=== PATIENT | male | born 1990 | race Caucasian/White ===

== ENCOUNTER 2016-08-10 12:20 | Emergency (ER) | payer SELFPAY ==
[2016-08-10] MEDS ORDERED: IBUPROFEN 800 MG TABLET PO ONE (13:01)
--- NOTE | 2016-08-10 13:02 | ER Document Report ---
ED Medical Screen (RME) - General Chief Complaint: Sore Throat Stated Complaint: SORE THROAT Time seen by provider: 12:57 Mode of Arrival: Ambulatory Information source: Patient TRAVEL OUTSIDE OF THE [place] IN LAST 30 DAYS: No - HPI Patient complains to provider of: PRODUCTIVE COUGH, SORE THROAT, EARS HURT Onset: Other - ONE MONTH Onset/Duration: Worse Quality of pain: Achy Severity: Moderate Pain Level: 3 Associated Symptoms: Cough (productive), Earache, Hurts to breath, Sore throat. denies: Fever Exacerbated by: Coughing Relieved by: Denies Similar symptoms previously: No Recently seen / treated by doctor: No - Related Data Smoking: Cigarettes Frequency of alcohol use: None Drug Abuse: None Allergies/Adverse Reactions: cefaclor [From Ceclor] Adverse Reaction (Verified 08/10/16 12:36) Urticaria Past Medical History - Social History Frequency of alcohol use: None Drug Abuse: None Physical Exam - Vital signs Vitals: Temp Pulse Resp BP Pulse Ox 98.5 F 66 16 112/58 L 100 08/10/16 12:31 08/10/16 12:31 08/10/16 12:31 08/10/16 12:31 08/10/16 12:31 Course - Vital Signs Vital signs: Temp Pulse Resp BP Pulse Ox 98.5 F 66 16 112/58 L 100 08/10/16 12:31 08/10/16 12:31 08/10/16 12:31 08/10/16 12:31 08/10/16 12:31
--- NOTE | 2016-08-10 14:16 | ER Document Report ---
ED General - General Chief Complaint: Sore Throat Stated Complaint: SORE THROAT Mode of Arrival: Ambulatory Notes: Patient is complaining of a sore throat, head and chest congestion, and headache for the past month. He thought it might be allergies and has been taking [id number] allergy medicine, with no relief. He says the sore throat has worsened over the last 3 or 4 days. His cough is productive of yellow clear phlegm, but no blood. Has had some diarrhea occasionally, but no vomiting. Has not had any fever. 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 He is on gabapentin, meloxicam, Nucynta, and Toradol for his chronic back pain. Allergic to Ceclor, but no other medicines. TRAVEL OUTSIDE OF THE [place] IN LAST 30 DAYS: No - Related Data Allergies/Adverse Reactions: cefaclor [From Ceclor] Adverse Reaction (Verified 08/10/16 12:36) Urticaria Past Medical History - General Information source: Patient - Social History Smoking Status: Unknown if Ever Smoked Cigarette use (# per day): No Frequency of alcohol use: None Drug Abuse: None Family History: Reviewed & Not Pertinent Patient has suicidal ideation: No Patient has homicidal ideation: No Review of Systems - Review of Systems Notes: REVIEW OF SYSTEMS: CONSTITUTIONAL : Denies fever. EENT: See history of present illness. Denies eye, ear, nose or other symptoms. CARDIOVASCULAR: Denies chest pain. RESPIRATORY: See history of present illness. No shortness of breath. GASTROINTESTINAL: Denies abdominal pain or nausea, vomiting, but some occasional diarrhea. GENITOURINARY: Denies difficulty or painful urinating, urinary frequency, blood in urine. MUSCULOSKELETAL: See history of present illness. Denies neck pain. Denies joint pain or swelling. SKIN: Denies rash or skin lesions. NEUROLOGICAL: Denies LOC or altered mental status. Denies sensory loss or motor deficits. ALL OTHER SYSTEMS REVIEWED AND NEGATIVE. Physical Exam - Vital signs Vitals: Temp Pulse Resp BP Pulse Ox 98.5 F 66 16 112/58 L 100 08/10/16 12:31 08/10/16 12:31 08/10/16 12:31 08/10/16 12:31 08/10/16 12:31 Interpretation: Normal - Notes Notes: PHYSICAL EXAMINATION: GENERAL: Well-appearing, in no acute distress. Afebrile. Voice sounds normal. HEAD: Atraumatic, normocephalic. ENT: oropharynx is quite crimson red bilaterally, right slightly more so than the left. However, there are no exudates and only slight soft-tissue swelling. No apparent abscess visualized. No involvement of the airway. Voice sounds normal.. Moist mucous membranes. NECK: Normal range of motion, supple. LUNGS: Breath sounds clear and equal bilaterally. HEART: Regular rate and rhythm without murmurs. No tachycardia. ABDOMEN: Soft, nontender. No guarding or rebound. BACK: No tenderness throughout entire back. EXTREMITIES: Normal range of motion without pain. NEUROLOGICAL: Normal speech, normal gait. Normal sensory, motor, and reflex exams. Awake, alert, and oriented x3. Cranial nerves normal. SKIN: Warm, dry, no rashes. Course - Re-evaluation Re-evalutation: 08/10/16 14:28 Chest x-ray is normal. - Vital Signs Vital signs: Temp Pulse Resp BP Pulse Ox 98.5 F 66 16 112/58 L 100 08/10/16 12:31 08/10/16 12:31 08/10/16 12:31 08/10/16 12:31 08/10/16 12:31 - Diagnostic Test Radiology results interpreted by me: 08/10/16 14:16 Chest x-ray is normal. Discharge - Discharge Clinical Impression: Sore throat Pharyngitis Qualifiers: Pharyngitis/tonsillitis etiology: unspecified etiology Qualified Code(s): J02.9 - Acute pharyngitis, unspecified Condition: Stable Disposition: HOME, SELF-CARE Additional Instructions: SORE THROAT: Sore throats may be caused by viruses, bacteria, or fungi. Most are due to a virus, and must get better on their own. Bacterial sore throats, particularly those due to "strep," need treatment with antibiotics. If an antibiotic is prescribed, be sure to take the medication for a full 10 days. Failure to take the antibiotic can result in complications such as rheumatic fever. Sometimes, an injection of antibiotics is given instead of pills or liquid. This single "shot" is equal in effectiveness to the oral medication. To relieve symptoms, take acetaminophen for pain. Sip clear liquids frequently, or eat popsicles or ice chips. Anesthetic sprays or lozenges may help. Make sure the air in the room is not too dry. Avoid using decongestants or antihistamines. Call the doctor if there is no improvement in two days, or if you have difficulty breathing, increasing throat pain, high fever, rash, or frequent vomiting. Possible STREP THROAT: Your sore throat is may be due to the streptococcus germ (strep throat). Strep throat usually makes you feel quite ill with fever and aches, headache, swollen sore throat, and tender bumps under the angles of the jaw. Strep throat requires antibiotic treatment. Although the sore throat may go away by itself, complications such as rheumatic fever, kidney disease, or throat abscess can occur. We usually prescribe antibiotics by mouth. Be sure to take the medicine until it's gone. If you stop early, the strep may come back. If you are vomiting, are severely ill, or can't remember to take pills, we can give you an antibiotic shot. Take acetaminophen or ibuprofen for pain and fever. Sip frequent clear liquids, or use popsicles or ice chips. Anesthetic sprays or lozenges may help. Make sure the air in the room is not too dry. Avoid using decongestants or antihistamines. Call the doctor if there is no improvement in three days, or if you have difficulty breathing, increasing throat pain, high fever, rash, or frequent vomiting. PENICILLIN V K: You have been given a prescription for Penicillin VK. Your physician has determined that this is the best antibiotic for your condition. Pen VK can be taken with meals, however more of the antibiotic gets into the bloodstream if it's taken on an empty stomach. Penicillin usually has no side effects. However, allergy to penicillins is common. If you have had an allergic reaction to any drug of the penicillin family, you should never take any other penicillin. Notify your doctor at once if you develop hives, itching, swelling, faintness, or shortness of breath. FOLLOW-UP CARE: If you have been referred to a physician for follow-up care, call the physician s office for an appointment as you were instructed or within the next two days. If you experience worsening or a significant change in your symptoms, notify the physician immediately or return to the Emergency Department at any time for re-evaluation. Prescriptions: Penicillin V Potassium [Penicillin Vk 500 mg Tablet] 500 mg PO QID #30 tablet Forms: Return to Work
[2016-08-10 14:33] VITALS: BP 103/55
== END 2016-08-10 14:33 | disposition home or self-care (01) ==
LOC: ER 12:20
DX: R09.89 Other specified symptoms and signs involving the circulatory and respiratory systems (principal); J02.9 Acute pharyngitis, unspecified; R51 Headache
CPT/HCPCS: 71020; 99283

== ENCOUNTER 2017-01-24 00:13 | Emergency (ER) | payer SELFPAY ==
[2017-01-24] MEDS ORDERED: AMOXICILLIN TR/POT CLAVULANATE 500-125 MG TAB PO ONE (03:24)
[2017-01-24] MEDS ORDERED: AMOXICILLIN TRIHYDRATE 500 MG CAPSULE PO ONE (03:24)
--- NOTE | 2017-01-24 03:26 | ER Document Report ---
ED Animal Bite - General Chief Complaint: Dog Bite Stated Complaint: DOG BITE Time Seen by Provider: 01/24/17 02:58 Notes: Patient is a 26-year-old male comes emergency department for chief complaint of dog bite to the right hand. Bites mainly over the right index finger. Patient states that the dog was stuck in a great, he approached the dog and freed its high in the leg from the great, the dog turned and bit him while he was doing this. He states the dog ran off afterwards. Gamez mix. Patient states he is already vaccinated for rabies and he also is up-to-date on his tetanus. Event happened this morning, he came in tonight because of the swelling and pain to his hand. Past medical history of chronic lower back pain, on gabapentin, tramadol, meloxicam. TRAVEL OUTSIDE OF THE [place] IN LAST 30 DAYS: No - Related Data Allergies/Adverse [facility]: [facility] Adverse Reaction (Verified 01/24/17 03:10) Urticaria Past Medical History - General Information source: Patient - Social History Smoking Status: Never Smoker Cigarette use (# per day): No Chew tobacco use (# tins/day): No Frequency of alcohol use: None Drug Abuse: None Lives with: Family Family History: Reviewed & Not Pertinent Renal/ Medical History: Denies: Hx Peritoneal Dialysis Musculoskeltal Medical History: Reports Hx Arthritis, Reports Hx Musculoskeletal Trauma Surgical Hx: Negative - Immunizations Immunizations up to date: Yes Hx Diphtheria, Pertussis, Tetanus Vaccination: Yes - unknown Review of Systems - Review of Systems Constitutional: No symptoms reported EENT: No symptoms reported Cardiovascular: No symptoms reported Respiratory: No symptoms reported Gastrointestinal: No symptoms reported Genitourinary: No symptoms reported Male Genitourinary: No symptoms reported Musculoskeletal: See HPI Skin: See HPI Hematologic/Lymphatic: No symptoms reported Neurological/Psychological: No symptoms reported Physical Exam - Vital signs Vitals: Temp Pulse Resp BP Pulse Ox 98.3 F 70 18 112/66 99 01/24/17 00:27 01/24/17 00:27 01/24/17 00:27 01/24/17 00:27 01/24/17 00:27 Interpretation: Normal - General General appearance: Appears well, Alert In distress: None - HEENT Head: Normocephalic, Atraumatic Eyes: Normal Conjunctiva: Normal Extraocular movements intact: Yes Eyelashes: Normal Pupils: PERRL Nasal: Normal Mouth/Lips: Normal Mucous membranes: Normal Pharynx: Normal Neck: Normal - Respiratory Respiratory status: No respiratory distress Chest status: Nontender Breath sounds: Normal Chest palpation: Normal - Cardiovascular Rhythm: Regular. No: Tachycardia Heart sounds: Normal auscultation, S1 appreciated, S2 appreciated Murmur: No - Abdominal Inspection: Normal Distension: No distension Bowel sounds: Normal Tenderness: Nontender Organomegaly: No organomegaly - Back Back: Normal, Nontender - Extremities General upper extremity: Other - Right hand with what appears to be small punctures over the lateral aspect of the right index finger with some soft tissue swelling of the finger, patient can still perform range of motion with flexion and extension although this appears to be painful. No erythema, no induration or fluctuance, normal capillary refill and sensation, there are already small scabs over the punctures, area has already been cleaned. Normal hand exam otherwise. Normal wrist, arm exam otherwise. General lower extremity: Normal inspection, Nontender, Normal ROM, Normal strength - Neurological Neuro grossly intact: Yes Cognition: Normal Orientation: AAOx4 Jame Coma Scale Eye Opening: Spontaneous Jame Coma Scale Verbal: Oriented [place] Coma Scale Motor: Obeys Commands Jame Coma Scale Total: 15 Speech: Normal Motor strength normal: LUE, RUE, LLE, RLE Sensory: Normal - Psychological Associated symptoms: Normal affect, Normal mood - Skin Skin Temperature: Warm Skin Moisture: Dry Skin Color: Normal Course - Re-evaluation Re-evalutation: Patient already initially cleaned the wound, patient is up-to-date on tetanus and rabies vaccines, patient placed on Augmentin, x-ray with no fracture, patient does have some soft tissue swelling, I discussed care of the wound, follow-up, strict return precautions, patient states understanding and agreement. - Vital Signs Vital signs: Temp Pulse Resp BP Pulse Ox 98.3 F 54 L 18 104/68 100 01/24/17 05:24 01/24/17 04:17 01/24/17 05:24 01/24/17 05:24 01/24/17 05:24 - Diagnostic Test Radiology reviewed: Image reviewed, Reports reviewed Discharge - Discharge Clinical Impression: Dog bite Qualifiers: Encounter type: initial encounter Qualified Code(s): W54.0XXA - Bitten by dog, initial encounter Finger injury Qualifiers: Encounter type: initial encounter Laterality: right Qualified Code(s): S69.91XA - Unspecified injury of right wrist, hand and finger(s), initial encounter Condition: Stable Disposition: HOME, SELF-CARE Additional Instructions: No fracture or foreign body is seen on x-ray. Take the Augmentin antibiotic as directed, take probiotic to avoid diarrhea Apply ice to the finger/hand (3-4 times a day for the first day), you can serena tape this for comfort, clean with soap and water. Follow-up with primary care. Return immediately for any signs of infection including increased swelling, redness, abnormal heat, fever, or any other concerning symptoms. Prescriptions: Amox Tr/Potassium Clavulanate [Augmentin 875-125 Tablet] 1 tab PO BID 7 Days
--- NOTE | 2017-01-24 04:48 | RADIOLOGY REPORT (SQ) ---
EXAM DESCRIPTION: HAND RIGHT 3 VIEWS COMPLETED DATE/TIME: 01/24/2017 4:16 am REASON FOR STUDY: dog bite, swelling COMPARISON: None. EXAM PARAMETERS: NUMBER OF VIEWS: Three views. TECHNIQUE: AP, lateral and oblique radiographic images acquired of the right hand. LIMITATIONS: None. FINDINGS: MINERALIZATION: Normal. BONES: No acute fracture or dislocation. No worrisome bone lesions. JOINTS: No effusions. SOFT TISSUES: No soft tissue swelling. No radiopaque foreign body. Known dog bite soft tissue injur y of the right 2nd finger. OTHER: No other significant finding. IMPRESSION: No significant bone or joint defect. Known soft tissue injury. TECHNICAL DOCUMENTATION: JOB ID: [id number] [employer]- All Rights Reserved
[2017-01-24] MEDS ORDERED: HYDROCODONE/ACETAMINOPHEN 5-325 MG 6 TAB/DSPK PO PRN (04:55)
[2017-01-24 05:25] VITALS: BP 104/68
== END 2017-01-24 05:25 | disposition home or self-care (01) ==
LOC: ER 00:13
DX: S61.451A Open bite of right hand, initial encounter (principal); M79.89 Other specified soft tissue disorders; M79.641 Pain in right hand; W54.0XXA Bitten by dog, initial encounter
CPT/HCPCS: 99283

== ENCOUNTER 2017-01-25 02:21 | Inpatient (IN) | payer SELFPAY ==
[2017-01-25] MEDS ORDERED: MORPHINE SULFATE 10 MG/ML INJ IV ONE (03:51)
[2017-01-25] MEDS ORDERED: AMPICILLIN SOD/SULBACTAM 3 GM VIAL IV ONE (03:51)
[2017-01-25] MEDS ORDERED: VANCOMYCIN HCL INJ 1000 MG VIAL IV ONE (03:51)
--- NOTE | 2017-01-25 04:05 | ER Document Report ---
HPI - HPI Patient complains to provider of: dog bite Onset: Other - 2 days ago Onset/Duration: Worse Quality of pain: Sharp Pain Level: 4 Context: Patient states he was bit by dog 2 days ago. Patient states that he was here yesterday for evaluation after dog bite. Patient was placed on Augmentin and has had 2 doses of this medication. Patient's tetanus immunization as well as rabies immunizations are currently up-to-date. Patient denies any fever. Patient complains of increased hand pain, redness and swelling. Patient states that he squeezed on his right second finger and noticed pus draining from his finger. Associated Symptoms: Other - right hand pain, swelling and redness. denies: Fever Exacerbated by: Movement Relieved by: Denies Similar symptoms previously: No Recently seen / treated by doctor: Yes - ROS ROS below otherwise negative: Yes Systems Reviewed and Negative: Yes All other systems reviewed and negative - CONSTITUTIONAL Constitutional: DENIES: Fever, Chills - NEURO Neurology: DENIES: Weakness - MUSCULOSKELETAL Musculoskeletal: REPORTS: Extremity pain, Swelling - DERM Skin Color: Erythema Skin Problems: Puncture Wound Past Medical History - General Information source: Patient - Social History Smoking Status: Never Smoker Frequency of alcohol use: None Drug Abuse: None Lives with: Family Family History: Reviewed & Not Pertinent Renal/ Medical History: Denies: Hx Peritoneal Dialysis Musculoskeltal Medical History: Reports Hx Arthritis, Reports Hx Musculoskeletal Trauma, Reports Other - low back pain Past Surgical History: Reports: Other - plastic facial - Immunizations Immunizations up to date: Yes Hx Diphtheria, Pertussis, Tetanus Vaccination: Yes - unknown Vertical Provider Document - CONSTITUTIONAL Agree With Documented VS: Yes Exam Limitations: No Limitations General Appearance: WD/WN, No Apparent Distress - INFECTION CONTROL TRAVEL OUTSIDE OF THE [place] IN LAST 30 DAYS: No - HEENT HEENT: Atraumatic, Normocephalic - NECK Neck: Normal Inspection - RESPIRATORY Respiratory: Breath Sounds Normal, No Respiratory Distress O2 Sat by Pulse Oximetry: 96 - CARDIOVASCULAR Cardiovascular: Regular Rate, Regular Rhythm Pulses: Normal: Radial - MUSCULOSKELETAL/EXTREMETIES Musculoskeletal/Extremeties: Tender - Right hand and second finger tenderness with swelling. Patient with marked erythema surrounding the proximal phalanx of right second finger extending to the palmar surface of right hand. Patient with 4 puncture wounds to the palmar surface of right second finger and one puncture wound to dorsal aspect of right second finger. Patient with an additional puncture wound to hyporthenar eminence. With tenderness with palpation along the flexor tendon of right second finger. With increased tenderness with passive extension of right second finger - NEURO Level of Consciousness: Awake, Alert, Appropriate Motor/Sensory: No Motor Deficit - DERM Integumentary: Warm, Dry. negative: Abscess Notes: erythema involving right second finger and palmar surface of right hand Course - Re-evaluation Re-evalutation: 01/25/17 04:[address] Kapadia, Dr. Kapadia the bedside for examination, recommends IV vancomycin and Unasyn and consultation with hand specialist for likely admission. - Vital Signs Vital signs: Temp Pulse Resp BP Pulse Ox 98.7 F 80 20 127/82 H 96 01/25/17 02:25 01/25/17 02:25 01/25/17 02:25 01/25/17 02:25 01/25/17 02:25 - Laboratory Result Diagrams: 01/25/17 04:00 01/25/17 04:00 - Consults No standard instances Time consulted: 04:07 Reason for consultation: 01/25/17 04:[address] milton regarding patient presentation and exam findings, agrees with plan for admission, recommends having patient on IV Unasyn, keeping patient n.p.o. and he will see patient in the morning Consulted provider: will see as inpatient Discharge - Discharge Clinical Impression: Dog bite Qualifiers: Encounter type: initial encounter Qualified Code(s): W54.0XXA - Bitten by dog, initial encounter Finger injury Qualifiers: Encounter type: initial encounter Laterality: right Qualified Code(s): S69.91XA - Unspecified injury of right wrist, hand and finger(s), initial encounter Cellulitis Qualifiers: Site of cellulitis: extremity Site of cellulitis of extremity: upper extremity Laterality: right Qualified Code(s): L03.113 - Cellulitis of right upper limb Condition: Stable Disposition: ADMITTED INPATIENT Admitting Provider: dr milton Unit Admitted: Medical Floor
[2017-01-25 04:16] LABS: ABSOLUTE EOSINOPHILS # (AUTO) 0.1 10^3/uL (0.0-0.6); ABSOLUTE LYMPHOCYTES (AUTO) 1.6 10^3/uL (0.5-4.7); ABSOLUTE MONOCYTES (AUTO) 0.8 10^3/uL (0.1-1.4); ABSOLUTE NEUT (AUTO) 7.7 10^3/uL (1.7-8.2); BASOPHILS % (AUTO) 0.4 % (0-2); EOSINOPHILS % (AUTO) 0.9 % (0-6); HEMOGLOBIN 15.1 g/dL (13.5-17.0); HGB HCT DIFFERENCE 1.3; LYMPHOCYTES % (AUTO) 15.4 % (13-45); MEAN CORPUSCULAR HEMOGLOBIN 29.9 pg (27.0-33.4); MEAN CORPUSCULAR HGB CONC 34.4 g/dL (32.0-36.0); MEAN CORPUSCULAR VOLUME 87 fl (80-97); MONOCYTES % (AUTO) 7.7 % (3-13); RED BLOOD COUNT 5.06 10^6/uL (4.35-5.55); RED CELL DISTRIBUTION WIDTH 12.9 % (11.5-14.0); SEGMENTED NEUTROPHILS % (AUTO) 75.6 % (42-78); WHITE BLOOD COUNT 10.2 10^3/uL (4.0-10.5)
[2017-01-25 04:36] LABS: ANION GAP 13 (5-19); BLOOD UREA NITROGEN 15 mg/dL (7-20); CALCIUM 9.5 mg/dL (8.4-10.2); CARBON DIOXIDE 24 mmol/L (22-30); CHLORIDE 104 mmol/L (98-107); CREATININE RESULT 1.13 mg/dL (0.52-1.25); GLUCOSE 91 mg/dL (75-110); POTASSIUM 3.7 mmol/L (3.6-5.0); SODIUM 140.7 mmol/L (137-145)
[2017-01-25] MEDS ORDERED: NORMAL SALINE 1000 ML 1,000 ML IV PRN (04:45)
[2017-01-25] MEDS ORDERED: RINGERS SOLUTION,LACTATED 1,000 ML IV PRN (08:12)
[2017-01-25] MEDS ORDERED: GLUCAGON,HUMAN RECOMB 1 MG INJ SUBCUT PRN (08:12)
[2017-01-25] MEDS ORDERED: DEXTROSE 50%-WATER 25 GM/50 ML DISP.SYRIN IV PRN ×2 (08:12)
[2017-01-25] MEDS ORDERED: DEXTROSE 40% GEL 15 GM TUBE PO PRN ×2 (08:12)
[2017-01-25] MEDS ORDERED: LIDOCAINE 2% INJ-PF (20 MG/ML) 10 ML AMPUL ONE (10:11)
[2017-01-25] MEDS ORDERED: GLYCOPYRROLATE INJ 0.4 MG/2 ML VIAL ONE (10:11)
[2017-01-25] MEDS ORDERED: AMPICILLIN SOD/SULBACTAM 3 GM VIAL IV SCH (10:20)
[2017-01-25] MEDS: MORPHINE SULFATE 10 MG/ML INJ IV PRN ×2 (10:59→22:46)
[2017-01-25] MEDS: AMPICILLIN SODIUM/SULBACTAM NA 1.5 GM in NORMAL SALINE 50 ML IV SCH ×2 (11:53→18:01)
[2017-01-25] MEDS ORDERED: AMPICILLIN SOD/SULBACTAM 1.5 GM VIAL IV SCH (12:00)
--- NOTE | 2017-01-25 13:03 | PDOC H&P ---
History of Present Illness Admission Date/PCP: 01/25/17 08:12 Patient complains of: Right hand pain History of Present Illness: ADIS BAI is a 26 year old male who sustained a dog bite on 01/23/17 of a unknown dog when he was attempting to help the dog that was stuck . The dog subsequently bit him in the right hand. He was seen at the emergency room we restarted on Augmentin. After approximately 24 hours of work he noticed increasing redness swelling and pain in his hand and difficulty grasping objects. He also complains of numbness and tingling in his index finger since the date of injury. Denies fever chills or sweats. Pain 01/15. Past Medical History Musculoskeltal Medical History: Reports: Arthritis, Other - low back pain Past Surgical History Past Surgical History: Reports: Other - plastic facial Social History Lives with: Family Smoking Status: Never Smoker - Advance Directive Resuscitation Status: Full Code Family History Family History: Reviewed & Not Pertinent Parental Family History Reviewed: No Children Family History Reviewed: No Sibling(s) Family History Reviewed.: No Medication/Allergy Home Medications: Amitriptyline HCl [Elavil 10 Mg Tablet] 10 mg PO QHS 01/25/17 Gabapentin 600 mg PO TIDP PRN 01/25/17 Meloxicam [Mobic] 15 mg PO DAILY 01/25/17 Tramadol HCl 50 mg PO BIDP PRN 01/25/17 Allergies/Adverse Reactions: cefaclor [From [facility]] Adverse Reaction (Verified 01/24/17 03:10) Urticaria Review of Systems All systems: as per PMH Constitutional: ABSENT: chills, fever(s), headache(s), weight gain, weight loss Eyes: ABSENT: visual disturbances Ears: ABSENT: hearing changes Cardiovascular: ABSENT: chest pain, dyspnea on exertion, edema, orthropnea, palpitations Respiratory: ABSENT: cough, hemoptysis Gastrointestinal: ABSENT: abdominal pain, constipation, diarrhea, hematemesis, hematochezia, nausea, vomiting Genitourinary: ABSENT: dysuria, hematuria Musculoskeletal: PRESENT: as per HPI Integumentary: PRESENT: wounds. ABSENT: rash Neurological: ABSENT: abnormal gait, abnormal speech, confusion, dizziness, focal weakness, syncope Psychiatric: ABSENT: anxiety, depression, homidical ideation, suicidal ideation Endocrine: ABSENT: cold intolerance, heat intolerance, menstrual abnormalities, polydipsia, polyuria Hematologic/Lymphatic: ABSENT: easy bleeding, easy bruising, lymphadenopathy Physical Exam Vital Signs: Temp Pulse Resp BP Pulse Ox 98.0 F 79 12 99/58 L 99 01/25/17 11:13 01/25/17 11:13 01/25/17 11:13 01/25/17 11:13 01/25/17 11:13 General appearance: PRESENT: no acute distress, well-developed, well-nourished Head exam: PRESENT: atraumatic, normocephalic Eye exam: PRESENT: conjunctiva pink, EOMI, PERRLA. ABSENT: scleral icterus Ear exam: PRESENT: normal external ear exam Mouth exam: PRESENT: moist, tongue midline Neck exam: PRESENT: full ROM. ABSENT: carotid bruit, JVD, lymphadenopathy, thyromegaly Cardiovascular exam: PRESENT: RRR. ABSENT: diastolic murmur, rubs, systolic murmur Pulses: PRESENT: normal dorsalis pedis pul, +2 pedal pulses bilateral Vascular exam: PRESENT: normal capillary refill GI/Abdominal exam: PRESENT: normal bowel sounds, soft. ABSENT: distended, guarding, mass, organolmegaly, rebound, tenderness Rectal exam: PRESENT: deferred Musculoskeletal exam: PRESENT: other - Right hand: Notable erythema throughout the palm of the hand beginning at the PIP joint of the index finger palmarly extending along the second webspace to just proximal to the level of the A1 marilee exiting along the thumb-index webspace. Tenderness to palpation on the flexor sheath. Pain with extension. Notable swelling. Patient lacks 2 point discrimination along the radial digital nerve distribution of the index finger. 2 point discrimination 5 mm ulnar digital nerve. The less than 2 seconds. Patient is intact IP/MP joint flexion but limited secondary to pain. No tracking erythema proximal to the wrist crease. Neurological exam: PRESENT: alert, awake, oriented to person, oriented to place , oriented to time, oriented to situation, CN II-XII grossly intact. ABSENT: motor sensory deficit Psychiatric exam: PRESENT: appropriate affect, normal mood. ABSENT: homicidal ideation, suicidal ideation Skin exam: PRESENT: dry, intact, warm. ABSENT: cyanosis, rash Assessment & Plan - Diagnosis (1) Flexor tenosynovitis of finger Is this a current diagnosis for this admission?: YesPlan: Examination patient has findings of early flexor tenosynovitis secondary to dog bite wound. Patient states she is up-to-date on his tetanus as well as rabies. I given a flexor Fern synovitis I have recommended operative intervention which includes irrigation and debridement of the index finger. Patient understands risks and benefits of the surgical procedure including neurovascular wrist, postoperative pain, recurrent infection requiring repeat surgical intervention, postoperative stiffness and contracture and any unforeseen complication. Patient has verbalized understanding and consented for the above procedure. In the time being he will be started on Unasyn for Pasteurella coverage.
[2017-01-25] MEDS ORDERED: BUPIVACAINE HCL 0.5 % INJ/PF 30 ML SDV ONE (18:08)
[2017-01-25] MEDS ORDERED: LIDOCAINE 1% INJ-PF (10 MG/ML) 30 ML SDV ONE (18:09)
[2017-01-25] MEDS ORDERED: BACITRACIN INJ 50,000 UNIT VIAL ONE (18:09)
[2017-01-25] MEDS ORDERED: PROPOFOL INJ 200 MG/20 ML VIAL IV ONE (18:11)
[2017-01-25] MEDS ORDERED: ACETAMINOPHEN 100 ML IV ONE (18:11)
[2017-01-25] MEDS ORDERED: MIDAZOLAM 2 MG/2 ML INJ ONE ×2 (18:11)
[2017-01-25] MEDS ORDERED: FENTANYL CITRATE INJ/PF 100 MCG/2 ML AMPUL ONE (18:11)
[2017-01-25] MEDS ORDERED: DEXMEDETOMIDINE INJ 80 MCG/20 ML VIAL IV ONE (18:12)
[2017-01-25] MEDS ORDERED: OXYCODONE-ACETAMINOPHEN 5-325 MG TABLET PO PRN ×2 (18:46)
[2017-01-25] MEDS ORDERED: ONDANSETRON HCL INJ/PF 4 MG/2 ML SDV IV PRN ×2 (18:46→23:24)
[2017-01-25] MEDS ORDERED: PROMETHAZINE HCL INJ 25 MG/1 ML VIAL IV PRN ×2 (18:46)
[2017-01-25] MEDS ORDERED: DIPHENHYDRAMINE HCL 50 MG/ML VIAL IV PRN (18:46)
[2017-01-25] MEDS ORDERED: FENTANYL CITRATE INJ/PF 100 MCG/2 ML AMPUL IV PRN ×3 (18:46)
[2017-01-25] MEDS ORDERED: MORPHINE SULFATE 10 MG/ML INJ IV PRN (18:46)
[2017-01-25] MEDS ORDERED: MEPERIDINE HCL/PF INJ 25 MG/1 ML DISP.SYRIN IV PRN (18:46)
--- NOTE | 2017-01-25 19:07 | Operative Report ---
Operative Report PREOPERATIVE DIAGNOSIS: Flexor Tenosynovitis Right Index Finger S/P Dog Bite POSTOPERATIVE DIAGNOSIS: Same OPERATION: Irrigation and Debridement Flexor Sheath Right Index Finger SURGEON: OSBALDO HARRINGTON ANESTHESIA: GA TISSUE REMOVED OR ALTERED: Aerobic/Anaerobic Culture COMPLICATIONS: None ESTIMATED BLOOD LOSS: Minimal PROCEDURE: Indication for above procedure: 26-year-old male who sustained a dog bite injury to his right hand. He was seen at the emergency room approximately 48 hours ago and he was started on Augmentin. According to the patient over the past 24 hours he had increasing pain swelling and redness. He was then admitted to the orthopedic service. On examination patient had findings suggesting flexor tenosynovitis thus I recommended operative intervention. Risks and benefits were explained to the patient understanding consented for the procedure. Procedure In Detail: Patient was seen and evaluated in the preoperative holding area. The right upper extremity was initialized and marked. Patient received 2g of Ancef IV for bacterial prophylaxis. Patient was taken back to the operative room where transferred to the operative table and placed under general anesthesia. Once they were adequately anesthetized a nonsterile tourniquet was placed on the upper extremity. A surgical team debriefing was performed ensuring all instrumentation was available, the surgical procedure was discussed with possible concerns reviewed. Digital block was performed utilizing 10 cc of 0.5 % Marcaine without epinephrine. The upper extremity was prepped with Betadine and draped in a sterile fashion. A timeout was done identifying correct patient, procedure and extremity everyone in attendance agree with this and verbalized no concerns. The extremity was elevated the tourniquet was inflated to 250 mmHg. A Jessica's shaped skin incision was made centered over the MCP joint at the location of the patient's puncture wound. Culture swabs were obtained from the site of injury. Radial and ulnar neurovascular bundle was identified and retracted, the A1 marilee was then released in its entirety. There was evidence of cloudy appearing tissue from the flexor sheath. A second incision was made distally at the level of the DIP joint. Blunt dissection was performed. A pediatric feeding tube was then placed from proximal to distal copious amounts of irrigation were placed into the wound site and through the pediatric feeding tube. Pediatric feeding tube was left in place for drainage purposes and the skin incisions closed loosely with interrupted 4-0 nylon suture. Wound was dressed with Xeroform 4 x 4's and a loosely applied Coban. Postoperative plan: Patient continue IV antibiotics until clinical improvement is noted. Anticipate discharge possible . He will be continued on Unasyn with cultures to find alternative microbe.
[2017-01-25] MEDS: OXYCODONE-ACETAMINOPHEN 5-325 MG TABLET PO PRN (21:37)
[2017-01-25] MEDS: CIPROFLOXACIN 400 MG/D5W RTU 200 ML IV SCH (21:37)
[2017-01-25] MEDS: AMPICILLIN SODIUM/SULBACTAM NA 3 GM in NORMAL SALINE 100 ML IV SCH (23:17)
[2017-01-26] MEDS ORDERED: AMPICILLIN SOD/SULBACTAM 3 GM VIAL IV SCH
[2017-01-26] MEDS: OXYCODONE-ACETAMINOPHEN 5-325 MG TABLET PO PRN ×2 (02:15→19:45)
[2017-01-26] MEDS: MORPHINE SULFATE 10 MG/ML INJ IV PRN ×5 (02:15→21:57)
[2017-01-26] MEDS: AMPICILLIN SODIUM/SULBACTAM NA 3 GM in NORMAL SALINE 100 ML IV SCH ×4 (05:22→23:40)
[2017-01-26 07:10] LABS: ABSOLUTE BASOPHILS # (AUTO) 0.1 10^3/uL (0.0-0.2); ABSOLUTE EOSINOPHILS # (AUTO) 0.2 10^3/uL (0.0-0.6); ABSOLUTE LYMPHOCYTES (AUTO) 2.1 10^3/uL (0.5-4.7); ABSOLUTE MONOCYTES (AUTO) 0.9 10^3/uL (0.1-1.4); ABSOLUTE NEUT (AUTO) 8.6 10^3/uL (1.7-8.2); BASOPHILS % (AUTO) 0.7 % (0-2); EOSINOPHILS % (AUTO) 1.5 % (0-6); HEMATOCRIT 44.9 % (37.9-51.0); HEMOGLOBIN 14.9 g/dL (13.5-17.0); HGB HCT DIFFERENCE -0.2; LYMPHOCYTES % (AUTO) 17.9 % (13-45); MEAN CORPUSCULAR HEMOGLOBIN 29.2 pg (27.0-33.4); MEAN CORPUSCULAR HGB CONC 33.2 g/dL (32.0-36.0); MEAN CORPUSCULAR VOLUME 88 fl (80-97); MONOCYTES % (AUTO) 7.8 % (3-13); RED BLOOD COUNT 5.11 10^6/uL (4.35-5.55); RED CELL DISTRIBUTION WIDTH 13.1 % (11.5-14.0); SEGMENTED NEUTROPHILS % (AUTO) 72.1 % (42-78); WHITE BLOOD COUNT 11.9 10^3/uL (4.0-10.5)
[2017-01-26] MEDS: CIPROFLOXACIN 400 MG/D5W RTU 200 ML IV SCH ×2 (09:37→21:56)
[2017-01-26] MEDS ORDERED: LORAZEPAM INJ 2 MG/1 ML VIAL IV PRN (12:06)
[2017-01-26] MEDS ORDERED: PROMETHAZINE HCL 25 MG TABLET PO PRN (12:07)
--- NOTE | 2017-01-26 16:52 | PDOC PROGRESS REPORT ---
Subjective Progress Note for:: 01/26/17 Subjective:: 26-year-old gentleman finally having his nausea under control with the p.o. Phenergan. No fevers or acute issues overnight. Physical Exam Vital Signs: Temp Pulse Resp BP Pulse Ox 36.7 C 54 L 18 103/68 97 01/26/17 08:51 01/26/17 08:51 01/26/17 08:51 01/26/17 08:51 01/26/17 08:51 Intake & Output 01/25/17 01/26/17 01/27/17 06:59 06:59 06:59 Intake Total 4619 Output Total 1000 Balance 3619 Weight 60 kg Back of Hands Image: 1 - Dressing showing some bloody drainage but the most part is dry. Brisk capillary refill palpation of the distal tips of the index and middle finger. Sensation grossly intact to light touch. Results Laboratory Results: 01/26/17 06:39 01/26/17 06:39 WBC 11.9 H RBC 5.11 Hgb 14.9 Hct 44.9 MCV 88 MCH 29.2 MCHC 33.2 RDW 13.1 Plt Count 177 Seg Neutrophils % 72.1 Lymphocytes % 17.9 Monocytes % 7.8 Eosinophils % 1.5 Basophils % 0.7 Absolute Neutrophils 8.6 H Absolute Lymphocytes 2.1 Absolute Monocytes 0.9 Absolute Eosinophils 0.2 Absolute Basophils 0.1 Assessment & Plan - Diagnosis (1) Flexor tenosynovitis of finger Is this a current diagnosis for this admission?: Yes - Plan Summary Plan Summary: 26-year-old gentleman postop day 1 from I&D of flexor tenosynovitis. Patient pain is adequately controlled. Nausea is also better controlled today. Monitor cultures. Dressing change per the Dr. Elizabeth will happen tomorrow.
[2017-01-27] MEDS: OXYCODONE-ACETAMINOPHEN 5-325 MG TABLET PO PRN ×4 (02:15→23:23)
[2017-01-27 05:18] LABS: ABSOLUTE EOSINOPHILS # (AUTO) 0.2 10^3/uL (0.0-0.6); ABSOLUTE MONOCYTES (AUTO) 0.7 10^3/uL (0.1-1.4); ABSOLUTE NEUT (AUTO) 5.7 10^3/uL (1.7-8.2); BASOPHILS % (AUTO) 0.5 % (0-2); EOSINOPHILS % (AUTO) 2.2 % (0-6); HEMATOCRIT 43.6 % (37.9-51.0); HEMOGLOBIN 14.7 g/dL (13.5-17.0); HGB HCT DIFFERENCE 0.5; LYMPHOCYTES % (AUTO) 23.4 % (13-45); MEAN CORPUSCULAR HGB CONC 33.7 g/dL (32.0-36.0); MEAN CORPUSCULAR VOLUME 89 fl (80-97); MONOCYTES % (AUTO) 8.2 % (3-13); RED BLOOD COUNT 4.89 10^6/uL (4.35-5.55); RED CELL DISTRIBUTION WIDTH 12.9 % (11.5-14.0); SEGMENTED NEUTROPHILS % (AUTO) 65.7 % (42-78); WHITE BLOOD COUNT 8.7 10^3/uL (4.0-10.5)
[2017-01-27] MEDS: AMPICILLIN SODIUM/SULBACTAM NA 3 GM in NORMAL SALINE 100 ML IV SCH ×4 (05:30→23:23)
[2017-01-27] MEDS: CIPROFLOXACIN 400 MG/D5W RTU 200 ML IV SCH (13:10)
[2017-01-27] MEDS: MORPHINE SULFATE 10 MG/ML INJ IV PRN (13:44)
[2017-01-27] MEDS ORDERED: CIPROFLOXACIN HCL 500 MG TABLET PO SCH (22:00)
[2017-01-28 04:51] LABS: ABSOLUTE EOSINOPHILS # (AUTO) 0.2 10^3/uL (0.0-0.6); ABSOLUTE LYMPHOCYTES (AUTO) 2.2 10^3/uL (0.5-4.7); ABSOLUTE MONOCYTES (AUTO) 0.6 10^3/uL (0.1-1.4); ABSOLUTE NEUT (AUTO) 5.1 10^3/uL (1.7-8.2); BASOPHILS % (AUTO) 0.4 % (0-2); EOSINOPHILS % (AUTO) 2.4 % (0-6); HEMATOCRIT 45.4 % (37.9-51.0); HEMOGLOBIN 15.3 g/dL (13.5-17.0); HGB HCT DIFFERENCE 0.5; LYMPHOCYTES % (AUTO) 27.4 % (13-45); MEAN CORPUSCULAR HEMOGLOBIN 29.6 pg (27.0-33.4); MEAN CORPUSCULAR HGB CONC 33.8 g/dL (32.0-36.0); MEAN CORPUSCULAR VOLUME 88 fl (80-97); MONOCYTES % (AUTO) 7.8 % (3-13); RED BLOOD COUNT 5.19 10^6/uL (4.35-5.55); RED CELL DISTRIBUTION WIDTH 12.9 % (11.5-14.0); WHITE BLOOD COUNT 8.2 10^3/uL (4.0-10.5)
[2017-01-28] MEDS: AMPICILLIN SODIUM/SULBACTAM NA 3 GM in NORMAL SALINE 100 ML IV SCH (05:07)
[2017-01-28] MEDS: OXYCODONE-ACETAMINOPHEN 5-325 MG TABLET PO PRN (06:22)
[2017-01-28 08:25] VITALS: BP 114/70
--- NOTE | 2017-01-28 12:37 | PDOC DISCHARGE SUMMARY ---
General - Admit/Disc Date/PCP Admission Date/Primary Care Provider: 01/25/17 08:12 Discharge Date: 01/28/17 - Discharge Diagnosis (1) Flexor tenosynovitis of finger Is this a current diagnosis for this admission?: Yes - Additional Information Resuscitation Status: Full Code Discharge Diet: As Tolerated Discharge Activity: No Lifting Over 10 Pounds, No Lifting/Push/Pulling Home Medications: Amitriptyline HCl [Elavil 10 mg Tablet] 10 mg PO QHS 01/25/17 Amox Tr/Potassium Clavulanate [Augmentin 875-125 mg Tablet] 1 tab PO BID #20 tablet 01/25/17 Gabapentin 600 mg PO TIDP PRN 01/25/17 Meloxicam [Mobic] 15 mg PO DAILY 01/25/17 Oxycodone HCl/Acetaminophen [Percocet 5-325 mg Tablet] 1 - 2 tab PO ASDIR PRN # 25 tablet 01/25/17 Tramadol HCl 50 mg PO BIDP PRN 01/25/17 History of Present Illness History of Present Illness: ADIS BAI is a 26 year old male who sustained a dog bite on 01/23/17 of a unknown dog when he was attempting to help the dog that was stuck . The dog subsequently bit him in the right hand. He was seen at the emergency room we restarted on Augmentin. After approximately 24 hours of work he noticed increasing redness swelling and pain in his hand and difficulty grasping objects. He also complains of numbness and tingling in his index finger since the date of injury. Denies fever chills or sweats. Pain 6/10. Hospital Course Hospital Course: Patient was admitted to the orthopedic service and started on Unasyn prophylactically for possible Pasteurella species status post dog bite. He failed to see significant improvement after IV antibiotics and thus the decision was made to proceed with irrigation and debridement of his right index finger flexor tenosynovitis on 01/25/17. Tolerated procedure well. He was continued on IV Unasyn cultures then demonstrated methicillin sensitive staph aureus which was being adequately covered with current antibiotic regimen. On he continued to have some discomfort and swelling but noted his pain improved. At that point we decided patient was stable for discharge. Physical Exam Vital Signs: Temp Pulse Resp BP Pulse Ox 98.0 F 65 12 114/70 100 01/28/17 07:56 01/28/17 07:56 01/28/17 07:56 01/28/17 07:56 01/28/17 07:56 Intake & Output 01/27/17 01/28/17 01/29/17 06:59 06:59 06:59 Intake Total 53477 6009 Balance 19347 6009 Weight 60.1 kg 60.4 kg General appearance: PRESENT: no acute distress, well-developed, well-nourished Head exam: PRESENT: atraumatic, normocephalic Eye exam: PRESENT: conjunctiva pink, EOMI, PERRLA. ABSENT: scleral icterus Ear exam: PRESENT: normal external ear exam Mouth exam: PRESENT: moist, tongue midline Neck exam: PRESENT: full ROM. ABSENT: carotid bruit, JVD, lymphadenopathy, thyromegaly Cardiovascular exam: PRESENT: RRR. ABSENT: diastolic murmur, rubs, systolic murmur Pulses: PRESENT: normal dorsalis pedis pul, +2 pedal pulses bilateral Vascular exam: PRESENT: normal capillary refill GI/Abdominal exam: PRESENT: normal bowel sounds, soft. ABSENT: distended, guarding, mass, organolmegaly, rebound, tenderness Rectal exam: PRESENT: deferred Musculoskeletal exam: PRESENT: other - Right index finger: Mild erythema at the incision site. No tracking erythema. Tenderness at the incision site no tenderness on the flexor sheath. No active drainage. Refill less than 2 seconds. Intact sensation to light touch but paresthesias along the radial digital nerve distribution. Intact DIP/PIP joint flexion. No tenderness along the palm. Neurological exam: PRESENT: alert, awake, oriented to person, oriented to place , oriented to time, oriented to situation, CN II-XII grossly intact. ABSENT: motor sensory deficit Psychiatric exam: PRESENT: appropriate affect, normal mood. ABSENT: homicidal ideation, suicidal ideation Skin exam: PRESENT: dry, intact, warm. ABSENT: cyanosis, rash Results Laboratory Results: 01/28/17 04:13 01/28/17 04:13 WBC 8.2 RBC 5.19 Hgb 15.3 Hct 45.4 MCV 88 MCH 29.6 MCHC 33.8 RDW 12.9 Plt Count 176 Seg Neutrophils % 62.0 Lymphocytes % 27.4 Monocytes % 7.8 Eosinophils % 2.4 Basophils % 0.4 Absolute Neutrophils 5.1 Absolute Lymphocytes 2.2 Absolute Monocytes 0.6 Absolute Eosinophils 0.2 Absolute Basophils 0.0 01/25/17 18:40 Finger - Right Index Finger Gram Stain - Final Plan Discharge Plan: Patient has progressed probably after I&D of flexor tenosynovitis of his right index finger. He is currently being treated adequately with the IV Unasyn and we will transition him to Augmentin patient does have a cefaclor allergy but he states he tolerated the Augmentin previously. He will be given twice daily Hibiclens soaks and I have encouraged aggressive range of motion attempting to make a full composite fist. He will follow-up with me in 7 days for wound check and possible suture removal. If patient has any increasing redness, pain , swelling, temperature greater than 101.5 he will contact our office or present to the emergency room. On 01/28/17 patient orthopedically and medically stable for discharge to home.
== END 2017-01-28 09:43 | disposition home or self-care (01) | DRG 513 ==
LOC: ER 02:21 → UNDOADMIN 04:34 → EH 04:34 → 5 07:36 → EH 08:12
PROVIDERS: ADMIT Orthopaedic Surgery; ATTEND Orthopaedic Surgery
PROC: 0LN70ZZ Release Right Hand Tendon, Open Approach (ICD-10-PCS; 2017-01-25)
PROC: 0L9700Z Drainage of Right Hand Tendon with Drainage Device, Open Approach (ICD-10-PCS; principal; 2017-01-25 18:30)
DX: M65.141 Other infective (teno)synovitis, right hand (principal); L03.113 Cellulitis of right upper limb; S69.91XA Unspecified injury of right wrist, hand and finger(s), initial encounter; W54.0XXA Bitten by dog, initial encounter; B95.61 Methicillin susceptible Staphylococcus aureus infection as the cause of diseases classified elsewhere; M19.90 Unspecified osteoarthritis, unspecified site; Z79.899 Other long term (current) drug therapy; Z88.1 Allergy status to other antibiotic agents
CPT/HCPCS: 1810; 36415; 80048; 85025; 87040; 87070; 87075; 87077; 87186; 87205; 96374; 99284; J0131; J0295; J0744; J2060; J2250; J2270; J2405; J2704; J3010; J3370; J3490

== ENCOUNTER 2017-05-19 01:23 | Emergency (ER) | payer SELFPAY ==
[2017-05-19] MEDS ORDERED: OXYCODONE-ACETAMINOPHEN 5-325 MG TABLET PO ONE (02:08)
[2017-05-19] MEDS ORDERED: ONDANSETRON 4 MG TAB.RAPDIS PO ONE (02:08)
--- NOTE | 2017-05-19 02:09 | ER Document Report ---
ED Neck/Back Problem - General Chief Complaint: Back Pain Stated Complaint: BACK PAIN Time Seen by Provider: 05/19/17 02:01 Mode of Arrival: Ambulatory Information source: Patient Notes: Patient is a 26-year-old male with a history of back pain, multiple back procedures who got injections into his right sacroiliac joint today by his orthopedic doctor and is presenting to the ER today complaining of pain around the site of injection. Patient has had these injections before, states that he thinks it was steroid injections, but has never had this reaction. Patient states that he is having sharp pain radiating down his right leg. He denies any numbness or tingling, loss of bladder or bowel function. He states he has a history of multiple herniated disks. TRAVEL OUTSIDE OF THE [place] IN LAST 30 DAYS: No - Related Data Allergies/Adverse Reactions: cefaclor [From [employer]] Adverse Reaction (Verified 01/24/17 03:10) Urticaria Home Medications: Current Home Medications Ibuprofen [Motrin 800 mg Tablet] 800 mg PO Q8H PRN 05/19/17 [History] Lidocaine [Lidoderm 5% (700 mg) Transdermal Patch] 1 patch TP DAILY 05/19/17 [ History] Past Medical History - General Information source: Patient - Social History Smoking Status: Never Smoker Chew tobacco use (# tins/day): No Frequency of alcohol use: None Drug Abuse: None Family History: Reviewed & Not Pertinent Patient has suicidal ideation: No Patient has homicidal ideation: No Renal/ Medical History: Denies: Hx Peritoneal Dialysis Musculoskeltal Medical History: Reports Hx Arthritis, Reports Hx Musculoskeletal Trauma Psychiatric Medical History: Reports: Hx Depression Past Surgical History: Reports: Other - plastic facial - Immunizations Immunizations up to date: Yes Hx Diphtheria, Pertussis, Tetanus Vaccination: Yes - unknown Review of Systems - Review of Systems Constitutional: No symptoms reported EENT: No symptoms reported Cardiovascular: No symptoms reported Respiratory: No symptoms reported Gastrointestinal: No symptoms reported Genitourinary: No symptoms reported Male Genitourinary: No symptoms reported Musculoskeletal: See HPI Skin: No symptoms reported Hematologic/Lymphatic: No symptoms reported Neurological/Psychological: No symptoms reported Physical Exam - Vital signs Vitals: Temp Pulse Resp BP Pulse Ox 99.4 F 101 H 24 H 126/82 H 98 05/19/17 01:29 05/19/17 01:29 05/19/17 01:29 05/19/17 01:29 05/19/17 01:29 - Notes Notes: PHYSICAL EXAMINATION: GENERAL: Uncomfortable appearing, lying flat on stomach in bed, in no acute distress. HEAD: Atraumatic, normocephalic. EYES: Pupils equal round and reactive to light, extraocular movements intact, sclera anicteric, conjunctiva are normal. NECK: Normal range of motion, supple without lymphadenopathy LUNGS: CTAB and equal. No wheezes rales or rhonchi. HEART: Regular rate and rhythm without murmursnd BACK: Right SI joint tenderness, injection site noted with slight ecchymosis surrounding, thoracic, lumbar vertebral tenderness, normal ROM GI/: no CVA tenderness EXTREMITIES: Normal range of motion, no pitting edema. No cyanosis. NEUROLOGICAL: Cranial nerves grossly intact. Normal sensory/motor exams. PSYCH: Normal mood, normal affect. SKIN: Warm, Dry, normal turgor, see back above Course - Re-evaluation Re-evalutation: 05/19/17 03:51 X-ray of the lumbar spine and sacroiliac joints negative for any acute pathology today. Patient needs to follow-up with his orthopedic doctor. He does feel better after some pain medication given here in the emergency department. Has better range of motion. - Vital Signs Vital signs: Temp Pulse Resp BP Pulse Ox 97.8 F 63 24 H 111/56 L 95 05/19/17 03:35 05/19/17 03:35 05/19/17 01:29 05/19/17 03:35 05/19/17 03:35 Discharge - Discharge Clinical Impression: Back pain Qualifiers: Back pain location: low back pain Chronicity: acute Back pain laterality: right Sciatica presence: with sciatica Sciatica laterality: sciatica of right side Qualified Code(s): M54.41 - Lumbago with sciatica, right side Condition: Stable Disposition: HOME, SELF-CARE Additional Instructions: Return immediately for any new or worsening symptoms. Follow up with primary care provider, call tomorrow to make followup appointment. Prescriptions: Cyclobenzaprine HCl [Flexeril 10 mg Tablet] 10 mg PO TIDP PRN #15 tab PRN Reason: Hydrocodone/Acetaminophen [[place] 5-325 mg Tablet] 1 tab PO Q4 PRN #15 tablet PRN Reason: Forms: Return to Work
--- NOTE | 2017-05-19 03:01 | RADIOLOGY REPORT (SQ) ---
EXAM DESCRIPTION: L SPINE WHOLE COMPLETED DATE/TIME: 05/19/2017 2:41 am REASON FOR STUDY: low back pain,sacral pain COMPARISON: CT, 02/21/2016. NUMBER OF VIEWS: Five views including obliques. TECHNIQUE: AP, lateral, oblique, and sacral radiographic images acquired of the lumbar spine. LIMITATIONS: None. FINDINGS: MINERALIZATION: Normal. SEGMENTATION: Normal. No transitional anatomy. ALIGNMENT: 0.3 cm L5 degenerative retrolisthesis, stable. Prominent notochordal remnant of the anter ior T12 inferior endplate. VERTEBRAE: Mild chronic developmental T12 anterior vertebral height loss, stable. DISCS: Preserved height. No significant osteophytes or end plate irregularity. POSTERIOR ELEMENTS: Pedicles and facets are intact. No pars defect or posterior arch defects. HARDWARE: None in the spine. PARASPINAL SOFT TISSUES: Normal. PELVIS: Intact as visualized. No fractures or worrisome bone lesions. SI joints intact. OTHER: None. IMPRESSION: No acute findings. TECHNICAL DOCUMENTATION: JOB ID: [id number] [employer]- All Rights Reserved
--- NOTE | 2017-05-19 03:02 | RADIOLOGY REPORT (SQ) ---
EXAM DESCRIPTION: SACRUM AND COCCYX COMPLETED DATE/TIME: 05/19/2017 2:41 am REASON FOR STUDY: low back pain,sacral pain COMPARISON: None. NUMBER OF VIEWS: Two views. TECHNIQUE: AP and lateral views of the sacrum and coccyx. LIMITATIONS: None. FINDINGS: MINERALIZATION: Normal. BONES: No acute fracture or dislocation. No worrisome bone lesions. SOFT TISSUES: No soft tissue swelling. No foreign body. OTHER: No other significant finding. IMPRESSION: NEGATIVE STUDY OF THE SACRUM AND COCCYX. TECHNICAL DOCUMENTATION: JOB ID: [id number] [employer]- All Rights Reserved
[2017-05-19 03:38] VITALS: BP 111/56
== END 2017-05-19 03:39 | disposition home or self-care (01) ==
LOC: ER 01:23
DX: G89.29 Other chronic pain (principal); M54.41 Lumbago with sciatica, right side; Z98.890 Other specified postprocedural states
CPT/HCPCS: 99283; 72220; 72110; S0119

== ENCOUNTER 2017-09-12 19:13 | Emergency (ER) | payer SELFPAY ==
[2017-09-12] MEDS ORDERED: HYDROCODONE/ACETAMINOPHEN 5-325 MG TABLET PO ONE (21:20)
[2017-09-12] MEDS ORDERED: ONDANSETRON 4 MG TAB.RAPDIS PO ONE ×2 (21:23→21:37)
--- NOTE | 2017-09-12 21:39 | ER Document Report ---
ED Fall - General Chief Complaint: Fall Stated Complaint: FALL,BACK/LEG PAIN Time Seen by Provider: 09/12/17 20:58 Mode of Arrival: Ambulatory Information source: Patient Notes: Patient is a 26-year-old male who presents to the ER today for right shoulder pain, right elbow pain, right hip pain after carrying 60 pounds of tile and falling through the floor. Patient did hit his head, denies loss of consciousness but admits to some light sensitivity, dizziness and nausea since the accident. TRAVEL OUTSIDE OF THE [place] IN LAST 30 DAYS: No - Related data Allergies/Adverse Reactions: cefaclor [From [facility]] Adverse Reaction (Verified 01/24/17 03:10) Urticaria Past Medical History - General Information source: Patient - Social History Smoking Status: Unknown if Ever Smoked Family History: Reviewed & Not Pertinent Patient has suicidal ideation: No Patient has homicidal ideation: No Renal/ Medical History: Denies: Hx Peritoneal Dialysis Musculoskeltal Medical History: Reports Hx Arthritis, Reports Hx Musculoskeletal Trauma Psychiatric Medical History: Reports: Hx Depression Past Surgical History: Reports: Other - plastic facial - Immunizations Immunizations up to date: Yes Hx Diphtheria, Pertussis, Tetanus Vaccination: Yes - unknown Review of Systems - Review of Systems Constitutional: No symptoms reported EENT: No symptoms reported Cardiovascular: No symptoms reported Respiratory: No symptoms reported Gastrointestinal: No symptoms reported Genitourinary: No symptoms reported Male Genitourinary: No symptoms reported Musculoskeletal: See HPI Skin: No symptoms reported Hematologic/Lymphatic: No symptoms reported Neurological/Psychological: No symptoms reported Physical Exam - Vital signs Vitals: Temp Pulse Resp BP Pulse Ox 99.3 F 77 20 114/80 100 09/12/17 19:43 09/12/17 19:43 09/12/17 19:43 09/12/17 19:43 09/12/17 19:43 - Notes Notes: PHYSICAL EXAMINATION: GENERAL: Uncomfortable appearing, but in no acute distress. HEAD: Atraumatic, normocephalic. EYES: Pupils equal round and reactive to light, extraocular movements intact, sclera anicteric, conjunctiva are normal. ENT: ear canals without erythema or foreign body, TMs pearly garcia with good bony landmarks, nares patent, oropharynx clear without exudates. Moist mucous membranes. NECK: Normal range of motion, supple without lymphadenopathy LUNGS: CTAB and equal. No wheezes rales or rhonchi. HEART: Regular rate and rhythm without murmurs ABDOMEN: Soft, no tenderness. No guarding, no rebound BACK: no vertebral tenderness, normal ROM GI/: no CVA tenderness EXTREMITIES: Normal range of motion, no pitting edema. No cyanosis. NEUROLOGICAL: Cranial nerves grossly intact. Normal sensory/motor exams. Good and equal strength bilaterally, Kernig and Brudzinski's signs negative, Romberg' s test normal, normal heel to cortes testing PSYCH: Normal mood, normal affect. SKIN: Warm, Dry, normal turgor, no rashes or lesions noted Course - Vital Signs Vital signs: Temp Pulse Resp BP Pulse Ox 99.3 F 77 20 114/80 100 09/12/17 19:43 09/12/17 19:43 09/12/17 19:43 09/12/17 19:43 09/12/17 19:43 Discharge - Discharge Clinical Impression: Hip pain, right Shoulder pain Qualifiers: Chronicity: acute Laterality: right Qualified Code(s): M25.511 - Pain in right shoulder Fall Qualifiers: Encounter type: initial encounter Qualified Code(s): W19.XXXA - Unspecified fall, initial encounter Head injury Qualifiers: Encounter type: initial encounter Qualified Code(s): S09.90XA - Unspecified injury of head, initial encounter Condition: Stable Disposition: HOME, SELF-CARE Additional Instructions: Return immediately for any new or worsening symptoms. Follow up with primary care provider, call tomorrow to make followup appointment. Prescriptions: Cyclobenzaprine HCl [Flexeril 10 mg Tablet] 10 mg PO TID PRN #15 tablet PRN Reason: Forms: Return to Work
--- NOTE | 2017-09-12 22:35 | RADIOLOGY REPORT (SQ) ---
EXAM DESCRIPTION: CT HEAD WITHOUT COMPLETED DATE/TIME: 09/12/2017 10:20 pm REASON FOR STUDY: head injury COMPARISON: None. TECHNIQUE: Axial images acquired through the brain without intravenous contrast. Images reviewed wi th bone, brain and subdural windows. Images stored on PACS. All CT scanners at this facility use dose modulation, iterative reconstruction, and/or weight based d osing when appropriate to reduce radiation dose to as low as reasonably achievable (ALARA). [facility]: Dose Right [facility]: CareDose [facility]: Dose Right [facility]: Teradose 4D [facility]: Lifestreams RADIATION DOSE: CT Rad equipment meets quality standard of care and radiation dose reduction techniq ues were employed. CTDIvol: 64.6 mGy. DLP: 1034 mGy-cm. mGy. LIMITATIONS: None. FINDINGS: VENTRICLES: Normal size and contour. CEREBRUM: No masses. No hemorrhage. No midline shift. No evidence for acute infarction. Normal gra y/white matter differentiation. No areas of low density in the white matter. CEREBELLUM: No masses. No hemorrhage. No alteration of density. No evidence for acute infarction. EXTRAAXIAL SPACES: No fluid collections. No masses. ORBITS AND GLOBE: No intra- or extraconal masses. Normal contour of globe without masses. CALVARIUM: No fracture. PARANASAL SINUSES: No fluid or mucosal thickening. SOFT TISSUES: No mass or hematoma. OTHER: No other significant finding. IMPRESSION: No acute intracranial findings. EVIDENCE OF ACUTE STROKE: NO. COMMENT: Quality ID # [id number]: Final reports with documentation of one or more dose reduction techniques (e.g., Automated exposure control, adjustment of the mA and/or kV according to patient size, use of iterative reconstruction technique) TECHNICAL DOCUMENTATION: JOB ID: [id number] [place]-72 2010 [employer]- All Rights Reserved
--- NOTE | 2017-09-12 22:37 | RADIOLOGY REPORT (SQ) ---
EXAM DESCRIPTION: L SPINE 2 VIEWS COMPLETED DATE/TIME: 09/12/2017 10:24 pm REASON FOR STUDY: fell through floor COMPARISON: 05/19/2017 NUMBER OF VIEWS: Two views. TECHNIQUE: AP and lateral radiographic images acquired of the lumbar spine. LIMITATIONS: None. FINDINGS: MINERALIZATION: Normal. SEGMENTATION: Normal. No transitional anatomy. ALIGNMENT: Normal. VERTEBRAE: Maintained height. No fracture or worrisome bone lesion. DISCS: Preserved height. No significant osteophytes or end plate irregularity. POSTERIOR ELEMENTS: Pedicles and facets are intact. No pars defect or posterior arch defects. HARDWARE: None in the spine. PARASPINAL SOFT TISSUES: Normal. PELVIS: Intact as visualized. No fractures or worrisome bone lesions. SI joints intact. OTHER: No other significant finding. IMPRESSION: No acute findings. TECHNICAL DOCUMENTATION: JOB ID: [id number] [place]-72 2010 [employer]- All Rights Reserved
--- NOTE | 2017-09-12 22:39 | RADIOLOGY REPORT (SQ) ---
EXAM DESCRIPTION: SHOULDER RIGHT 2 OR MORE VIEWS COMPLETED DATE/TIME: 09/12/2017 10:24 pm REASON FOR STUDY: fell through floor COMPARISON: None. NUMBER OF VIEWS: Three views. TECHNIQUE: Internal rotation, external rotation, and Y view images acquired of the right shoulder. LIMITATIONS: None. FINDINGS: MINERALIZATION: Normal. BONES: No acute fracture or dislocation. No worrisome bone lesions. JOINTS: No dislocation. VISUALIZED LUNGS AND RIBS: No pneumothorax. No rib fracture. SOFT TISSUES: No radiopaque foreign body. OTHER: No other significant finding. IMPRESSION: NO RADIOGRAPHIC EVIDENCE OF ACUTE INJURY. TECHNICAL DOCUMENTATION: JOB ID: [id number] [place]-72 2010 [employer]- All Rights Reserved
--- NOTE | 2017-09-12 22:41 | RADIOLOGY REPORT (SQ) ---
EXAM DESCRIPTION: HIP RIGHT AP/LATERAL COMPLETED DATE/TIME: 09/12/2017 10:24 pm REASON FOR STUDY: fell through floor COMPARISON: None. NUMBER OF VIEWS: Two views. TECHNIQUE: AP pelvis and additional frog-leg view of the right hip. LIMITATIONS: None. FINDINGS: MINERALIZATION: Normal. RIGHT HIP: No fracture or dislocation. No worrisome bone lesions. LEFT HIP: No fracture or dislocation. No worrisome bone lesions. PUBIS AND ISCHIUM: No fracture. PELVIS: No fracture. SACRUM: No fracture or dislocation. No worrisome bone lesions. LOWER LUMBAR SPINE: No fracture or dislocation. No worrisome bone lesions. No significant disc disea se. SOFT TISSUES: No findings. OTHER: No other significant finding. IMPRESSION: NO RADIOGRAPHIC EVIDENCE OF ACUTE INJURY. TECHNICAL DOCUMENTATION: JOB ID: [id number] [place]-72 2010 [employer]- All Rights Reserved
[2017-09-12] MEDS ORDERED: HYDROCODONE/ACETAMINOPHEN 5-325 MG (6 TAB/ER DISP) PO PRN (23:06)
[2017-09-12 23:42] VITALS: BP 113/68
== END 2017-09-12 23:42 | disposition home or self-care (01) ==
LOC: ER 19:13
DX: S09.90XA Unspecified injury of head, initial encounter (principal); M25.511 Pain in right shoulder; M25.521 Pain in right elbow; M25.551 Pain in right hip; W18.30XA Fall on same level, unspecified, initial encounter
CPT/HCPCS: 99284; 73502; 72100; 73030; 70450; S0119

== ENCOUNTER 2017-10-23 01:34 | Emergency (ER) | payer SELFPAY ==
[2017-10-23] MEDS ORDERED: LIDOCAINE 5% (700 MG) TRANSDERMAL ADH..PATCH TP ONE (04:16)
[2017-10-23] MEDS ORDERED: DIPHENHYDRAMINE HCL 50 MG/ML VIAL IV ONE (04:16)
[2017-10-23] MEDS ORDERED: NORMAL SALINE 1000 ML 1,000 ML IV ONE (04:16)
[2017-10-23] MEDS ORDERED: PROCHLORPERAZINE EDISYLATE INJ 10 MG/2 ML VIAL IV ONE (04:16)
[2017-10-23] MEDS ORDERED: KETOROLAC TROMETHAMINE INJ/PF 30 MG/1 ML SDV IV ONE (04:16)
--- NOTE | 2017-10-23 04:25 | ER Document Report ---
ED Headache - General Chief Complaint: Headache Stated Complaint: HEADACHE Time Seen by Provider: 10/23/17 03:45 Mode of Arrival: Ambulatory Information source: Patient Notes: Patient presents complaining of a flareup of his chronic neck pain. Patient states that he had a refrigerator fall on him 2 years ago and since then he will have flareups of neck pain sometimes several times each week. Patient denies any new neck injury. Patient reports pain is in location where he has had chronic neck pain in the past. Patient states that around 6 PM tonight he started to develop headache pain. Patient states pain started gradually and then worsened. Patient denies any nausea or vomiting. Patient does complain of occasional dizziness. Patient denies any IV drug use or chronic illness. TRAVEL OUTSIDE OF THE [place] IN LAST 30 DAYS: No - HPI Patient complains to provider of: Headache Onset: This evening Onset was: Gradual Timing: Still present Quality of pain: Achy, Pressure Pain Level: 4 Context: denies: Head injury Associated symptoms: Chills, Dizzy, Neck pain. 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 denies: Chest pain Gastrointestinal: No symptoms reported. denies: Nausea, Vomiting Genitourinary: No symptoms reported Male Genitourinary: No symptoms reported Musculoskeletal: Neck pain. denies: Back pain Skin: No symptoms reported. denies: Rash Hematologic/Lymphatic: No symptoms reported Neurological/Psychological: Headaches Physical Exam - Vital signs Vitals: Resp BP Pulse Ox 14 109/75 97 10/23/17 04:31 10/23/17 04:31 10/23/17 04:31 - General General appearance: Appears well, Alert In distress: None - HEENT Head: Normocephalic, Atraumatic Eyes: Normal Conjunctiva: Normal Extraocular movements intact: Yes Eyelashes: Normal Pupils: PERRL Ears: Normal External canal: Normal Nasal: Normal Mouth/Lips: Normal Mucous membranes: Normal Pharynx: Normal. No: Erythema, Tonsillar hypertrophy Neck: Supple. No: Brudzinski, Lymphadenopathy, Meningismus Notes: Patient with posterior cervical paraspinal tenderness, no midline tenderness, step-off or deformity - Respiratory Respiratory status: No respiratory distress Chest status: Nontender Breath sounds: Normal. No: Rales, Rhonchi, Stridor, Wheezing Chest palpation: Normal - Cardiovascular Rhythm: Regular Heart sounds: S1 appreciated, S2 appreciated Murmur: No - Back Back: Normal, Nontender. No: CVA tenderness, Vertebra tenderness - Extremities General upper extremity: Normal inspection, Normal strength General lower extremity: Normal inspection, Normal strength - Neurological Neuro grossly intact: Yes Cognition: Normal Jame Coma Scale Eye Opening: Spontaneous Jame Coma Scale Verbal: Oriented Jame Coma Scale Motor: Obeys Commands [place] Coma Scale Total: 15 - Psychological Associated symptoms: Normal affect, Normal mood - Skin Skin Temperature: Warm Skin Moisture: Dry Skin Color: Normal Course - Re-evaluation Re-evalutation: 10/23/17 05:24 Patient sleeping, arouses easily to voice. Patient reports headache pain as well as neck pain is resolved at this time. 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 The patient is neurologically intact. Given the extremely low risk of these diagnoses further testing and evaluation for these possibilities does not appear to be indicated at this time. The patient has been instructed to return if the symptoms worsen or change in any way. - Vital Signs Vital signs: Temp Pulse Resp BP Pulse Ox 98.7 F 16 109/73 97 10/23/17 06:10 10/23/17 06:01 10/23/17 06:01 10/23/17 06:01 - Diagnostic Test Radiology reviewed: Reports reviewed - Viewed CT scan report of head from 2017 Discharge - Discharge Clinical Impression: Chronic neck pain Headache Qualifiers: Headache type: unspecified Headache chronicity pattern: unspecified pattern Intractability: not intractable Qualified Code(s): R51 - Headache Condition: Stable Disposition: HOME, SELF-CARE Instructions: Intravenous Compazine for Headaches ([facility]), Use of Diphenhydramine , Headache ([facility]), Toradol Injection ([facility]) Additional Instructions: Return immediately for any new or worsening symptoms Followup with your primary care provider, call tomorrow to make a followup appointment Prescriptions: Cyclobenzaprine HCl [Flexeril 10 Mg Tablet] 10 mg PO TID #15 tablet Naproxen [Naprosyn 250 Nmg Tablet] 1 tab PO BID #14 tablet Forms: Smoking Cessation Education, Return to Work Referrals: [facility] [Provider Group] - Follow up as needed [facility] [Provider Group] - Follow up as needed
[2017-10-23 06:23] VITALS: BP 109/73
== END 2017-10-23 06:15 | disposition home or self-care (01) ==
LOC: ER 01:34
DX: G89.29 Other chronic pain (principal); M54.2 Cervicalgia; R51 Headache; R42 Dizziness and giddiness; R68.83 Chills (without fever); F17.200 Nicotine dependence, unspecified, uncomplicated
CPT/HCPCS: 99284; 96361; 96374; 96375; J1200; J1885; J0780; J7030

== ENCOUNTER 2017-12-23 14:18 | Emergency (ER) | payer SELFPAY ==
--- NOTE | 2017-12-23 16:08 | ER Document Report ---
ED General - General Chief Complaint: Hip Pain Stated Complaint: RIGHT HIP PAIN, LOW BACK PAIN Time Seen by Provider: 12/23/17 15:44 Mode of Arrival: Ambulatory Information source: Patient TRAVEL OUTSIDE OF THE [place] IN LAST 30 DAYS: No - HPI Notes: Patient is a 27-year-old white male presents to the emergency department with report of right posterior hip pain and lower back pain that the patient states that he has had since a previous injury with a fall several years ago. The patient has had a previous MRI approximately 2 years ago which did show significant disc deterioration and problems and he was at one point recommended for surgery and a fusion and a spinal cord stimulator for pain and other interventions but later was told that he may not need any interventions. The patient does not have the MRI with him which was done at an outpatient MRI Center. Patient reports pain is been pretty consistent for several years, and he had negative plain film x-rays of the lumbar spine and right hip and pelvis done 3 months ago. The patient reports continuous discomfort. He denies any incontinence he reports no abdominal pain or dysuria. He states the pain leads to discomfort which makes his leg go out from underneath him at times. 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 - Related Data Allergies/Adverse Reactions: cefaclor [From [facility]] Adverse Reaction (Verified 12/23/17 14:21) Urticaria Past Medical History - General Information source: Patient - Social History Smoking Status: Current Every Day Smoker Frequency of alcohol use: None Drug Abuse: None Lives with: Friend Family History: Reviewed & Not Pertinent Renal/ Medical History: Denies: Hx Peritoneal Dialysis Musculoskeltal Medical History: Reports Hx Arthritis, Reports Hx Musculoskeletal Trauma Psychiatric Medical History: Reports: Hx Depression Past Surgical History: Reports: Other - plastic facial - Immunizations Immunizations up to date: Yes Hx Diphtheria, Pertussis, Tetanus Vaccination: Yes - unknown Review of Systems - Review of Systems Notes: REVIEW OF SYSTEMS: CONSTITUTIONAL : Denies fever, chills, or sweats. Denies recent illness. EENT: Denies eye, ear, throat, or mouth pain or symptoms. Denies nasal or sinus congestion or discharge. Denies throat, tongue, or mouth swelling or difficulty swallowing. CARDIOVASCULAR: Denies chest pain. Denies palpitations or racing or irregular heart beat. Denies ankle edema. RESPIRATORY: Denies cough, cold, or chest congestion. Denies shortness of breath, difficulty breathing, or wheezing. GASTROINTESTINAL: Denies abdominal pain or distention. Denies nausea, vomiting , or diarrhea. Denies blood in vomitus, stools, or per rectum. Denies black, tarry stools. Denies constipation. GENITOURINARY: Denies difficulty urinating, painful urination, burning, frequency, blood in urine, or discharge. MUSCULOSKELETAL: Denies neck pain or stiffness. SKIN: Denies rash, lesions or sores. HEMATOLOGIC : Denies easy bruising or bleeding. LYMPHATIC: Denies swollen, enlarged glands. NEUROLOGICAL: Denies confusion or altered mental status. Denies passing out or loss of consciousness. Denies dizziness or lightheadedness. Denies headache. Denies =paralysis or loss of use of either side. Denies problems with speech. Denies seizures. Occasional numbness in the right lower extremity which patient has had for several years. PSYCHIATRIC: Denies anxiety or stress. Denies depression, suicidal ideation, or homicidal ideation. ALL OTHER SYSTEMS REVIEWED AND NEGATIVE. Dictation was performed using [employer] voice recognition software Physical Exam - Vital signs Vitals: Temp Pulse Resp BP Pulse Ox 99.0 F 63 16 119/65 96 12/23/17 14:35 12/23/17 14:35 12/23/17 14:35 12/23/17 14:35 12/23/17 14:35 - Notes Notes: PHYSICAL EXAMINATION: GENERAL: Well-appearing, well-nourished and in no acute distress. HEAD: Atraumatic, normocephalic. EYES: Pupils equal round and reactive to light, extraocular movements intact, sclera anicteric, conjunctiva are normal. ENT: Nares patent, oropharynx clear without exudates. Moist mucous membranes. NECK: Normal range of motion, supple without lymphadenopathy LUNGS: Breath sounds clear to auscultation bilaterally and equal. No wheezes rales or rhonchi. HEART: Regular rate and rhythm without murmurs ABDOMEN: Soft, nontender, nondistended abdomen. No guarding, no rebound. No masses appreciated. Musculoskeletal: Pain through the right lower paralumbar region and down the right leg and L4-L5 distribution. No bony deformity or crepitance or erythema noted. NEUROLOGICAL: Cranial nerves grossly intact. Normal speech, normal gait. Normal sensory exam. Patient has mild weakness in toe dorsiflexion and plantarflexion which patient states is chronic. No saddle anesthesia. Mildly antalgic gait. PSYCH: Normal mood, normal affect. SKIN: Warm, Dry, normal turgor, no rashes or lesions noted. Course - Re-evaluation Re-evalutation: 12/23/17 16:12 Patient was advised of the need for follow-up for these chronic complaints. His plain films are negative but he was told he needs his original MRI and may need repeat MRI to better ascertain the course of action. He is requested to follow-up with a local practitioner. Patient was told that his lumbar radiculopathy may be resulting in some neurologic complaints that need to be addressed and he needs to follow-up with local practitioner for a MRI study. 12/23/17 16:20 - Vital Signs Vital signs: Temp Pulse Resp BP Pulse Ox 99.0 F 63 16 119/65 96 12/23/17 14:35 12/23/17 14:35 12/23/17 14:35 12/23/17 14:35 12/23/17 14:35 Discharge - Discharge Clinical Impression: Lumbar radiculopathy Back strain Qualifiers: Encounter type: subsequent encounter Qualified Code(s): S39.012D - Strain of muscle, fascia and tendon of lower back, subsequent encounter Hip pain Qualifiers: Laterality: right Qualified Code(s): M25.551 - Pain in right hip Condition: Stable Disposition: HOME, SELF-CARE Instructions: Radiculopathy ([facility]), Low Back Pain ([facility]), Family Physicians / Practices Additional Instructions: Follow-up with local family practitioner and to bring the MRI results with you to guide their decision making. Limit the amount of time on your feet to no longer than 1 hour at a time as needed due to lumbar radiculopathy and back pain. Prescriptions: Ibuprofen [Motrin 600 mg Tablet] 600 mg PO Q8HP PRN #60 tablet PRN Reason: Cyclobenzaprine HCl [Flexeril 10 mg Tablet] 10 mg PO TIDP PRN #20 tablet PRN Reason: Prednisone [Deltasone 10 mg Tablet] 10 mg PO ASDIR PRN #21 tablet PRN Reason: Forms: Return to Work
[2017-12-23] MEDS ORDERED: IBUPROFEN 800 MG TABLET PO ONE (16:13)
[2017-12-23] MEDS ORDERED: PREDNISONE 20 MG TABLET PO ONE (16:14)
[2017-12-23 16:33] VITALS: BP 106/60
== END 2017-12-23 16:33 | disposition home or self-care (01) ==
LOC: ER 14:18
DX: M54.16 Radiculopathy, lumbar region (principal); M25.551 Pain in right hip; S39.012D Strain of muscle, fascia and tendon of lower back, subsequent encounter; W19.XXXD Unspecified fall, subsequent encounter
CPT/HCPCS: 99283; J7512

== ENCOUNTER 2018-01-19 16:23 | Emergency (ER) | payer OTHER ==
[2018-01-19] MEDS ORDERED: ACETAMINOPHEN 325 MG TABLET PO ONE (16:42)
[2018-01-19] MEDS ORDERED: IBUPROFEN 600 MG TABLET PO ONE (16:42)
--- NOTE | 2018-01-19 16:44 | ER Document Report ---
ED Medical Screen (RME) - General Chief Complaint: Testicular Pain Stated Complaint: TESTICLE PAIN Time Seen by Provider: 01/19/18 16:37 Notes: RAPID MEDICAL EVALUATION DISCLOSURE I have seen this patient as part of a Rapid Medical Evaluation and, if applicable, placed any initially appropriate orders. The patient will be seen and fully evaluated, including a full history and physical exam, by a provider ( in Main ED or Fast Track) when a room becomes available. 27-year-old male here with complaints of right testicular pain and swelling that started approximately 7 hours ago. He was lifting some heavy trash bags and noticed the pain. He has progressively worsened since onset. He is also had some dysuria but no hematuria frequency hesitancy. He did have some abdominal pain earlier but this has resolved. He denies any prior history of torsion or orchitis epididymitis. TRAVEL OUTSIDE OF THE [place] IN LAST 30 DAYS: No - Related Data Allergies/Adverse Reactions: cefaclor [From [facility]] Adverse Reaction (Verified 01/19/18 16:25) Urticaria Past Medical History Renal/ Medical History: Denies: Hx Peritoneal Dialysis Musculoskeltal Medical History: Reports Hx Arthritis, Reports Hx Musculoskeletal Trauma Psychiatric Medical History: Reports: Hx Depression Past Surgical History: Reports: Other - plastic facial - Immunizations Immunizations up to date: Yes Hx Diphtheria, Pertussis, Tetanus Vaccination: Yes - unknown
[2018-01-19 17:11] LABS: ABSOLUTE EOSINOPHILS # (AUTO) 0.1 10^3/uL (0.0-0.6); ABSOLUTE LYMPHOCYTES (AUTO) 2.6 10^3/uL (0.5-4.7); ABSOLUTE MONOCYTES (AUTO) 0.4 10^3/uL (0.1-1.4); ABSOLUTE NEUT (AUTO) 5.7 10^3/uL (1.7-8.2); BASOPHILS % (AUTO) 0.6 % (0-2); EOSINOPHILS % (AUTO) 1.5 % (0-6); HEMATOCRIT 46.4 % (37.9-51.0); HEMOGLOBIN 15.8 g/dL (13.5-17.0); LYMPHOCYTES % (AUTO) 29.6 % (13-45); MEAN CORPUSCULAR HEMOGLOBIN 29.4 pg (27.0-33.4); MEAN CORPUSCULAR HGB CONC 34.1 g/dL (32.0-36.0); MEAN CORPUSCULAR VOLUME 86 fl (80-97); MONOCYTES % (AUTO) 4.8 % (3-13); PLATELET COUNT 172 10^3/uL (150-450); RED BLOOD COUNT 5.38 10^6/uL (4.35-5.55); SEGMENTED NEUTROPHILS % (AUTO) 63.5 % (42-78); TOTAL CELLS COUNTED % (AUTO) 100 %; WHITE BLOOD COUNT 8.9 10^3/uL (4.0-10.5)
--- NOTE | 2018-01-19 17:21 | ER Document Report ---
ED General - General Chief Complaint: Testicular Pain Stated Complaint: TESTICLE PAIN Time Seen by Provider: 01/19/18 16:37 TRAVEL OUTSIDE OF THE [place] IN LAST 30 DAYS: No - HPI Notes: Patient is a 27-year-old male with a significant past medical history aside from chronic back pain who presents to the ED complaining of right testicular pain, intermittent nausea that began today. Patient states that he was lifting up some heavy bags at work when he first started noticing the pain. Patient states that the pain has been constant since then we came for an evaluation. The pain does not radiate. Patient states that he also has some burning with urination, but has not noticed any urethral discharge. He has not noticed any lumps or bumps in his groin. He has not noticed any rash, lesions, or ulcer. Denies any drug allergies. No other concerns or complaints at this time. Denies any headache, fever, URI, sore throat, chest pain, palpitations, syncope , cough, shortness of breath, wheeze, dyspnea, abdominal pain, vomiting/diarrhea , urinary retention, hematuria, loss of control of bowel or bladder, numbness/ tingling, saddle anesthesia, muscle paralysis/weakness, or rash. - Related Data Allergies/Adverse Reactions: cefaclor [From [facility]] Adverse Reaction (Verified 01/19/18 16:25) Urticaria Past Medical History - Social History Smoking Status: Current Every Day Smoker Chew tobacco use (# tins/day): No Drug Abuse: None Family History: Reviewed & Not Pertinent Patient has suicidal ideation: No Patient has homicidal ideation: No Renal/ Medical History: Denies: Hx Peritoneal Dialysis Musculoskeltal Medical History: Reports Hx Arthritis, Reports Hx Musculoskeletal Trauma Psychiatric Medical History: Reports: Hx Depression Past Surgical History: Reports: Other - plastic facial - Immunizations Immunizations up to date: Yes Hx Diphtheria, Pertussis, Tetanus Vaccination: Yes - unknown Review of Systems - Review of Systems -: Yes All other systems reviewed and negative Physical Exam - Notes Notes: PHYSICAL EXAMINATION: GENERAL: Well-appearing, well-nourished and in no acute distress. HEAD: Atraumatic, normocephalic. EYES: Pupils equal round and reactive to light, extraocular movements intact, sclera anicteric, conjunctiva are normal. ENT: Nares patent and without discharge. oropharynx clear without exudates. No tonsilar hypertrophy or erythema. Moist mucous membranes. NECK: Normal range of motion, supple without lymphadenopathy LUNGS: Breath sounds clear to auscultation bilaterally and equal. No wheezes rales or rhonchi. HEART: Regular rate and rhythm without murmurs, rubs, gallops. ABDOMEN: Soft, nontender, nondistended abdomen. No guarding, no rebound. No masses appreciated. Normal bowel sounds present. No CVA tenderness bilaterally. : + circum. No obvious hernia noted or lymphadenopathy. No urethral discharge or penile tenderness. + tenderness to the rt epididymal area, correlates with pain described. No transverse lie. Cremasteric intact b/l. No erythema, swelling, rash, ulceration, or lesions noted. Musculoskeletal: FROM to passive/active. Strength 5+/5. Extremities: No cyanosis, clubbing, or edema b/l. Peripheral pulses 2+. Capillary refill less than 3 seconds. NEUROLOGICAL: Normal speech, normal gait. Normal sensory, motor exams PSYCH: Normal mood, normal affect. SKIN: Warm, Dry, normal turgor, no rashes or lesions noted. Course - Re-evaluation Re-evalutation: 01/19/18 19:21 Patient is an afebrile, well-hydrated, 27-year-old male who presents to the ED with right epididymitis, with reproducible tenderness on exam. Vitals are acceptable. PE is otherwise unremarkable. Patient has no significant tachycardia, tachypnea, or hypoxia. CBC, CMP, urinalysis, scrotal ultrasound were unremarkable for any acute pathology. Patient is nontoxic-appearing. Patient was given Tylenol, Motrin, and Toradol. No other labs or imaging warranted at this time based on H&P. Low suspicion/risk for acute appendicitis , bowel obstruction, acute cholecystitis, perforated diverticulitis, incarcerated hernia, pancreatitis, perforated ulcer, peritonitis, sepsis, testicular torsion, nec fasc, or other systemic emergent condition at this time. Patient is aware that his condition can change from initial presentation and he needs to monitor symptoms closely and seek medical attention if any acute changes. Rx for naproxen. Conservative measures otherwise for symptoms. Recheck with PCM in 2-3 days. Schedule an appointment with urology for further evaluation and management. Return to the ED with any worsening/ concerning symptoms otherwise as reviewed in discharge. Patient is in agreement. Reviewed with Dr. Carlton who recommended the pain management and f/u with Uro. - Laboratory Result Diagrams: 01/19/18 16:51 01/19/18 16:51 Laboratory results interpreted by me: 01/19/18 01/19/18 16:51 17:25 Chloride 108 H Urine Ketones TRACE H Urine Urobilinogen 2.0 H Discharge - Discharge Clinical Impression: Epididymal pain Condition: Stable Disposition: HOME, SELF-CARE Additional Instructions: Rest, Ice/cool compress Tylenol/ibuprofen as needed Moist heat may help F/u with your PCP in 2-3 days for a recheck Call the urologist to schedule an appointment for further evaluation and management Return to the ED with any worsening symptoms and/or development of fever, headache, chest pain, palpitations, syncope, shortness of breath, trouble breathing, abdominal pain, n/v/d, muscle weakness/paralysis, numbness/tingling, swelling, redness, or other worsening symptoms that are concerning to you. Prescriptions: Naproxen 500 mg PO BID PRN #30 tablet PRN Reason: Tramadol HCl 50 mg PO BID PRN #10 tablet PRN Reason: Forms: Smoking Cessation Education, Return to Work Referrals: MAHNAZ ELAINE II, MD [[facility]] - 01/23/18
[2018-01-19 17:37] LABS: ALANINE AMINOTRANSFERASE 41 U/L (21-72); ALBUMIN 4.5 g/dL (3.5-5.0); ALKALINE PHOSPHATASE 56 U/L (38-126); ANION GAP 12 (5-19); ASPARTATE AMINO TRANSFERASE 32 U/L (17-59); BILIRUBIN,DIRECT 0.2 mg/dL (0.0-0.4); BILIRUBIN,TOTAL 0.6 mg/dL (0.2-1.3); BLOOD UREA NITROGEN 11 mg/dL (7-20); CALCIUM 9.7 mg/dL (8.4-10.2); CARBON DIOXIDE 24 mmol/L (22-30); CHLORIDE 108 mmol/L (98-107); GLUCOSE 90 mg/dL (75-110); POTASSIUM 3.9 mmol/L (3.6-5.0); SODIUM 143.7 mmol/L (137-145)
[2018-01-19 17:47] LABS: APPEARANCE,URINE CLEAR; BILIRUBIN,URINE NEGATIVE (NEGATIVE); COLOR,URINE YELLOW; GLUCOSE, URINE NEGATIVE (NEGATIVE); KETONES,URINE TRACE mg/dL (NEGATIVE); LEUKOCYTE ESTERASE,URINE NEGATIVE (NEGATIVE); NITRITE,URINE NEGATIVE (NEGATIVE); PROTEIN,URINE NEGATIVE (NEGATIVE); URINE SPECIFIC GRAVITY 1.024
[2018-01-19] MEDS ORDERED: KETOROLAC TROMETHAMINE INJ/PF 30 MG/1 ML SDV IM ONE (18:44)
--- NOTE | 2018-01-19 19:14 | RADIOLOGY REPORT (SQ) ---
EXAM DESCRIPTION: U/S SCROTUM W/DOPPLER COMPLETED DATE/TIME: 01/19/2018 6:51 pm REASON FOR STUDY: R test pain/swelling; torsion orchitis epididymiti COMPARISON: None. TECHNIQUE: Static and realtime villalpando scale imaging of the scrotum and testes. Selected color Doppler and spectral images recorded to document blood flow. LIMITATIONS: None. FINDINGS: RIGHT: TESTICLE: Normal size. Normal echotexture. Normal blood flow. No mass. EPIDIDYMIS: Normal. HYDROCELE OR VARICOCELE: Small hydrocele and varicocele. HERNIA OR EXTRA-TESTICULAR MASS: No. OTHER: No other significant finding. LEFT: TESTICLE: Normal size. Normal echotexture. Normal blood flow. No mass. EPIDIDYMIS: Normal. HYDROCELE OR VARICOCELE: Small hydrocele and varicocele. HERNIA OR EXTRA-TESTICULAR MASS: No. OTHER: No other significant finding. IMPRESSION: NO EVIDENCE OF TESTICULAR MASS OR TORSION. Small bilateral hydrocele and varicocele. TECHNICAL DOCUMENTATION: JOB ID: [id number]- All Rights Reserved Reading location - IP/workstation name: [email or web address]
== END 2018-01-19 19:43 | disposition home or self-care (01) ==
LOC: ER 16:23
DX: N50.811 Right testicular pain (principal); G89.29 Other chronic pain; M54.9 Dorsalgia, unspecified; R11.0 Nausea; F17.200 Nicotine dependence, unspecified, uncomplicated
CPT/HCPCS: 99284; 96372; 36415; 85025; 80053; 81001; 76870; 93976; J1885

== ENCOUNTER 2018-04-29 12:00 | Emergency (ER) | payer OTHER ==
[2018-04-29 12:16] VITALS: BP 114/66
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
[2018-04-29] MEDS ORDERED: IPRATROPIUM/ALBUTEROL 0.5-2.5 MG/3 ML AMPUL NEB ONE (12:22)
--- NOTE | 2018-04-29 13:24 | RADIOLOGY REPORT (SQ) ---
EXAM DESCRIPTION: CHEST 2 VIEWS COMPLETED DATE/TIME: 04/29/2018 1:15 pm REASON FOR STUDY: cough 3 weeks COMPARISON: 08/10/2016. EXAM PARAMETERS: NUMBER OF VIEWS: two views TECHNIQUE: Digital Frontal and Lateral radiographic views of the chest acquired. RADIATION DOSE: NA LIMITATIONS: none FINDINGS: LUNGS AND PLEURA: No opacities, masses or pneumothorax. No pleural effusion. MEDIASTINUM AND HILAR STRUCTURES: No masses or contour abnormalities. HEART AND VASCULAR STRUCTURES: Heart normal size. No evidence for failure. BONES: No acute findings. HARDWARE: None in the chest. OTHER: No other significant finding. IMPRESSION: NO ACUTE RADIOGRAPHIC FINDING IN THE CHEST. TECHNICAL DOCUMENTATION: JOB ID: [id number] [employer]- All Rights Reserved Reading location - IP/workstation name: [email or web address]
[2018-04-29] MEDS ORDERED: PREDNISONE 20 MG TABLET PO ONE (13:32)
== END 2018-04-29 13:46 | disposition home or self-care (01) ==
LOC: ER 12:00
DX: J45.909 Unspecified asthma, uncomplicated (principal); R05 Cough; B35.8 Other dermatophytoses; F17.200 Nicotine dependence, unspecified, uncomplicated
CPT/HCPCS: 94640; 99283; 71046; J7512; J7620

== ENCOUNTER 2018-05-03 00:05 | Emergency (ER) | payer OTHER ==
[2018-05-03 00:25] VITALS: BP 115/78
[2018-05-03] MEDS ORDERED: FLUCONAZOLE 100 MG TABLET PO ONE (03:31)
--- NOTE | 2018-05-03 03:36 | ER Document Report ---
ED General - General Chief Complaint: Rash Stated Complaint: POSSIBLE RASH Time Seen by Provider: 05/03/18 02:50 TRAVEL OUTSIDE OF THE [place] IN LAST 30 DAYS: No - HPI Patient complains to provider of: Rash to the left thumb Notes: Patient coming into the ER for evaluation of rash to the left thumb first joint of the thumb has a red excoriated area patient states he does have a hard piece of skin fell off just now started bleeding states ongoing for a week was seen diagnosed with fungal infection patient has been putting antifungal cream on the wound however states that leg is getting worse. Patient denies any fever chills nausea vomiting denies any exposure to poison matt other chemicals. Resting comfortably my evaluation. - Related Data Allergies/Adverse Reactions: cefaclor [From Microdermis] Adverse Reaction (Verified 04/29/18 12:04) Urticaria Past Medical History - Social History Smoking Status: Current Every Day Smoker Frequency of alcohol use: Occasional Drug Abuse: None Family History: Reviewed & Not Pertinent Patient has suicidal ideation: No Patient has homicidal ideation: No Pulmonary Medical History: Reports: Hx Asthma Renal/ Medical History: Denies: Hx Peritoneal Dialysis Musculoskeletal Medical History: Reports Hx Arthritis, Reports Hx Musculoskeletal Trauma Psychiatric Medical History: Reports: Hx Depression Past Surgical History: Reports: Other - plastic facial - Immunizations Immunizations up to date: Yes Hx Diphtheria, Pertussis, Tetanus Vaccination: Yes - unknown Review of Systems - Review of Systems Constitutional: No symptoms reported EENT: No symptoms reported Cardiovascular: No symptoms reported Respiratory: No symptoms reported Gastrointestinal: No symptoms reported Genitourinary: No symptoms reported Male Genitourinary: No symptoms reported Musculoskeletal: No symptoms reported Skin: Rash Hematologic/Lymphatic: No symptoms reported Neurological/Psychological: No symptoms reported -: Yes All other systems reviewed and negative Physical Exam - Vital signs Vitals: Temp Pulse Resp BP Pulse Ox 98.6 F 60 18 115/78 97 05/03/18 00:22 05/03/18 00:22 05/03/18 00:05/03/18 00:05/03/18 00:22 - General General appearance: Appears well In distress: None - HEENT Head: Normocephalic, Atraumatic - Respiratory Respiratory status: No respiratory distress - Extremities General upper extremity: Normal inspection General lower extremity: Normal inspection, Normal weight bearing - Neurological Neuro grossly intact: Yes - Psychological Associated symptoms: Normal affect, Normal mood - Skin Skin Color: Other - Red area on the base of the thumb with some desquamation of the skin around approximately the size of a quarter on the dorsal side there is some slight blistering and weeping of the wound. Underneath a Tubbs lamp the edges of the wound fluoresce Course - Re-evaluation Re-evalutation: 05/03/18 05:52 With the edges of the painful resting considering fungal infection patient was encouraged to continue his current therapy. - Vital Signs Vital signs: Temp Pulse Resp BP Pulse Ox 98.6 F 60 18 115/78 97 05/03/18 00:22 05/03/18 00:22 05/03/18 00:22 05/03/18 00:22 05/03/18 00:22 Discharge - Discharge Clinical Impression: tinea left hand Condition: Good Additional Instructions: Examination today underneath the tubbs lamp shows signs consistent with a fungal infection on your thumb. We recommend keeping the wound clean and dry continue to apply antifungal cream 3 times a day. Return to ER symptoms worsen follow-up with your primary care physician. Forms: Return to Work
== END 2018-05-03 03:39 | disposition home or self-care (01) ==
LOC: ER 00:05
DX: B35.9 Dermatophytosis, unspecified (principal); F17.200 Nicotine dependence, unspecified, uncomplicated
CPT/HCPCS: 99282

== ENCOUNTER 2018-06-16 11:27 | Emergency (ER) | payer OTHER ==
[2018-06-16 11:46] VITALS: BP 121/74
--- NOTE | 2018-06-16 11:56 | ER Document Report ---
HPI - HPI Patient complains to provider of: cold symptoms Pain Level: 4 Context: Patient is a 27-year-old male presenting to the emergency department, planning of cough, congestion, intermittent headache for the last 3 days. Patient denies any nausea or vomiting, denies diarrhea. Patient states his is also in the emergency room for same symptoms. Patient is denying fever stating his T-max was 100.0. Past medical history: Herniated lumbar disc, degenerative disc disease Medications: None Allergies: Cefaclor Patient admits to cigarette smoking, denies EtOH use, denies illicit drug use. - CONSTITUTIONAL Constitutional: REPORTS: Fever, Chills - EENT EENT: REPORTS: Sore Throat - RESPIRATORY Respiratory: REPORTS: Coughing Past Medical History - General Information source: Patient - Social History Smoking Status: Current Every Day Smoker Chew tobacco use (# tins/day): No Frequency of alcohol use: None Lives with: Family Family History: Reviewed & Not Pertinent Patient has suicidal ideation: No Patient has homicidal ideation: No Pulmonary Medical History: Reports: Hx Asthma Renal/ Medical History: Denies: Hx Peritoneal Dialysis Musculoskeletal Medical History: Reports Hx Arthritis, Reports Hx Musculoskeletal Trauma Psychiatric Medical History: Reports: Hx Depression Past Surgical History: Reports: Other - plastic facial - Immunizations Immunizations up to date: Yes Hx Diphtheria, Pertussis, Tetanus Vaccination: Yes - unknown Vertical Provider Document - CONSTITUTIONAL Agree With Documented VS: Yes Notes: GENERAL: Alert, interacts well. No acute distress. HEAD: Normocephalic, atraumatic. No frontal or maxillary sinus tenderness EYES: Pupils equal, round, and reactive to light. Extraocular movements intact. ENT: Oral mucosa moist, tongue midline. Nares patent, swollen turbinates bilaterally, TM's intact nonerythematous nonbulging. Pharynx within normal limits, no erythema or exudate noted. NECK: Full range of motion. Supple. Trachea midline. No lymphadenopathy appreciated LUNGS: Clear to auscultation bilaterally, no wheezes, rales, or rhonchi. No respiratory distress. HEART: Regular rate and rhythm. No murmur ABDOMEN: Soft, non-tender. Non-distended. Bowel sounds present in all 4 quadrants. EXTREMITIES: Moves all 4 extremities spontaneously. No edema, normal radial and dorsalis pedis pulses bilaterally. No cyanosis. BACK: no cervical, thoracic, lumbar midline tenderness. No saddle anesthesia, normal distal neurovascular exam. NEUROLOGICAL: Alert and oriented x3. Normal speech. cranial nerves II through XII grossly intact PSYCH: Normal affect, normal mood. SKIN: Warm, dry, normal turgor. No rashes or lesions noted. - INFECTION CONTROL TRAVEL OUTSIDE OF THE [place] IN LAST 30 DAYS: No Course - Re-evaluation Re-evalutation: 06/16/18 11:54 Discussed diagnosis of upper respiratory infection with patient at bedside. Also discussed cessation of smoking. - Vital Signs Vital signs: Temp Pulse Resp BP Pulse Ox 98.5 F 86 16 121/74 96 06/16/18 11:43 06/16/18 11:43 06/16/18 11:43 06/16/18 11:43 06/16/18 11:43 Discharge - Discharge Clinical Impression: Upper respiratory infection Qualifiers: URI type: unspecified viral URI Qualified Code(s): J06.9 - Acute upper respiratory infection, unspecified Condition: Stable Disposition: HOME, SELF-CARE Instructions: Upper Respiratory Illness ([facility]), Viral Syndrome ([facility]) Additional Instructions: You have been seen and treated in the emergency department for an upper respiratory infection. Unfortunately these infections are typically caused by viruses. Viruses do not respond to antibiotics. You should take medications as prescribed, continue taking [id number] Tylenol and Motrin. Please also refrain from cigarette smoking. Please follow-up with your primary care provider in the next 24-48 hours. Please return to the emergency room for any other concerning symptoms. Prescriptions: Benzonatate [Tessalon Perles 100 mg Capsule] 100 mg PO Q8HP PRN #40 capsule PRN Reason: Mometasone Furoate [Nasonex] 1 spray NS Q12 #1 spray.pump Forms: Smoking Cessation Education
== END 2018-06-16 12:06 | disposition home or self-care (01) ==
LOC: ER 11:27
DX: J06.9 Acute upper respiratory infection, unspecified (principal); B97.89 Other viral agents as the cause of diseases classified elsewhere; R05 Cough; R51 Headache; F17.210 Nicotine dependence, cigarettes, uncomplicated; J02.9 Acute pharyngitis, unspecified; J45.909 Unspecified asthma, uncomplicated; Z88.1 Allergy status to other antibiotic agents
CPT/HCPCS: 99283

== ENCOUNTER 2018-09-16 03:47 | Emergency (ER) | payer OTHER ==
[2018-09-16] MEDS ORDERED: DEXAMETHASONE SOD PHOS INJ 10 MG/1 ML VIAL IM ONE (05:30)
[2018-09-16] MEDS ORDERED: HYDROCODONE/ACETAMINOPHEN 5-325 MG (6 TAB/ER DISP) PO PRN (05:31)
--- NOTE | 2018-09-16 05:34 | ER Document Report ---
HPI - HPI Patient complains to provider of: lower back pain Time Seen by Provider: 09/16/18 05:19 Pain Level: 5 Context: Patient is a 27-year-old male that comes emergency department for chief complaint of pain in his lower back. He has a history of back injury at work, has an MRI approximately 2 years ago that showed herniation at L2 through L4, he has intermittent sciatica-like symptoms since that time. 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 He denies numbness, he states he has difficulty walking from the pain but he denies weakness, he denies inability to urinate, he denies fecal incontinence. He denies ever using IV drugs, he denies fever. He denies new injury. - CONSTITUTIONAL Constitutional: DENIES: Fever, Chills - EENT EENT: DENIES: Sore Throat, Ear Pain, Eye problems - NEURO Neurology: DENIES: Headache, Weakness, Vision blurred, Dizzinesss / Vertigo - CARDIOVASCULAR Cardiovascular: DENIES: Chest pain - RESPIRATORY Respiratory: DENIES: Trouble Breathing, Coughing - GASTROINTESTINAL Gastrointestinal: DENIES: Abdominal Pain, Black / Bloody Stools - URINARY Urinary: DENIES: Dysuria, Urgency, Frequency - MUSCULOSKELETAL Musculoskeletal: DENIES: Extremity pain Past Medical History - General Information source: Patient - Social History Smoking Status: Never Smoker Chew tobacco use (# tins/day): No Drug Abuse: None Lives with: Family Family History: Reviewed & Not Pertinent Patient has suicidal ideation: No Patient has homicidal ideation: No Pulmonary Medical History: Reports: Hx Asthma Renal/ Medical History: Denies: Hx Peritoneal Dialysis Musculoskeletal Medical History: Reports Hx Arthritis, Reports Hx Musculoskeletal Trauma Psychiatric Medical History: Reports: Hx Depression Past Surgical History: Reports: Other - plastic facial - Immunizations Immunizations up to date: Yes Hx Diphtheria, Pertussis, Tetanus Vaccination: Yes - unknown Vertical Provider Document - CONSTITUTIONAL General Appearance: WD/WN, Mild Distress - Pain with movement, patient suddenly becomes rigid and appears to have a spasm, Thin - INFECTION CONTROL TRAVEL OUTSIDE OF THE [place] IN LAST 30 DAYS: No - HEENT HEENT: Atraumatic, Normal ENT Exam, Normocephalic - NECK Neck: Normal Inspection - RESPIRATORY Respiratory: Breath Sounds Normal, No Respiratory Distress - CARDIOVASCULAR Cardiovascular: Regular Rate, Regular Rhythm - GI/ABDOMEN Gastrointestinal: Abdomen Soft, Abdomen Non-Tender - BACK Back: negative: Normal Inspection - No midline tenderness noted. There is definite tenderness over the left paralumbar musculature, positive straight leg raise on the left, however range of motion is intact even though he does have some pain with walking on the left leg. Normal distal neurovascular exam. Remaining back exam is unremarkable. No saddle anesthesia. - MUSCULOSKELETAL/EXTREMETIES Musculoskeletal/Extremeties: MAEW, FROM, Non-Tender - NEURO Level of Consciousness: Awake, Alert, Appropriate Motor/Sensory: No Motor Deficit, No Sensory Deficit - DERM Integumentary: Warm, Dry, No Rash Course - Re-evaluation Re-evalutation: Based on his reported history, evaluation, and lack of risk factors or neurological symptoms I do suspect this is a flareup of his chronic back pain. Appears to be sciatica with muscle spasms. Because patient does have obvious discomfort with spasms, he was provided with diazepam so he could take it and sleep. Provided with work-release. Given dose of dexamethasone here. Discussed return precautions in detail. Patient states understanding and agreement with plan. Discharge - Discharge Clinical Impression: Muscle spasm Lower back pain Qualifiers: Chronicity: acute Back pain laterality: left Sciatica presence: with sciatica Sciatica laterality: sciatica of left side Qualified Code(s): M54.42 - Lumbago with sciatica, left side Sciatica Qualifiers: Laterality: left Qualified Code(s): M54.32 - Sciatica, left side Condition: Stable Disposition: HOME, SELF-CARE Additional Instructions: Your evaluation is most consistent with sciatica and paralumbar musculature spasm. Apply heat to the area, take [id number] anti-inflammatory such as naproxen/ibuprofen, do gentle stretches, rest. Take the prescribed medication as muscle relaxer. Follow-up with primary care for additional evaluation and management. Return if you worsen including inability to urinate, inability to control your bowels, numbness, fever, or any other concerning or worsening symptoms. Prescriptions: Diazepam [Valium 5 mg Tablet] 1 - 2 tab PO TID PRN #12 tablet PRN Reason: Forms: Return to Work
[2018-09-16 06:07] VITALS: BP 120/64
== END 2018-09-16 06:02 | disposition home or self-care (01) ==
LOC: ER 03:47
DX: M54.42 Lumbago with sciatica, left side (principal); M62.838 Other muscle spasm
CPT/HCPCS: 99283; 96372; J1100

== ENCOUNTER 2018-10-04 21:37 | Emergency (ER) | payer OTHER ==
[2018-10-04] MEDS ORDERED: ACETAMINOPHEN 325 MG TABLET PO ONE (22:20)
[2018-10-04 23:51] LABS: A TYPE INFLUENZA AG POSITIVE (NEGATIVE); B INFLUENZA AG NEGATIVE (NEGATIVE)
--- NOTE | 2018-10-05 00:13 | ER Document Report ---
ED Flu Like - General Chief Complaint: Flu Symptoms Stated Complaint: FLU LIKE SYMPTOMS Time Seen by Provider: 10/05/18 00:12 Mode of Arrival: Ambulatory Information source: Patient Notes: HISTORY OF PRESENT ILLNESS: Patient is a 27-year-old male with a past medical history of asthma who presents with 2 days of fever and cough. Location: Chest Onset: Gradual Provocation: Coughing Quality: Tightness Radiation: None Severity: Moderate Timing: Constant Known sick contacts: Yes Associated symptoms: Sinus congestion, headache, sore throat, cough Home treatment: None REVIEW OF SYSTEMS: CONSTITUTIONAL : Positive for fever and chills. Denies recent illness. EENT: Denies eye, ear, throat, or mouth pain or symptoms. Denies nasal or sinus congestion. CARDIOVASCULAR: Denies chest pain. RESPIRATORY: Positive for cough and congestion. Denies shortness of breath, difficulty breathing, or wheezing. GASTROINTESTINAL: Denies abdominal pain. Denies nausea, vomiting, or diarrhea. Denies constipation. GENITOURINARY: Denies difficulty urinating, painful urination, burning, frequency, or blood in urine. FEMALE GENITOURINARY: Denies vaginal bleeding, abnormal or irregular periods. MUSCULOSKELETAL: Denies body aches. Denies neck or back pain or joint pain or swelling. SKIN: Denies rash or skin lesions. HEMATOLOGIC : Denies easy bruising or bleeding. LYMPHATIC: Denies swollen, enlarged glands. NEUROLOGICAL: Denies altered mental status or loss of consciousness. Denies headache. Denies weakness or paralysis or loss of use of either side. Denies problems with gait or speech. Denies sensory or motor loss. PSYCHIATRIC: Denies anxiety or stress or depression. All other systems reviewed and negative. PHYSICAL EXAMINATION: GENERAL: Tired-appearing, well-nourished and in no acute distress. HEAD: Atraumatic, normocephalic. No scalp deformity, depression, or crepitance. EYES: Pupils are 3 mm and equal/round/reactive to light, extraocular movements intact, sclera anicteric, conjunctiva are normal. ENT: Nares patent bilaterally, oropharynx clear without exudates or palatal petechia. Moist mucous membranes. No tonsil hypertrophy. NECK: Normal range of motion, supple without lymphadenopathy. LUNGS: Breath sounds present, equal, and clear to auscultation bilaterally. No wheezes, rales, or rhonchi. HEART: Regular rate and rhythm without murmurs, rubs, or gallops. 2+ peripheral pulses. Normal capillary refill. ABDOMEN: Soft, nontender, nondistended. Normoactive bowel sounds. No guarding, no rebound. No masses appreciated. BACK: Normal contour, no midline tenderness. Rectal exam deferred. PELVC: Deferred. EXTREMITIES: Normal range of motion, no pitting or edema. No cyanosis. NEUROLOGICAL: No focal neurological deficits. Moves all extremities spontan eously and on command. PSYCH: Normal mood, normal affect. No suicidal thoughts/ideations. No homocidal thoughts/ideations. No hallucinations. SKIN: Warm, dry, normal turgor, no rashes or lesions noted. ASSESSMENT AND PLAN: This patient is a 27-year-old male who presents with viral syndrome with a positive influenza screen. 1. Will give Decadron and discharged home with return precautions and follow- up. 2. Patient voices agreeing with and understanding the plan. TRAVEL OUTSIDE OF THE [place] IN LAST 30 DAYS: No - Related Data Allergies/Adverse Reactions: cefaclor [From [facility]] Adverse Reaction (Verified 06/16/18 11:36) Urticaria Past Medical History - General Information source: Patient - Social History Smoking Status: Current Every Day Smoker Chew tobacco use (# tins/day): No Frequency of alcohol use: Rare Drug Abuse: None Lives with: Family Family History: Reviewed & Not Pertinent Patient has suicidal ideation: No Patient has homicidal ideation: No - Medical History Medical History: Negative - Past Medical History Cardiac Medical History: Reports: None Pulmonary Medical History: Reports: Hx Asthma EENT Medical History: Reports: None Neurological Medical History: Reports: None Endocrine Medical History: Reports: None Renal/ Medical History: Reports: None. Denies: Hx Peritoneal Dialysis Malignancy Medical History: Reports None GI Medical History: Reports: None Musculoskeletal Medical History: Reports Hx Arthritis, Reports Hx Musculoskeletal Trauma Skin Medical History: Reports None Psychiatric Medical History: Reports: Hx Depression Traumatic Medical History: Reports: None Infectious Medical History: Reports: None Surgical Hx: Negative Past Surgical History: Reports: None, Other - plastic facial - Immunizations Immunizations up to date: Yes Hx Diphtheria, Pertussis, Tetanus Vaccination: Yes - unknown Physical Exam - Vital signs Vitals: Temp Pulse Resp BP Pulse Ox 103.0 F H 105 H 25 H 127/75 H 99 10/04/18 22:16 10/04/18 22:16 10/04/18 22:16 10/04/18 22:16 10/04/18 22:16 Course - Vital Signs Vital signs: Temp Pulse Resp BP Pulse Ox 101.5 F H 87 20 99/52 L 96 10/05/18 02:33 10/05/18 02:33 10/05/18 02:33 10/05/18 02:33 10/05/18 02:33 Discharge - Discharge Clinical Impression: Influenza due to influenza virus, type A, human Condition: Good Disposition: HOME, SELF-CARE Instructions: Influenza ([facility]) [id number] Additional Instructions: You have been evaluated in the Emergency Department for fever and cough that is related to influenza. While here, you were given medications and it is now safe to be discharged home. Please follow-up with your primary physician as instructed in 1 week to be rechecked. Return to the Emergency Department if you experience difficulty breathing, high fevers uncontrolled by medications, chest pain, or any other concerning symptoms. Prescriptions: Codeine Phosphate/Guaifenesin [Cheratussin AC Syrup] 10 ml PO Q6HP PRN #240 liquid PRN Reason: Congestion Oseltamivir Phosphate [Tamiflu 75 mg Capsule] 75 mg PO BID #10 capsule Oseltamivir Phosphate [Tamiflu 75 mg Capsule] 75 mg PO BID #10 capsule Forms: Parent Work Note, Return to Work Print Language: Tajik
[2018-10-05] MEDS ORDERED: DEXAMETHASONE SOD PHOS INJ 10 MG/1 ML VIAL IM ONE (01:03)
[2018-10-05 02:45] VITALS: BP 99/52
== END 2018-10-05 02:48 | disposition home or self-care (01) ==
LOC: ER 21:37
DX: J10.1 Influenza due to other identified influenza virus with other respiratory manifestations (principal); R50.9 Fever, unspecified; R05 Cough; R09.81 Nasal congestion; R51 Headache; J45.909 Unspecified asthma, uncomplicated; F17.200 Nicotine dependence, unspecified, uncomplicated
CPT/HCPCS: 99283; 96372; 87804; J1100

== ENCOUNTER 2018-10-23 01:33 | Emergency (ER) | payer OTHER ==
[2018-10-23] MEDS ORDERED: ONDANSETRON 4 MG TAB.RAPDIS PO ONE (04:11)
[2018-10-23] MEDS ORDERED: NORMAL SALINE 1000 ML 1,000 ML IV ONE ×2 (04:12→08:22)
--- NOTE | 2018-10-23 04:13 | ER Document Report ---
ED Medical Screen (RME) - General Chief Complaint: Nausea/Vomiting/Diarrhea Stated Complaint: VOMITING Time Seen by Provider: 10/23/18 04:11 Notes: 27-year-old male with chief complaint of persistent vomiting and diarrhea today. [place] feverish as well. No particular area of abdominal pain. Reports ingestion of possibly partially cooked chicken and steak a couple days ago. No blood in vomit or stool. No obvious sick contacts, no recent antibiotics. TRAVEL OUTSIDE OF THE [place] IN LAST 30 DAYS: No - Related Data Allergies/Adverse Reactions: cefaclor [From Ceclor] Adverse Reaction (Verified 06/16/18 11:36) Urticaria Past Medical History Pulmonary Medical History: Reports: Hx Asthma Renal/ Medical History: Denies: Hx Peritoneal Dialysis Musculoskeltal Medical History: Reports Hx Arthritis, Reports Hx Musculoskeletal Trauma Psychiatric Medical History: Reports: Hx Depression Past Surgical History: Reports: Other - plastic facial - Immunizations Immunizations up to date: Yes Hx Diphtheria, Pertussis, Tetanus Vaccination: Yes - unknown Physical Exam - General General appearance: Other - Tired and slightly pale - Abdominal Tenderness: Tender - Mild generalized tenderness, nonspecific, no guarding Course - Re-evaluation Re-evalutation: I have greeted and performed a rapid initial assessment of this patient. A comprehensive ED assessment and evaluation of the patient, analysis of test results and completion of the medical decision making process will be conducted by additional ED providers.
[2018-10-23 04:54] LABS: ALANINE AMINOTRANSFERASE 24 U/L (21-72); ALBUMIN 4.4 g/dL (3.5-5.0); ALKALINE PHOSPHATASE 56 U/L (38-126); ANION GAP 11 (5-19); ASPARTATE AMINO TRANSFERASE 21 U/L (17-59); BILIRUBIN,DIRECT 0.2 mg/dL (0.0-0.4); BILIRUBIN,TOTAL 1.2 mg/dL (0.2-1.3); BLOOD UREA NITROGEN 17 mg/dL (7-20); CALCIUM 9.6 mg/dL (8.4-10.2); CARBON DIOXIDE 24 mmol/L (22-30); CHLORIDE 105 mmol/L (98-107); GLUCOSE 98 mg/dL (75-110); SODIUM 139.9 mmol/L (137-145)
[2018-10-23] MEDS ORDERED: KETOROLAC TROMETHAMINE INJ/PF 30 MG/1 ML SDV IV ONE (07:00)
--- NOTE | 2018-10-23 08:08 | ER Document Report ---
ED General - General Chief Complaint: Nausea/Vomiting/Diarrhea Stated Complaint: VOMITING Time Seen by Provider: 10/23/18 04:11 Notes: 27-year-old male with chief complaint of persistent vomiting and diarrhea today. [place] feverish as well. No particular area of abdominal pain. Reports ingestion of possibly partially cooked chicken and steak on Tuesday night. No blood in vomit or stool. Patient has had about 8-10 episodes of diarrhea, last episode at 230 this morning, and 8/10 episodes of vomiting. Patient states he had a T-max of 101 oral prior to coming in. Patient complains of sore throat secondary to vomiting, no shortness of breath or chest pain. Patient has no other complaints. No obvious sick contacts, no recent antibiotics. TRAVEL OUTSIDE OF THE [place] IN LAST 30 DAYS: No - Related Data Allergies/Adverse Reactions: [facility] Adverse Reaction (Verified 10/23/18 08:32) Urticaria Past Medical History - Social History Smoking Status: Current Some Day Smoker Chew tobacco use (# tins/day): No Frequency of alcohol use: Occasional Drug Abuse: None Family History: Reviewed & Not Pertinent Patient has suicidal ideation: No Patient has homicidal ideation: No Pulmonary Medical History: Reports: Hx Asthma Renal/ Medical History: Denies: Hx Peritoneal Dialysis Musculoskeletal Medical History: Reports Hx Arthritis, Reports Hx Musculoskeletal Trauma Psychiatric Medical History: Reports: Hx Depression Past Surgical History: Reports: Other - plastic facial - Immunizations Immunizations up to date: Yes Hx Diphtheria, Pertussis, Tetanus Vaccination: Yes - unknown Review of Systems - Review of Systems Constitutional: See HPI EENT: See HPI Cardiovascular: See HPI Respiratory: See HPI Gastrointestinal: See HPI Genitourinary: No symptoms reported Male Genitourinary: No symptoms reported Musculoskeletal: No symptoms reported Skin: No symptoms reported Hematologic/Lymphatic: No symptoms reported Neurological/Psychological: No symptoms reported Physical Exam - Vital signs Vitals: Temp Pulse BP Pulse Ox 98.6 F 94 101/66 100 10/23/18 01:39 10/23/18 01:39 10/23/18 01:39 10/23/18 01:39 - Notes Notes: PHYSICAL EXAMINATION: Reviewed vital signs and charting by RN GENERAL: Alert, interacts well. No acute distress. HEAD: Normocephalic, atraumatic. EYES: Pupils equal, round, and reactive to light. Extraocular movements intact. ENT: Oral mucosa moist, tongue midline. NECK: Full range of motion. Supple. Trachea midline. LUNGS: Clear to auscultation bilaterally, no wheezes, rales, or rhonchi. No respiratory distress. HEART: Regular rate and rhythm. No murmur ABDOMEN: soft, tender to palpation left lower quadrant. Non-distended. Bowel sounds present in all 4 quadrants. no McBurney's point tenderness, no Villasenor sign. EXTREMITIES: Moves all 4 extremities spontaneously. No edema, No cyanosis. PSYCH: Normal affect, normal mood. SKIN: Warm, dry, normal turgor. No rashes or lesions noted. Course - Re-evaluation Re-evalutation: 10/23/18 08:38 Appears well-hydrated. Received 1 L normal saline in triage. Patient is unable to provide a stool sample. He is agreeable to performing a rectal exam to get a stool sample. I ordered a second liter of fluids. Patient denies nausea currently. 10/23/18 13:04 No WBC seen on stool sample, C. difficile negative. Patient states he is feeling much better after second liter. At this time I did empirically treat patient with azithromycin 1 g p.o. in the event of a bacterial infection. Patient vital signs are within normal limits. Patient is stable for discharge. - Vital Signs Vital signs: Temp Pulse Resp BP Pulse Ox 98.5 F 70 16 97/57 L 99 10/23/18 11:21 10/23/18 11:21 10/23/18 11:21 10/23/18 11:21 10/23/18 11:21 - Laboratory Result Diagrams: 10/23/18 04:27 Discharge - Discharge Clinical Impression: Gastroenteritis Nausea & vomiting Qualifiers: Vomiting type: unspecified Vomiting Intractability: non-intractable Qualified Code(s): R11.2 - Nausea with vomiting, unspecified Condition: Good Disposition: HOME, SELF-CARE Instructions: Antinausea Medication ([facility]), Diarrhea, Nonspecific ([facility]), Gastroenteritis (adult) ([facility]), Intravenous (IV) Fluids ([facility]) Additional Instructions: You are seen in the emergency department this morning for nausea, vomiting. The stool studies were negative for Clostridium difficile and no white blood cells were seen indicating that it is most likely a viral process. Regardless, you were given a azithromycin empirically which could help with your diarrhea. Also, it is okay to start taking Imodium that you can get [id number]. Just follow directions on the box or bottle. You received 2 L of IV fluids to rehydrate you. If you continue to have persistent, intractable nausea or vomiting, you become dizzy or lightheaded and pass out, develop severe abdominal pain, or have any other concerns please merely return to the emergency depar tment. Forms: Return to Work
[2018-10-23] MEDS ORDERED: ONDANSETRON HCL INJ/PF 4 MG/2 ML SDV IV ONE (09:28)
[2018-10-23] MEDS ORDERED: ACETAMINOPHEN 325 MG TABLET PO ONE (09:39)
[2018-10-23] MEDS ORDERED: AZITHROMYCIN 250 MG TABLET PO ONE (09:39)
[2018-10-23] MEDS ORDERED: ONDANSETRON ODT 4 MG TAB (6 TAB/ER DISP) PO PRN (13:07)
[2018-10-23 14:04] VITALS: BP 101/62
== END 2018-10-23 14:05 | disposition home or self-care (01) ==
LOC: ER 01:33
DX: K52.9 Noninfective gastroenteritis and colitis, unspecified (principal); R11.2 Nausea with vomiting, unspecified; J02.9 Acute pharyngitis, unspecified; F17.200 Nicotine dependence, unspecified, uncomplicated; J45.909 Unspecified asthma, uncomplicated
CPT/HCPCS: 99284; 96361; 96374; 96375; 36415; 87045; 89055; 87205; 80053; 87493; S0119; J1885; J2405; J7030

== ENCOUNTER 2019-01-11 00:01 | Emergency (ER) | payer SELFPAY ==
[2019-01-11] MEDS ORDERED: ONDANSETRON HCL INJ/PF 4 MG/2 ML SDV IV ONE (01:09)
[2019-01-11] MEDS ORDERED: NORMAL SALINE 1000 ML 1,000 ML IV ONE (01:09)
[2019-01-11] MEDS ORDERED: HYDROMORPHONE HCL INJ/PF 2 MG/ML AMPULE IV ONE (01:09)
[2019-01-11] MEDS ORDERED: DEXAMETHASONE SOD PHOS INJ 10 MG/1 ML VIAL IV ONE (01:10)
--- NOTE | 2019-01-11 01:14 | ER Document Report ---
ED General - General Chief Complaint: Low Back Pain Stated Complaint: MID TO LOWER BACK PAIN/HIP/GROIN PAIN Time Seen by Provider: 01/11/19 00:53 Mode of Arrival: Ambulatory Information source: Patient Notes: This is a 28-year-old man with a history of a back injury with chronic back issues (status post injections, physical therapy, radiofrequency ablation) who presents to the emergency room with acute low back pain. 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 He states that it felt like his legs were tightening up on him and started having severe pain. Patient states he was lying down when he could feel that it was starting to tighten up on him and then he just started having a lot of pain. TRAVEL OUTSIDE OF THE [place] IN LAST 30 DAYS: No - HPI Onset: Just prior to arrival Onset/Duration: Sudden Quality of pain: Dull Severity: Moderate Pain Level: 4 Associated symptoms: denies: Chest pain, Fever, Shortness of breath Exacerbated by: Movement Relieved by: Remaining still Similar symptoms previously: Yes Recently seen / treated by doctor: Yes - Related Data Allergies/Adverse Reactions: cefaclor [From Ceclor] Adverse Reaction (Verified 01/11/19 00:14) Urticaria Past Medical History - General Information source: Patient - Social History Smoking Status: Current Every Day Smoker Cigarette use (# per day): Yes - Half a pack per day Chew tobacco use (# tins/day): No Frequency of alcohol use: Rare Drug Abuse: None Lives with: Spouse/Significant other Family History: Reviewed & Not Pertinent Patient has suicidal ideation: No Patient has homicidal ideation: No - Past Medical History Cardiac Medical History: Reports: None Pulmonary Medical History: Reports: Hx Asthma Renal/ Medical History: Denies: Hx Peritoneal Dialysis Musculoskeletal Medical History: Reports Hx Arthritis, Reports Hx Musculoskeletal Trauma Psychiatric Medical History: Reports: Hx Depression Past Surgical History: Reports: Other - plastic facial - Immunizations Immunizations up to date: Yes Hx Diphtheria, Pertussis, Tetanus Vaccination: Yes - unknown Review of Systems - Review of Systems Constitutional: denies: Chills, Fever EENT: No symptoms reported Cardiovascular: No symptoms reported Respiratory: No symptoms reported Gastrointestinal: No symptoms reported Genitourinary: No symptoms reported Male Genitourinary: No symptoms reported Musculoskeletal: See HPI Skin: No symptoms reported Hematologic/Lymphatic: No symptoms reported Neurological/Psychological: Other - His main complaints are pain with movement. He is able to move the lower legs. He does have sensation peer. denies: Weakness, Loss of power, Paralysis, Lost consciousness Physical Exam - Vital signs Vitals: Temp Pulse Resp BP Pulse Ox 98.3 F 82 18 118/78 96 01/11/19 00:19 01/11/19 00:19 01/11/19 00:19 01/11/19 00:01/11/19 00:19 Notes: Physical exam: GENERAL: Patient is alert and oriented x3 HEAD: Atraumatic, normocephalic. EYES: Pupils equal round and reactive to light, extraocular movements intact, sclera anicteric, conjunctiva are normal. ENT: TMs normal, nares patent, oropharynx clear without exudates. Moist mucous membranes. NECK: Normal range of motion, supple without obvious mass or JVD. LUNGS: Breath sounds clear to auscultation bilaterally and equal. No wheezes rales or rhonchi. HEART: Regular rate and rhythm without murmurs, rubs or gallops. Back: Cervical and thoracic spine are nontender. Lumbar spine has paraspinal tenderness. There is no bony deformities. There is no bony step-offs. There is no erythema of the skin. There is no bogginess. He does have some tenderness over the SI joints. He does complain of crepitation of range of motion of the right hip. He is able to move the right lower extremity. ABDOMEN: Soft, normoactive bowel sounds. No tenderness to palpation. No guarding, no rebound. No masses appreciated. EXTREMITIES: Normal range of motion, no pitting or edema. No clubbing or cyanosis. NEUROLOGICAL: Cranial nerves II through XII grossly intact. Normal speech, moving all extremities. PSYCH: Normal mood, normal affect. SKIN: Warm, Dry, normal turgor, no rashes or lesions noted. Course - Vital Signs Vital signs: Temp Pulse Resp BP Pulse Ox 98.3 F 82 18 118/78 96 01/11/19 00:19 01/11/19 00:19 01/11/19 00:19 01/11/19 00:19 01/11/19 00:19 - Laboratory Result Diagrams: 01/11/19 01:40 01/11/19 01:40 Laboratory results interpreted by me: 01/11/19 01:40 Chloride 109 H ALT 16 L Alkaline Phosphatase 34 L - Diagnostic Test Radiology reviewed: Image reviewed, Reports reviewed - CT of the lumbar spine shows no acute process. Discharge - Discharge Clinical Impression: Acute low back pain Condition: Stable Disposition: HOME, SELF-CARE Additional Instructions: Recommendations: As we discussed I want you to take it easy over the next several days, trying to stretch out your back. Take the pain medicine as prescribed. Take the steroids as prescribed. Take the Voltaren gel as described. For self exercises at home to try and get pain-free: Try reading Practical Solutions for Back Pain Relief by Brenda Devine. Return to the emergency room for worsening pain, inability to urinate, numbness in the groin around the buttocks, weakness Also, follow-up with the back surgeon: Dr.Alex Burton [facility] [address] [place] [address] When you call, asked him if they have a [place] office. Prescriptions: Diclofenac Sodium [Voltaren] 2 gm TP BID #1 gel..gm. Hydromorphone HCl [Dilaudid 2 Mg Tablet] 2 mg PO Q6H PRN #20 tablet PRN Reason: for pain Methylprednisolone [Medrol 4 mg Dosepack 21 Tab/Pack] 4 mg PO ASDIR PRN #21 tab.ds.pk PRN Reason: Forms: Return to Work
[2019-01-11 01:55] LABS: ABSOLUTE EOSINOPHILS # (AUTO) 0.2 10^3/uL (0.0-0.6); ABSOLUTE LYMPHOCYTES (AUTO) 2.8 10^3/uL (0.5-4.7); ABSOLUTE MONOCYTES (AUTO) 0.6 10^3/uL (0.1-1.4); ABSOLUTE NEUT (AUTO) 4.1 10^3/uL (1.7-8.2); BASOPHILS % (AUTO) 0.4 % (0-2); EOSINOPHILS % (AUTO) 3.1 % (0-6); HEMATOCRIT 45.3 % (37.9-51.0); HEMOGLOBIN 15.4 g/dL (13.5-17.0); LYMPHOCYTES % (AUTO) 35.8 % (13-45); MEAN CORPUSCULAR HEMOGLOBIN 29.8 pg (27.0-33.4); MEAN CORPUSCULAR HGB CONC 33.9 g/dL (32.0-36.0); MEAN CORPUSCULAR VOLUME 88 fl (80-97); MONOCYTES % (AUTO) 7.4 % (3-13); PLATELET COUNT 157 10^3/uL (150-450); RED BLOOD COUNT 5.15 10^6/uL (4.35-5.55); RED CELL DISTRIBUTION WIDTH 13.1 % (11.5-14.0); SEGMENTED NEUTROPHILS % (AUTO) 53.3 % (42-78); TOTAL CELLS COUNTED % (AUTO) 100 %; WHITE BLOOD COUNT 7.8 10^3/uL (4.0-10.5)
[2019-01-11 02:07] LABS: ALANINE AMINOTRANSFERASE 16 U/L (21-72); ALKALINE PHOSPHATASE 34 U/L (38-126); ANION GAP 9 (5-19); ASPARTATE AMINO TRANSFERASE 21 U/L (17-59); BILIRUBIN,DIRECT 0.2 mg/dL (0.0-0.4); BILIRUBIN,TOTAL 0.5 mg/dL (0.2-1.3); BLOOD UREA NITROGEN 15 mg/dL (7-20); CALCIUM 9.7 mg/dL (8.4-10.2); CARBON DIOXIDE 27 mmol/L (22-30); CHLORIDE 109 mmol/L (98-107); GLUCOSE 105 mg/dL (75-110); POTASSIUM 3.9 mmol/L (3.6-5.0); SODIUM 144.7 mmol/L (137-145); TOTAL PROTEIN 6.4 g/dL (6.3-8.2)
--- NOTE | 2019-01-11 02:18 | RADIOLOGY REPORT (SQ) ---
EXAM DESCRIPTION: CT LUMBAR SPINE WITHOUT IV CONTRAST COMPLETED DATE/TME: 01/11/2019 01:10 CLINICAL HISTORY: 28 years, Male, low back pain COMPARISON: None. TECHNIQUE: Axial CT images of the lumbar spine were obtained without contrast. DLP 589 Images stored on PACS. All CT scanners at this facility use dose modulation, iterative reconstruction, and/or weight based dosing when appropriate to reduce radiation dose to as low as reasonably achievable (ALARA). [facility]: Dose Right [facility]: CareDose [facility]: Dose Right [facility]: Teradose 4D [facility]: Foremost LIMITATIONS: None. FINDINGS: The alignment of the lumbar spine is satisfactory. There is no acute fracture or subluxation. The vertebral heights and disc spaces are maintained. The neural foramen and spinal canal appear widely patent. The paraspinal soft tissues are unremarkable. IMPRESSION: No acute fracture or subluxation involving the lumbar spine TECHNICAL DOCUMENTATION: Quality ID # [id number]: Final reports with documentation of one or more dose reduction techniques (e.g., Automated exposure control, adjustment of the mA and/or kV according to patient size, use of iterative reconstruction technique) copyright 2010 [employer]- All Rights Reserved
[2019-01-11 02:49] VITALS: BP 109/77
== END 2019-01-11 02:54 | disposition home or self-care (01) ==
LOC: ER 00:01
DX: M54.5 Low back pain (principal); G89.29 Other chronic pain; F17.210 Nicotine dependence, cigarettes, uncomplicated
CPT/HCPCS: 99284; 96361; 96374; 96375; 36415; 85025; 80053; 72131; J1170; J2405; J7030; J1100

== ENCOUNTER 2019-02-12 22:24 | Emergency (ER) | payer OTHER ==
[2019-02-13] MEDS ORDERED: IBUPROFEN 600 MG TABLET PO ONE (01:52)
[2019-02-13] MEDS ORDERED: CYCLOBENZAPRINE HCL 10 MG TABLET PO ONE (01:52)
[2019-02-13] MEDS ORDERED: ALPRAZOLAM 0.5 MG TABLET PO ONE (01:52)
--- NOTE | 2019-02-13 01:55 | ER Document Report ---
ED General - General Chief Complaint: Pain All Over Stated Complaint: PAIN Time Seen by Provider: 02/13/19 00:53 Mode of Arrival: Ambulatory Information source: Patient TRAVEL OUTSIDE OF THE [place] IN LAST 30 DAYS: No - HPI Notes: Patient presents with report of chronic lower back pain and degenerative disc disease and right hip pain presents with report of myalgias and pharyngitis for the last 2 to 3 days. The patient also reports some chest pain that he had at rest, although he thinks this was more anxiety related. He denies any exertional chest pain. He reports no radiation of the chest pain. He denies any skin rash. He does report low-grade fevers for the last 2 to 3 days. No neck stiffness. No constipation or dysuria. The patient reports minimal diarrhea nonbloody. - Related Data Allergies/Adverse Reactions: cefaclor [From Ceclor] Adverse Reaction (Verified 02/12/19 22:27) Urticaria Past Medical History - General Information source: Patient - Social History Smoking Status: Current Every Day Smoker Frequency of alcohol use: None Drug Abuse: None Lives with: Friend - Thank you very much Family History: Reviewed & Not Pertinent Patient has suicidal ideation: No Patient has homicidal ideation: No Pulmonary Medical History: Reports: Hx Asthma Renal/ Medical History: Denies: Hx Peritoneal Dialysis Musculoskeletal Medical History: Reports Hx Arthritis, Reports Hx Musculoskeletal Trauma Psychiatric Medical History: Reports: Hx Depression Past Surgical History: Reports: Other - plastic facial - Immunizations Immunizations up to date: Yes Hx Diphtheria, Pertussis, Tetanus Vaccination: Yes - unknown Review of Systems - Review of Systems -: Yes All other systems reviewed and negative Physical Exam - Vital signs Vitals: Temp Pulse Resp BP Pulse Ox 98.7 F 84 18 139/81 H 96 02/12/19 22:29 02/12/19 22:29 02/12/19 22:29 02/12/19 22:29 02/12/19 22:29 - Notes Notes: PHYSICAL EXAMINATION: GENERAL: Well-appearing, well-nourished and in no acute distress. HEAD: Atraumatic, normocephalic. EYES: Pupils equal round and reactive to light, extraocular movements intact, sclera anicteric, conjunctiva are normal. ENT: Nares patent, oropharynx with mild erythema and bilateral exudates. Moist mucous membranes. No abscess. NECK: Normal range of motion, supple with scant anterior lymphadenopathy LUNGS: Breath sounds clear to auscultation bilaterally and equal. No wheezes rales or rhonchi. HEART: Regular rate and rhythm without murmurs ABDOMEN: Soft, nontender, nondistended abdomen. No guarding, no rebound. No masses appreciated. No hepatosplenomegaly. Musculoskeletal: Normal range of motion, no pitting or edema. No cyanosis. Patient has pain through the lower lumbar spine and right hip region. No erythema or crepitance or bony deformity. No CVA tenderness. Distally, the patient has good sensation and capillary refill and pulses. NEUROLOGICAL: Cranial nerves grossly intact. Normal speech, normal gait. Normal sensory, motor exams PSYCH: Normal mood, normal affect. SKIN: Warm, Dry, normal turgor, no rashes or lesions noted. Course - Re-evaluation Re-evalutation: 02/13/19 03:32 X-rays negative for pneumonia, pneumothorax, degenerative change of the hips. Lab studies showed no significant abnormality besides a positive strep test. No clinical suggestion for cardiac ischemia or acute GA or pulmonary embolus. 02/13/19 03:33 Patient was given a shot of Bicillin. He was advised to follow-up with spinal surgeon specialist to been referred to in the past to discuss whether he needs a repeat MRI or needs to proceed to surgery. He has a MRI performed 2 years ago but does not have access to this. 02/13/19 03:33 - Vital Signs Vital signs: Temp Pulse Resp BP Pulse Ox 98.3 F 63 20 107/72 100 02/13/19 02:34 02/13/19 02:34 02/13/19 02:34 02/13/19 02:34 02/13/19 02:34 - Laboratory Result Diagrams: 02/13/19 01:39 02/13/19 01:39 Laboratory results interpreted by me: 02/13/19 01:39 WBC 14.5 H Absolute Neutrophils 10.4 H - EKG Interpretation by Tn EKG shows normal: Sinus rhythm Rate: Bradycardia Additional EKG results interpreted by me: 02/13/19 01:53 EKG as interpreted by pr showed sinus rhythm with mild bradycardia heart rate of 57. There is no gross evidence for acute GA or ischemia noted. There is no old EKG available for comparison. Discharge - Discharge Clinical Impression: Strep pharyngitis Chronic back pain Qualifiers: Back pain location: low back pain Back pain laterality: unspecified Sciatica presence: with sciatica Sciatica laterality: sciatica of right side Qualified Code(s): M54.41 - Lumbago with sciatica, right side Hip pain Qualifiers: Laterality: right Qualified Code(s): M25.551 - Pain in right hip Fever Qualifiers: Fever type: unspecified Qualified Code(s): R50.9 - Fever, unspecified Condition: Stable Disposition: HOME, SELF-CARE Instructions: Chronic Back Pain ([facility]), Family Physicians / Practices, Fever ([facility]), Strep Throat ([facility]) Additional Instructions: Drink plenty of fluids. Take ibuprofen as needed for pain and fever. Prescriptions: Ibuprofen [Ibu] 600 mg PO Q8HP PRN #30 tablet PRN Reason: Cyclobenzaprine HCl [Flexeril 10 mg Tablet] 10 mg PO TIDP PRN #30 tab PRN Reason: Forms: Return to Work
--- NOTE | 2019-02-13 02:00 | RADIOLOGY REPORT (SQ) ---
CLINICAL HISTORY: chest pain COMPARISON: August 10, 2016. TECHNIQUE: XR CHEST 2 VIEWS 02/13/2019 1:17 AM CDT FINDINGS: Cardiac silhouette is normal in size. Lungs are clear without consolidation, atelectasis, mass or edema. There is no pleural effusion. There is no pneumothorax. There are no acute osseous findings. IMPRESSION: Clear lungs.
--- NOTE | 2019-02-13 02:05 | RADIOLOGY REPORT (SQ) ---
EXAM: X-ray pelvis 1-2 views CLINICAL DATA: 28-year-old male with right hip pain, atraumatic TECHNICAL DATA: A single AP x-ray view of the pelvis was performed on 02/13/2019 at 1:57 AM. COMPARISONS: None FINDINGS: There is no evidence of fracture or dislocation. There is no significant arthritis or degenerative change. No focal lytic or sclerotic bone lesions are seen. Bone mineralization is normal. No focal soft tissue abnormalities are identified. IMPRESSION: No evidence of acute osseous injury involving the pelvis or hips.
[2019-02-13 02:08] LABS: ABSOLUTE EOSINOPHILS # (AUTO) 0.1 10^3/uL (0.0-0.6); ABSOLUTE LYMPHOCYTES (AUTO) 2.9 10^3/uL (0.5-4.7); ABSOLUTE NEUT (AUTO) 10.4 10^3/uL (1.7-8.2); BASOPHILS % (AUTO) 0.3 % (0-2); EOSINOPHILS % (AUTO) 0.9 % (0-6); HEMATOCRIT 43.4 % (37.9-51.0); HEMOGLOBIN 14.8 g/dL (13.5-17.0); LYMPHOCYTES % (AUTO) 20.2 % (13-45); MEAN CORPUSCULAR HEMOGLOBIN 29.6 pg (27.0-33.4); MEAN CORPUSCULAR HGB CONC 34.2 g/dL (32.0-36.0); MEAN CORPUSCULAR VOLUME 87 fl (80-97); MONOCYTES % (AUTO) 6.6 % (3-13); PLATELET COUNT 159 10^3/uL (150-450); RED BLOOD COUNT 5.01 10^6/uL (4.35-5.55); RED CELL DISTRIBUTION WIDTH 12.9 % (11.5-14.0); TOTAL CELLS COUNTED % (AUTO) 100 %; WHITE BLOOD COUNT 14.5 10^3/uL (4.0-10.5)
[2019-02-13 02:20] LABS: ALANINE AMINOTRANSFERASE 26 U/L (21-72); ALBUMIN 3.9 g/dL (3.5-5.0); ALKALINE PHOSPHATASE 48 U/L (38-126); ANION GAP 7 (5-19); ASPARTATE AMINO TRANSFERASE 22 U/L (17-59); BILIRUBIN,DIRECT 0.2 mg/dL (0.0-0.4); BILIRUBIN,TOTAL 0.4 mg/dL (0.2-1.3); BLOOD UREA NITROGEN 10 mg/dL (7-20); CALCIUM 9.2 mg/dL (8.4-10.2); CARBON DIOXIDE 27 mmol/L (22-30); CHLORIDE 107 mmol/L (98-107); GLUCOSE 99 mg/dL (75-110); POTASSIUM 3.7 mmol/L (3.6-5.0); SODIUM 141.2 mmol/L (137-145); TOTAL PROTEIN 6.3 g/dL (6.3-8.2)
[2019-02-13 02:37] VITALS: BP 107/72
[2019-02-13 02:37] LABS: APPEARANCE,URINE CLEAR; BILIRUBIN,URINE NEGATIVE (NEGATIVE); COLOR,URINE STRAW; GLUCOSE, URINE NEGATIVE (NEGATIVE); KETONES,URINE NEGATIVE (NEGATIVE); LEUKOCYTE ESTERASE,URINE NEGATIVE (NEGATIVE); NITRITE,URINE NEGATIVE (NEGATIVE); PROTEIN,URINE NEGATIVE (NEGATIVE); UROBILINOGEN,URINE NEGATIVE mg/dL (<2.0)
[2019-02-13 02:38] LABS: URINE SPECIFIC GRAVITY 1.006
[2019-02-13] MEDS ORDERED: PENICILLIN G BENZATHINE 1.2 MILLION UNIT/2 ML DISP.SYRIN IM ONE (02:40)
[2019-02-13 02:59] LABS: URINE AMPHETAMINES SCREEN NEGATIVE; URINE BARBITURATES SCREEN NEGATIVE; URINE BENZODIAZEPINES SCREEN NEGATIVE; URINE COCAINE SCREEN NEGATIVE; URINE MARIJUANA (THC) SCREEN NEGATIVE; URINE METHADONE SCREEN NEGATIVE; URINE PHENCYCLIDINE SCREEN NEGATIVE
--- NOTE | 2019-02-13 11:21 | EKG REPORT ---
SEVERITY:- NORMAL ECG - SINUS RHYTHM : Confirmed by: Alfreda Hatfield MD 13-Feb-2019 11:21:27
== END 2019-02-13 04:00 | disposition home or self-care (01) ==
LOC: ER 22:24
DX: J02.0 Streptococcal pharyngitis (principal); M79.10 Myalgia, unspecified site; R07.9 Chest pain, unspecified; M54.41 Lumbago with sciatica, right side; G89.29 Other chronic pain; M25.551 Pain in right hip; F17.200 Nicotine dependence, unspecified, uncomplicated; J45.909 Unspecified asthma, uncomplicated; R00.1 Bradycardia, unspecified; R50.9 Fever, unspecified
CPT/HCPCS: 93005; 99285; 96374; 36415; 87880; 83735; 85025; 80053; 81001; 80307; 71046; 72170; 93010; J0561

== ENCOUNTER 2019-03-03 16:22 | Emergency (ER) | payer OTHER ==
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
[2019-03-03 17:30] LABS: ABSOLUTE BASOPHILS # (AUTO) 0.1 10^3/uL (0.0-0.2); ABSOLUTE EOSINOPHILS # (AUTO) 0.2 10^3/uL (0.0-0.6); ABSOLUTE LYMPHOCYTES (AUTO) 2.9 10^3/uL (0.5-4.7); ABSOLUTE MONOCYTES (AUTO) 0.5 10^3/uL (0.1-1.4); ABSOLUTE NEUT (AUTO) 5.1 10^3/uL (1.7-8.2); BASOPHILS % (AUTO) 0.7 % (0-2); EOSINOPHILS % (AUTO) 2.7 % (0-6); HEMATOCRIT 48.8 % (37.9-51.0); HEMOGLOBIN 16.6 g/dL (13.5-17.0); LYMPHOCYTES % (AUTO) 32.7 % (13-45); MEAN CORPUSCULAR HEMOGLOBIN 29.7 pg (27.0-33.4); MEAN CORPUSCULAR HGB CONC 33.9 g/dL (32.0-36.0); MEAN CORPUSCULAR VOLUME 88 fl (80-97); MONOCYTES % (AUTO) 5.7 % (3-13); PLATELET COUNT 218 10^3/uL (150-450); RED BLOOD COUNT 5.58 10^6/uL (4.35-5.55); RED CELL DISTRIBUTION WIDTH 13.6 % (11.5-14.0); SEGMENTED NEUTROPHILS % (AUTO) 58.2 % (42-78); TOTAL CELLS COUNTED % (AUTO) 100 %; WHITE BLOOD COUNT 8.8 10^3/uL (4.0-10.5)
[2019-03-03 17:45] LABS: ALANINE AMINOTRANSFERASE 26 U/L (21-72); ALBUMIN 4.1 g/dL (3.5-5.0); ALKALINE PHOSPHATASE 32 U/L (38-126); ANION GAP 7 (5-19); ASPARTATE AMINO TRANSFERASE 31 U/L (17-59); BILIRUBIN,DIRECT 0.2 mg/dL (0.0-0.4); BLOOD UREA NITROGEN 16 mg/dL (7-20); CALCIUM 8.9 mg/dL (8.4-10.2); CARBON DIOXIDE 27 mmol/L (22-30); CHLORIDE 105 mmol/L (98-107); GLUCOSE 89 mg/dL (75-110); POTASSIUM 4.9 mmol/L (3.6-5.0); TOTAL PROTEIN 6.5 g/dL (6.3-8.2)
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
[2019-03-03] MEDS ORDERED: DIPHENHYDRAMINE HCL 50 MG/ML VIAL IV ONE (18:30)
[2019-03-03] MEDS ORDERED: NORMAL SALINE 1000 ML 1,000 ML IV ONE (18:30)
[2019-03-03] MEDS ORDERED: KETOROLAC TROMETHAMINE INJ/PF 30 MG/1 ML SDV IV ONE (18:31)
[2019-03-03] MEDS ORDERED: METOCLOPRAMIDE HCL INJ/PF 10 MG/2 ML SDV IV ONE (18:31)
[2019-03-03] MEDS ORDERED: ONDANSETRON ODT 4 MG TAB (6 TAB/ER DISP) PO PRN (19:03)
[2019-03-03 21:13] VITALS: BP 101/67
== END 2019-03-03 21:13 | disposition home or self-care (01) ==
LOC: ER 16:22
DX: S06.0X0A Concussion without loss of consciousness, initial encounter (principal); R51 Headache; H53.8 Other visual disturbances; R42 Dizziness and giddiness; H53.149 Visual discomfort, unspecified; R11.0 Nausea; R63.0 Anorexia; W50.0XXA Accidental hit or strike by another person, initial encounter; Y93.89 Activity, other specified; Y92.59 Other trade areas as the place of occurrence of the external cause; Y99.0 Civilian activity done for income or pay; J45.909 Unspecified asthma, uncomplicated
CPT/HCPCS: 99284; 96361; 96374; 96375; 36415; 85025; 80053; 70450; J1200; J1885; J2765; J7030

== ENCOUNTER 2019-03-09 20:16 | Emergency (ER) | payer OTHER ==
[2019-03-09] MEDS ORDERED: DIPHENHYDRAMINE HCL 50 MG/ML VIAL IV ONE (21:40)
[2019-03-09] MEDS ORDERED: METOCLOPRAMIDE HCL INJ/PF 10 MG/2 ML SDV IV ONE (21:40)
[2019-03-09] MEDS ORDERED: MECLIZINE HCL 25 MG TABLET PO ONE (21:40)
[2019-03-09] MEDS ORDERED: KETOROLAC TROMETHAMINE INJ/PF 30 MG/1 ML SDV IV ONE (21:40)
[2019-03-09] MEDS ORDERED: NORMAL SALINE 1000 ML 1,000 ML IV ONE (21:40)
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
[2019-03-10] MEDS ORDERED: CYCLOBENZAPRINE HCL 10 MG TABLET PO ONE (00:55)
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
[2019-03-10 01:14] VITALS: BP 106/60
== END 2019-03-10 01:10 | disposition home or self-care (01) ==
LOC: ER 20:16
DX: F07.81 Postconcussional syndrome (principal); R51 Headache; R11.2 Nausea with vomiting, unspecified; W22.8XXA Striking against or struck by other objects, initial encounter; F17.200 Nicotine dependence, unspecified, uncomplicated; J45.909 Unspecified asthma, uncomplicated
CPT/HCPCS: 99283; 96361; 96374; 96375; J1200; J1885; J2765; J7030

== ENCOUNTER 2019-03-13 00:02 | Emergency (ER) | payer OTHER ==
[2019-03-13] MEDS ORDERED: KETOROLAC TROMETHAMINE INJ/PF 30 MG/1 ML SDV IM ONE (04:04)
--- NOTE | 2019-03-13 04:11 | ER Document Report ---
ED General - General Chief Complaint: Low Back Pain Stated Complaint: LOWER BACK AND HIP PAIN Time Seen by Provider: 03/13/19 03:52 TRAVEL OUTSIDE OF THE [place] IN LAST 30 DAYS: No - HPI Notes: Patient is a 28-year-old male that presents to the emergency department for chief complaint of back pain. Patient reports around 1 PM yesterday started having an achy pain in his right lower back. The pain radiates down his right leg and into his right hip. The pain is worse with movement and weightbearing. He denies any lower extremity numbness or weakness, fever, saddle anesthesia, fall or injury, bowel or bladder incontinence. Patient has taken ibuprofen yesterday afternoon and reports minimal improvement. He states he also has muscle relaxers that he took one time yesterday as well. Past Medical History: Negative Past Surgical History: Negative Social History: Denies drugs alcohol and tobacco Family History: Reviewed and noncontributory for presenting illness Allergies: Reviewed, see documented allergy list. REVIEW OF SYSTEMS: CONSTITUTIONAL : No fever No chills No diaphoresis No recent illness EENT: No vision changes No congestion No sore throat CARDIOVASCULAR: No chest pain No palpitations RESPIRATORY: No shortness of breath No cough No difficulty breathing GASTROINTESTINAL: No abdominal pain No nausea No vomiting No diarrhea GENITOURINARY: No dysuria No hematuria No difficulty urinating MUSCULOSKELETAL: back pain leg pain No arm pain SKIN: No rashes No lesions LYMPHATIC: No swollen, enlarged glands. NEUROLOGICAL: No lightheadedness No headache No weakness No paresthesias PSYCHIATRIC: No anxiety No depression PHYSICAL EXAMINATION: Vital signs reviewed, nursing noted reviewed. GENERAL: Well-appearing, well-nourished and in no acute distress. HEAD: Atraumatic, normocephalic. EYES: Eyes appear normal, extraocular movements intact, sclera anicteric, conjunctiva are normal. ENT: nares patent, oropharynx clear without exudates. Moist mucous membranes. NECK: Normal range of motion, supple without lymphadenopathy LUNGS: Breath sounds clear to auscultation bilaterally and equal. No wheezes rales or rhonchi. HEART: Regular rate and rhythm without murmurs ABDOMEN: Soft, nontender, normoactive bowel sounds. No rebound, guarding, or rigidity. No masses appreciated. EXTREMITIES: Right gluteal tenderness, pelvis stable, no right hip bony tenderness with normal range of motion of the right hip and no pain with logroll, normal right knee exam, good range of motion, no pitting or edema. Back: No midline thoracic or lumbar tenderness, normal range of motion, right SI joint and right lumbar paraspinal muscle tenderness. NEUROLOGICAL: No focal neurological deficits. Moves all extremities spontaneousl y Motor and sensory grossly intact on exam. PSYCH: Normal mood, normal affect. SKIN: Warm, Dry, normal turgor, no rashes or lesions noted on exposed skin - Related Data Allergies/Adverse Reactions: cefaclor [From [facility]] Adverse Reaction (Verified 03/03/19 16:24) Urticaria Past Medical History - Social History Smoking Status: Never Smoker Family History: Reviewed & Not Pertinent Pulmonary Medical History: Reports: Hx Asthma Renal/ Medical History: Denies: Hx Peritoneal Dialysis Musculoskeletal Medical History: Reports Hx Arthritis, Reports Hx Musculoskeletal Trauma Psychiatric Medical History: Reports: Hx Depression Past Surgical History: Reports: Other - plastic facial - Immunizations Immunizations up to date: Yes Hx Diphtheria, Pertussis, Tetanus Vaccination: Yes - unknown Physical Exam - Vital signs Vitals: Temp Pulse Resp BP Pulse Ox 98.6 F 88 18 108/53 L 96 03/13/19 00:52 03/13/19 00:52 03/13/19 00:52 03/13/19 00:52 03/13/19 00:52 Course - Re-evaluation Re-evalutation: 03/13/19 04:09 Vitals reviewed. Nursing notes reviewed. Patient has no midline spinal tenderness. He is afebrile without neurologic deficits. Patient has no symptoms of cauda equina syndrome, epidural abscess, discitis or transverse myelitis. He has no traumatic history or bony tenderness to indicate imaging to evaluate for underlying fracture. Patient's pain is reproducible with palpation of his lumbar paraspinal muscles and SI joint as well as palpation over his right sciatic nerve. His symptoms are mostly muscular. Patient has muscle relaxers and ibuprofen at home. He was prescribed prednisone yesterday for poison matt which she has not filled yet, I advised to get this prescription filled. Patient did receive Solu-Medrol yesterday and I cannot visualize any rash today on patient's extremities or trunk. Patient will continue taking ibuprofen at home as well. He was given Toradol in the ED for pain control. He was counseled on return precautions and the importance of following up with primary care. Patient is stable at discharge. 03/13/19 04:11 - Vital Signs Vital signs: Temp Pulse Resp BP Pulse Ox 98.8 F 71 18 115/61 97 03/13/19 03:24 03/13/19 03:24 03/13/19 03:24 03/13/19 03:24 03/13/19 03:24 Discharge - Discharge Clinical Impression: Back pain Qualifiers: Back pain location: low back pain Chronicity: acute Back pain laterality: right Sciatica presence: with sciatica Sciatica laterality: sciatica of right side Qualified Code(s): M54.41 - Lumbago with sciatica, right side Condition: Stable Disposition: HOME, SELF-CARE Instructions: Low Back Pain ([facility]), Sciatica ([facility]) Additional Instructions: Please return to the emergency department if you have any worsening, or concern of your symptoms. Please return to the emergency department if you develop chest pain, difficulty breathing, severe abdominal pain, or ongoing vomiting. Please follow-up with your primary care physician in 2-3 days and any other recommended physicians. If prescribed, take all medications as directed. If you have any questions or concerns do not hesitate to return the emergency department for evaluation. Referrals: [facility] [Provider Group] - Follow up as needed [facility] [Provider Group] - Follow up as needed
[2019-03-13 05:06] VITALS: BP 117/71
== END 2019-03-13 05:04 | disposition home or self-care (01) ==
LOC: ER 00:02
DX: M54.41 Lumbago with sciatica, right side (principal); J45.909 Unspecified asthma, uncomplicated
CPT/HCPCS: 99283; 96374; J1885

== ENCOUNTER 2019-04-08 23:50 | Emergency (ER) | payer OTHER ==
[2019-04-09] MEDS ORDERED: IPRATROPIUM/ALBUTEROL 0.5-2.5 MG/3 ML AMPUL NEB ONE (00:59)
[2019-04-09] MEDS ORDERED: ASPIRIN 81 MG TABLET, CHEWABLE PO ONE (00:59)
[2019-04-09] MEDS ORDERED: MORPHINE SULFATE 10 MG/ML INJ IV ONE (00:59)
[2019-04-09] MEDS ORDERED: ONDANSETRON HCL INJ/PF 4 MG/2 ML SDV IV ONE ×2 (00:59→01:57)
[2019-04-09 01:02] LABS: ABSOLUTE BASOPHILS # (AUTO) 0.1 10^3/uL (0.0-0.2); ABSOLUTE EOSINOPHILS # (AUTO) 0.3 10^3/uL (0.0-0.6); ABSOLUTE LYMPHOCYTES (AUTO) 3.7 10^3/uL (0.5-4.7); ABSOLUTE MONOCYTES (AUTO) 0.6 10^3/uL (0.1-1.4); ABSOLUTE NEUT (AUTO) 5.7 10^3/uL (1.7-8.2); BASOPHILS % (AUTO) 0.7 % (0-2); EOSINOPHILS % (AUTO) 2.8 % (0-6); HEMATOCRIT 45.8 % (37.9-51.0); HEMOGLOBIN 15.4 g/dL (13.5-17.0); LYMPHOCYTES % (AUTO) 35.7 % (13-45); MEAN CORPUSCULAR HEMOGLOBIN 29.5 pg (27.0-33.4); MEAN CORPUSCULAR HGB CONC 33.7 g/dL (32.0-36.0); MEAN CORPUSCULAR VOLUME 88 fl (80-97); MONOCYTES % (AUTO) 5.9 % (3-13); PLATELET COUNT 200 10^3/uL (150-450); RED BLOOD COUNT 5.24 10^6/uL (4.35-5.55); RED CELL DISTRIBUTION WIDTH 13.4 % (11.5-14.0); SEGMENTED NEUTROPHILS % (AUTO) 54.9 % (42-78); TOTAL CELLS COUNTED % (AUTO) 100 %; WHITE BLOOD COUNT 10.4 10^3/uL (4.0-10.5)
--- NOTE | 2019-04-09 01:02 | ER Document Report ---
ED General - General Chief Complaint: Chest Pain Stated Complaint: CHEST PAIN Time Seen by Provider: 04/09/19 00:50 Primary Care Provider: ESTELLE HALL MD [ACTIVE STAFF] - Follow up in 3-5 days Mode of Arrival: Ambulatory Information source: Patient, [facility] Records Notes: 28-year-old male with degenerative disc disease, arthritis, asthma, reported history of arrhythmia as an infant presents with complaint of right-sided chest pain that started just prior to arrival. Patient describes the pain as sharp, intermittent with radiation down his right arm. He denies any recent cough, congestion, illness. Patient denies any associated nausea, diaphoresis, shortness of breath. Patient reports 1 alcoholic beverage's tonight. TRAVEL OUTSIDE OF THE [place] IN LAST 30 DAYS: No - HPI Onset: Just prior to arrival Onset/Duration: Sudden Quality of pain: Sharp Severity: Moderate Pain Level: 2 Associated symptoms: Chest pain. denies: Nonproductive cough, Productive cough, Fever, Nausea, Vomiting, Shortness of breath, Sore throat, Sweating Exacerbated by: Denies Relieved by: Denies Similar symptoms previously: No Recently seen / treated by doctor: No - Related Data Allergies/Adverse Reactions: cefaclor [From Cecl[facility]] Adverse Reaction (Verified 03/03/19 16:24) Urticaria Past Medical History - General Information source: Patient, Friend, [facility] Records - Social History Smoking Status: Current Some Day Smoker Cigarette use (# per day): Yes - 2 Smoking Education Provided: Yes - Smoking cessation counseling was provided for 4 minutes at the bedside Frequency of alcohol use: Occasional Drug Abuse: Marijuana Lives with: Spouse/Significant other Family History: Reviewed & Not Pertinent Patient has suicidal ideation: No Patient has homicidal ideation: No Pulmonary Medical History: Reports: Hx Asthma Renal/ Medical History: Denies: Hx Peritoneal Dialysis Musculoskeletal Medical History: Reports Hx Arthritis, Reports Hx Musculoskeletal Trauma Psychiatric Medical History: Reports: Hx Depression Past Surgical History: Reports: Other - plastic facial - Immunizations Immunizations up to date: Yes Hx Diphtheria, Pertussis, Tetanus Vaccination: Yes - unknown Review of Systems - Review of Systems Notes: REVIEW OF SYSTEMS: CONSTITUTIONAL : Denies fever, chills, or sweats. Denies recent illness. Denies weight loss, recent hospitalizations. EENT: Denies visual changes, eye pain. Denies sore throat, oral lesions, difficulty swallowing. CARDIOVASCULAR: + chest pain. Denies palpitations. Denies lower extremity edema. RESPIRATORY: Denies cough. Denies shortness of breath, wheezing. GASTROINTESTINAL: Denies abdominal pain or distention. Denies nausea, vomiting , or diarrhea. Denies blood in vomitus, stools, or per rectum. Denies black, tarry stools. Denies constipation. GENITOURINARY: Denies difficulty urinating, painful urination, frequency, blood in urine, testicular pain or penile discharge. MUSCULOSKELETAL: Denies back or neck pain or stiffness. Denies joint pain or swelling. SKIN: Denies rash, lesions or sores. HEMATOLOGIC : Denies easy bruising or bleeding. LYMPHATIC: Denies swollen glands. NEUROLOGICAL: Denies confusion or altered mental status. Denies loss of consciousness. Denies dizziness or lightheadedness. Denies headache. Denies weakness or paralysis. Denies problems difficulty with ambulation, slurred speech. Denies sensory loss, numbness, or tingling. Denies seizures. PSYCHIATRIC: Denies anxiety or stress. Denies depression, suicidal ideation, or Physical Exam - Vital signs Vitals: Temp Pulse Resp BP Pulse Ox 98 F 78 16 120/79 99 04/08/19 23:56 04/08/19 23:56 04/08/19 23:56 04/08/19 23:56 04/08/19 23:56 - Notes Notes: PHYSICAL EXAMINATION: GENERAL: Well-appearing, well-nourished and in no acute distress. HEAD: Atraumatic, normocephalic. EYES: Pupils equal round and reactive to light, extraocular movements intact, sclera anicteric, conjunctiva are normal. ENT: Nares patent, oropharynx clear without exudates. Moist mucous membranes. NECK: Normal range of motion, supple without lymphadenopathy LUNGS: Breath sounds clear to auscultation bilaterally and equal. No wheezes rales or rhonchi. HEART: Regular rate and rhythm without murmurs ABDOMEN: Soft, nontender, nondistended abdomen. No guarding, no rebound. No masses appreciated. Musculoskeletal: Normal range of motion, no pitting or edema. No cyanosis. NEUROLOGICAL: Cranial nerves grossly intact. Normal speech, normal gait. Normal sensory, motor exams PSYCH: Normal mood, normal affect. SKIN: Warm, Dry, normal turgor, no rashes or lesions noted. Course - Re-evaluation Re-evalutation: 04/09/19 23:38 Laboratory 04/09/19 04/09/19 04/09/19 00:45 00:45 00:45 WBC 10.4 RBC 5.24 Hgb 15.4 Hct 45.8 MCV 88 MCH 29.5 MCHC 33.7 RDW 13.4 Plt Count 200 Lymph % (Auto) 35.7 [place] % (Auto) 5.9 Eos % (Auto) 2.8 Baso % (Auto) 0.7 Absolute Neuts (auto) 5.7 Absolute Lymphs (auto) 3.7 Absolute Monos (auto) 0.6 Absolute Eos (auto) 0.3 Absolute Basos (auto) 0.1 Seg Neutrophils % 54.9 Sodium 141.7 Potassium 3.6 Chloride 110 H Carbon Dioxide 26 Anion Gap 6 BUN 11 Creatinine 1.19 Est GFR ( Amer) > 60 Est GFR (MDRD) Non-Af > 60 Glucose 106 Calcium 9.6 Total Bilirubin 0.4 Direct Bilirubin 0.3 Neonat Total Bilirubin Not Reportable Neonat Direct Bilirubin Not Reportable Neonat Indirect Bili Not Reportable AST 21 ALT 13 Alkaline Phosphatase 38 Creatine Kinase 86 CK-MB (CK-2) 0.34 Troponin I < 0.012 Total Protein 5.8 L Albumin 3.7 Chest X-Ray 04/09/19 01:31 IMPRESSION: No acute cardiopulmonary findings. Temp Pulse Resp BP Pulse Ox 97.6 F 78 12 107/79 97 04/09/19 02:47 04/08/19 23:56 04/09/19 02:47 04/09/19 02:47 04/09/19 02:47 Presentation of chest pain in an otherwise well appearing patient. Low clinical suspicion for ACS given clinical history, exam, EKG without ST elevations or depressions, and negative initial troponin. HEART score less than or equal to 3. PE also seems unlikely given clinical history, absence of tachycardia or dyspnea. Patient is PERC criteria negative. CXR without evidence of pneumothorax or pneumonia. No widened mediastinum. Aortic dissection also seems unlikely given history, symmetric pulses, CXR, and vitals. HEART Score: History-0 2 ECG-0 Age-0 Risk Factors -1 Troponin-0 Total: 1 Chest pain in a patient without evidence of cardiac or other serious etiology on workup today. I discussed with patient that, based on their age, risk factors and emergency department testing today, the likelihood that their symptoms are related to a heart attack is very low (estimated risk of heart attack or over the next 30 days of less than 1%). The patient demonstrates decision making capacity and has verbalized an understanding of these risks to me. Based on this, the patient has chosen to follow-up as an outpatient. Usual chest pain return precautions reviewed. The patient states understanding and agreement with this plan. - Vital Signs Vital signs: Temp Pulse Resp BP Pulse Ox 97.6 F 78 12 107/79 97 04/09/19 02:47 04/08/19 23:56 04/09/19 02:47 04/09/19 02:47 04/09/19 02:47 - Laboratory Result Diagrams: 04/09/19 00:45 04/09/19 00:45 Laboratory results interpreted by me: 04/09/19 00:45 Chloride 110 H Total Protein 5.8 L - Diagnostic Test Radiology reviewed: Image reviewed, Reports reviewed - EKG Interpretation by Me EKG shows normal: Sinus rhythm Rate: Normal Rhythm: NSR When compared to previous EKG there are: No significant change Discharge - Discharge Clinical Impression: Chest pain Qualifiers: Chest pain type: unspecified Qualified Code(s): R07.9 - Chest pain, unspecified Condition: Good Disposition: HOME, SELF-CARE Instructions: Chest Pain of Unclear Cause ([facility]) Additional Instructions: You were seen today for chest pain. The exact cause of your pain is unclear. However, based on your cardiac enzyme testing, chest x-ray, and EKG it does not appear that it is from an immediately life-threatening cause at this time. Although your testing here is normal is critical that you follow-up with your primary care physician for continued evaluation of this chest pain and possible stress testing. I recommended you see your physician within the next 24-48 hours to be evaluated for consideration of a stress test. Please return to emergency department immediately if you have worsening of your chest pain, shortness of breath, vomiting, become unable to exert yourself due to pain or difficulty breathing, you pass out, or have any pain that radiates into your arms, jaw, or back. Please also return if you have any additional symptoms that are concerning to you. Forms: Smoking Cessation Education Referrals: ESTELLE HALL MD [ACTIVE STAFF] - Follow up in 3-5 days
[2019-04-09] MEDS ORDERED: RINGERS SOLUTION,LACTATED 1,000 ML IV ONE (01:04)
[2019-04-09 01:20] LABS: ALBUMIN 3.7 g/dL (3.5-5.0); ALKALINE PHOSPHATASE 38 U/L (38-126); ANION GAP 6 (5-19); ASPARTATE AMINO TRANSFERASE 21 U/L (17-59); BILIRUBIN,DIRECT 0.3 mg/dL (0.0-0.4); BILIRUBIN,TOTAL 0.4 mg/dL (0.2-1.3); BLOOD UREA NITROGEN 11 mg/dL (7-20); CALCIUM 9.6 mg/dL (8.4-10.2); CARBON DIOXIDE 26 mmol/L (22-30); CHLORIDE 110 mmol/L (98-107); CREATINE KINASE 86 U/L (55-170); GLUCOSE 106 mg/dL (75-110); POTASSIUM 3.6 mmol/L (3.6-5.0); TOTAL PROTEIN 5.8 g/dL (6.3-8.2)
[2019-04-09 01:27] LABS: CREATINE KINASE MB 0.34 ng/mL (<4.55)
[2019-04-09 01:32] LABS: TROPONIN I < 0.012 ng/mL
--- NOTE | 2019-04-09 02:21 | RADIOLOGY REPORT (SQ) ---
EXAM DESCRIPTION: XR CHEST 2 VIEWS COMPLETED DATE/TME: 04/09/2019 01:31 CLINICAL HISTORY: 28 years Male, Chest pain COMPARISON:Aug 10 2016 NUMBER OF VIEWS/TECHNIQUE: 2, Frontal, Lateral FINDINGS: Increased lung volume, clear parenchyma, normal cardiac silhouette, and intact bony thorax. Mild physiologic anterior vertebral wedging at the thoracal lumbar junction. IMPRESSION: No acute cardiopulmonary findings.
[2019-04-09] MEDS ORDERED: KETOROLAC TROMETHAMINE INJ/PF 30 MG/1 ML SDV IV ONE (02:39)
[2019-04-09] MEDS ORDERED: HYDROCODONE/ACETAMINOPHEN 5-325 MG TABLET PO ONE (02:39)
[2019-04-09 02:49] VITALS: BP 107/79
--- NOTE | 2019-04-10 23:07 | EKG REPORT ---
SEVERITY:- OTHERWISE NORMAL ECG - SINUS ARRHYTHMIA, RATE 55-75 : Confirmed by: Karen Cardoso 10-Apr-2019 23:06:18
== END 2019-04-09 03:07 | disposition home or self-care (01) ==
LOC: ER 23:50
DX: R07.9 Chest pain, unspecified (principal); J45.909 Unspecified asthma, uncomplicated; Z71.6 Tobacco abuse counseling; F12.10 Cannabis abuse, uncomplicated; F17.210 Nicotine dependence, cigarettes, uncomplicated
CPT/HCPCS: 93005; 96376; 94640; 99285; 96361; 96374; 96375; 36415; 82553; 82550; 85025; 80053; 84484; 71046; 93010; J1885; J2270; J2405; J7120; J7620

== ENCOUNTER 2019-05-08 22:14 | Emergency (ER) | payer OTHER ==
--- NOTE | 2019-05-08 23:23 | ER Document Report ---
ED General - General Chief Complaint: Syncope Stated Complaint: SLEEP PROBLEMS,CHEST PAIN,NECK/HEAD PAIN Time Seen by Provider: 05/08/19 22:46 Notes: Patient is a 28-year-old male that comes to the emergency department for complaints. He states he is sleeping poorly, he feels like his heart is races at times, he has intermittent chest pain, he wakes from sleep after a nightmares in a cold sweat. He denies recreational drugs, he is on no prescribed any medications at this time. He states he thinks he is losing weight. He states he wonders if his symptoms are from a concussion that happened some months ago. He denies fevers, vomiting, abdominal pain, visual changes, focal numbness or weakness. He denies any daily prescribed medications or diagnosed medical problems. He does smoke, denies any alcohol. He denies frequent caffeine. He states he used to be on a variety of medications for sleep including Ambien at one point which he did poorly on with sleepwalking and Abilify at another time. TRAVEL OUTSIDE OF THE [place] IN LAST 30 DAYS: No - Related Data Allergies/Adverse Reactions: cefaclor [From [facility]] Adverse Reaction (Verified 03/03/19 16:24) Urticaria Past Medical History - General Information source: Patient - Social History Smoking Status: Current Every Day Smoker Frequency of alcohol use: None Drug Abuse: None Lives with: Spouse/Significant other Family History: Reviewed & Not Pertinent Patient has suicidal ideation: No Patient has homicidal ideation: No Pulmonary Medical History: Reports: Hx Asthma Renal/ Medical History: Denies: Hx Peritoneal Dialysis Musculoskeletal Medical History: Reports Hx Arthritis, Reports Hx Musculoskeletal Trauma Psychiatric Medical History: Reports: Hx Depression Past Surgical History: Reports: Other - plastic facial - Immunizations Immunizations up to date: Yes Hx Diphtheria, Pertussis, Tetanus Vaccination: Yes - unknown Review of Systems - Review of Systems Constitutional: See HPI EENT: No symptoms reported Cardiovascular: See HPI Respiratory: No symptoms reported Gastrointestinal: No symptoms reported Genitourinary: No symptoms reported Male Genitourinary: No symptoms reported Musculoskeletal: No symptoms reported Skin: No symptoms reported Hematologic/Lymphatic: No symptoms reported Neurological/Psychological: See HPI Physical Exam - Vital signs Vitals: Temp Pulse Resp BP Pulse Ox 98.5 F 97 18 133/87 H 95 05/08/19 22:18 05/08/19 22:18 10/01/19 22:18 05/08/19 22:18 05/08/19 22:18 - Notes Notes: GENERAL: Alert, interacts well. No acute distress. HEAD: Normocephalic, atraumatic. EYES: Pupils equal, round, and reactive to light. Extraocular movements intact. ENT: Oral mucosa moist, tongue midline. Oropharynx unremarkable. Airway patent. Nares patent, no nasal septal hematoma NECK: Full range of motion. Supple. Trachea midline. LUNGS: Clear to auscultation bilaterally, no wheezes, rales, or rhonchi. No respiratory distress. HEART: Regular rate and rhythm. No murmur ABDOMEN: Soft, non-tender. Non-distended. Bowel sounds present in all 4 quadrants. GENITOURINARY: Deferred EXTREMITIES: Moves all 4 extremities spontaneously. No edema, normal radial and dorsalis pedis pulses bilaterally. No cyanosis. BACK: no cervical, thoracic, lumbar midline tenderness. No saddle anesthesia, normal distal neurovascular exam. Moves all extremities in full range of motion. NEUROLOGICAL: Alert and oriented x3. Normal speech. Cranial nerves II through XII grossly intact. PSYCH: Closes his eyes when speaking to me but does make eye contact otherwise. Normal affect, normal mood otherwise. SKIN: Warm, dry, normal turgor. No rashes or lesions noted. Course - Re-evaluation Re-evalutation: EKG unremarkable, chest x-ray unremarkable, CBC, chemistry, troponin, TSH all unremarkable. Patient symptoms intermittent and ongoing. Very low suspicion of acute intra-thoracic abnormality. Unremarkable vital signs. On the monitoring patient has no concerning abnormality. Patient noted to have increased weight from 58 to 62 kg today. Patient is not losing weight as he is concerned he has. I discussed all results with patient at length. I suspect that his sleeping dysfunction is causing headaches, palpitations, generalized anxiety, and his chest pain that he currently does not have does not appear to be any concerning abnormality based on his evaluation and work-up. We did discuss different options, patient will be started on Vistaril for sleep first, follow-up with primary care, consider additional options after that. Discussed sleep recommendations, follow-up, and return precautions. Patient and significant other state appreciation and agreement. Stable at time of discharge. - Vital Signs Vital signs: Temp Pulse Resp BP Pulse Ox 98.0 F 76 16 103/69 99 05/09/19 02:26 05/09/19 02:26 05/09/19 02:26 05/09/19 02:26 05/09/19 02:26 - Laboratory Result Diagrams: 05/08/19 23:50 05/08/19 23:50 Laboratory results interpreted by me: 05/08/19 23:50 Alkaline Phosphatase 34 L Total Protein 5.9 L - EKG Interpretation by Me Additional EKG results interpreted by me: EKG shows sinus rhythm at a rate of 82, QTC of 416, AR interval of 124, normal axis, no T wave inversions or ST segment changes in consecutive leads. Discharge - Discharge Clinical Impression: Heart palpitations Insomnia Qualifiers: Insomnia type: unspecified Qualified Code(s): G47.00 - Insomnia, unspecified Chest pain Qualifiers: Chest pain type: unspecified Qualified Code(s): R07.9 - Chest pain, unspecified Condition: Stable Disposition: HOME, SELF-CARE Additional Instructions: Your work-up today does not show any concerning findings. I suspect your sleep disorder is resulting in a lot of your symptoms. Follow-up with primary care for additional management, take medication as prescribed along with [id number] medication such as melatonin, see additional recommendations below. Return for any concerning symptoms or something is not right. Everybody has trouble sleeping now and then. When it becomes a frequent problem, you must look for an underlying cause. Depression can interfere with sleep. Anxiety keeps people from falling asleep, while true depression causes fitful sleep and early awakening. If you think anxiety or depression might be your problem, your doctor can help. Many medicines can interfere with sleep. Try cutting back or eliminating caffeine. Watch out for "energizing" vitamins and herbs. Alcohol interferes powerfully with normal sleep. Get regular exercise. Have regular sleep times. Don't "sleep in." Avoid late afternoon naps. Any medical problem that causes pain or bladder discomfort can interfere with sleep. Discuss any problem you have with your doctor. Prescriptions: Hydroxyzine Pamoate [Vistaril 25 mg Capsule] 25 mg PO DAILY PRN #30 capsule PRN Reason:
--- NOTE | 2019-05-08 23:51 | RADIOLOGY REPORT (SQ) ---
EXAM DESCRIPTION: XR CHEST 1 VIEW COMPLETED DATE/TME: 05/08/2019 23:17 CLINICAL HISTORY: 28 years, Male, chest pain COMPARISON: 9-19 chest NUMBER OF VIEWS: 1 TECHNIQUE: Portable chest LIMITATIONS: None. FINDINGS: Heart size normal. Lungs clear. No pneumothorax IMPRESSION: Negative chest copyright 2010 [employer]- All Rights Reserved
[2019-05-09 00:09] LABS: ABSOLUTE BASOPHILS # (AUTO) 0.1 10^3/uL (0.0-0.2); ABSOLUTE EOSINOPHILS # (AUTO) 0.2 10^3/uL (0.0-0.6); ABSOLUTE MONOCYTES (AUTO) 0.5 10^3/uL (0.1-1.4); ABSOLUTE NEUT (AUTO) 5.2 10^3/uL (1.7-8.2); BASOPHILS % (AUTO) 0.8 % (0-2); EOSINOPHILS % (AUTO) 2.8 % (0-6); HEMATOCRIT 44.2 % (37.9-51.0); HEMOGLOBIN 15.1 g/dL (13.5-17.0); LYMPHOCYTES % (AUTO) 32.8 % (13-45); MEAN CORPUSCULAR HGB CONC 34.1 g/dL (32.0-36.0); MEAN CORPUSCULAR VOLUME 88 fl (80-97); MONOCYTES % (AUTO) 5.9 % (3-13); PLATELET COUNT 186 10^3/uL (150-450); RED BLOOD COUNT 5.04 10^6/uL (4.35-5.55); RED CELL DISTRIBUTION WIDTH 12.9 % (11.5-14.0); SEGMENTED NEUTROPHILS % (AUTO) 57.7 % (42-78); TOTAL CELLS COUNTED % (AUTO) 100 %
[2019-05-09 00:26] LABS: ALBUMIN 3.7 g/dL (3.5-5.0); ALKALINE PHOSPHATASE 34 U/L (38-126); ANION GAP 6 (5-19); ASPARTATE AMINO TRANSFERASE 21 U/L (17-59); BILIRUBIN,DIRECT 0.1 mg/dL (0.0-0.4); BILIRUBIN,TOTAL 0.3 mg/dL (0.2-1.3); BLOOD UREA NITROGEN 17 mg/dL (7-20); CALCIUM 8.9 mg/dL (8.4-10.2); CARBON DIOXIDE 26 mmol/L (22-30); CHLORIDE 106 mmol/L (98-107); GLUCOSE 106 mg/dL (75-110); POTASSIUM 3.7 mmol/L (3.6-5.0); TOTAL PROTEIN 5.9 g/dL (6.3-8.2)
[2019-05-09] MEDS ORDERED: HYDROXYZINE PAMOATE 25 MG CAPSULE (4 CAP/ER DISP) PO PRN (02:16)
[2019-05-09 02:28] VITALS: BP 103/69
--- NOTE | 2019-05-09 08:03 | EKG REPORT ---
SEVERITY:- NORMAL ECG - SINUS RHYTHM : Confirmed by: Alfreda Hatfield MD 09-May-2019 08:02:58
== END 2019-05-09 02:30 | disposition home or self-care (01) ==
LOC: ER 22:14
DX: G47.00 Insomnia, unspecified (principal); R07.9 Chest pain, unspecified; R00.2 Palpitations; F17.200 Nicotine dependence, unspecified, uncomplicated; J45.909 Unspecified asthma, uncomplicated; Z87.820 Personal history of traumatic brain injury
CPT/HCPCS: 93005; 36415; 83735; 84443; 85025; 80053; 84484; 71045; 93010; J3490

== ENCOUNTER 2019-08-28 10:29 | Emergency (ER) | payer BC, OTHER ==
[2019-08-28] MEDS ORDERED: ASPIRIN 81 MG TABLET, CHEWABLE PO ONE (11:16)
--- NOTE | 2019-08-28 11:16 | ER Document Report ---
ED Medical Screen (RME) - General Chief Complaint: Chest Pain Stated Complaint: LOW BACK PAIN,LEFT HIP PAIN Time Seen by Provider: 08/28/19 11:09 Mode of Arrival: Wheelchair Information source: Patient Notes: 28-year-old male presented to ED for complaint of chest pain back pain and left hip, pain starting at around 930 last night. He was getting off of work when the pain started. He states that the pain was such that he could not put pressure on his gas pedal with his right foot. He states he had to drive very slow because he could not keep the pressure down on the gas pedal. He went home went to bed. He states he has not been to sleep because of the pain in his chest back and leg. Significant other states she tried to convince him to come in all night family he agreed to come in this morning for this pain to be evaluated. Significant other states he does have a heart murmur, he states he has had someone request that he have surgery on his L3-L4-L5 but he has not done that yet. He states he has had plastic surgery on his left eyebrow and lutheran due to a dog attack. And he has had a staph infection to his right hand from another dog bite. He states last time he had blood work they told him that his kidney levels were low. States he has been told that he had herniated disc, degenerative disc disease, and arthritis in the L3-L4-L5 area. I have greeted and performed a rapid initial assessment of this patient. A comprehensive ED assessment and evaluation of the patient, analysis of test results and completion of medical decision making process will be conducted by an additional ED providers. TRAVEL OUTSIDE OF THE [place] IN LAST 30 DAYS: No - Related Data Allergies/Adverse Reactions: [facility] [[facility] Adverse Reaction (Verified 03/03/19 16:24) Urticaria Past Medical History Pulmonary Medical History: Reports: Hx Asthma Renal/ Medical History: Denies: Hx Peritoneal Dialysis Musculoskeltal Medical History: Reports Hx Arthritis, Reports Hx Musculoskeletal Trauma Psychiatric Medical History: Reports: Hx Depression Past Surgical History: Reports: Other - plastic facial - Immunizations Immunizations up to date: Yes Hx Diphtheria, Pertussis, Tetanus Vaccination: Yes - unknown Physical Exam - Vital signs Vitals: Temp Pulse Resp BP Pulse Ox 98.8 F 93 16 116/79 99 08/28/19 10:55 08/28/19 10:55 08/28/19 10:55 08/28/19 10:55 08/28/19 10:55 Course - Vital Signs Vital signs: Temp Pulse Resp BP Pulse Ox 98.8 F 93 16 116/79 99 08/28/19 10:55 08/28/19 10:55 08/28/19 10:55 08/28/19 10:55 08/28/19 10:55
[2019-08-28 12:00] LABS: HEMOGLOBIN 16.6 g/dL (13.5-17.0); MEAN CORPUSCULAR HEMOGLOBIN 29.8 pg (27.0-33.4); MEAN CORPUSCULAR HGB CONC 33.9 g/dL (32.0-36.0); MEAN CORPUSCULAR VOLUME 88 fl (80-97); PLATELET COUNT 174 10^3/uL (150-450); RED BLOOD COUNT 5.58 10^6/uL (4.35-5.55); RED CELL DISTRIBUTION WIDTH 12.8 % (11.5-14.0); WHITE BLOOD COUNT 22.9 10^3/uL (4.0-10.5)
[2019-08-28 12:19] LABS: ALBUMIN 4.7 g/dL (3.5-5.0); ALKALINE PHOSPHATASE 43 U/L (38-126); ANION GAP 9 (5-19); ASPARTATE AMINO TRANSFERASE 35 U/L (17-59); BILIRUBIN,TOTAL 1.2 mg/dL (0.2-1.3); BLOOD UREA NITROGEN 15 mg/dL (7-20); CALCIUM 9.8 mg/dL (8.4-10.2); CARBON DIOXIDE 28 mmol/L (22-30); CHLORIDE 104 mmol/L (98-107); GLUCOSE 90 mg/dL (75-110); POTASSIUM 4.1 mmol/L (3.6-5.0); TOTAL PROTEIN 7.7 g/dL (6.3-8.2)
--- NOTE | 2019-08-28 12:36 | ER Document Report ---
ED General - General Chief Complaint: Chest Pain Stated Complaint: LOW BACK PAIN,LEFT HIP PAIN Time Seen by Provider: 08/28/19 11:09 Mode of Arrival: Wheelchair Notes: Patient is a 28-year-old male who presents emergency department with left hip pain that radiates down his left leg. He started to feel it last night at 2130. He states that he was unable to push the gas pedal. Patient has a history of herniated disks at L3-L5. He also apparently has degenerative disc disease. Patient states that he took some Flexeril and migraine medication, but had little help with his symptoms. Patient is able to walk with help. Patient denies any new bladder or bowel dysfunction. TRAVEL OUTSIDE OF THE [place] IN LAST 30 DAYS: No - Related Data Allergies/Adverse Reactions: [facility] [[facility] Adverse Reaction (Verified 03/03/19 16:24) Urticaria Past Medical History - General Information source: Patient - Social History Smoking Status: Current Every Day Smoker Frequency of alcohol use: None Drug Abuse: None Family History: Reviewed & Not Pertinent Patient has suicidal ideation: No Patient has homicidal ideation: No Pulmonary Medical History: Reports: Hx Asthma Renal/ Medical History: Denies: Hx Peritoneal Dialysis Musculoskeletal Medical History: Reports Hx Arthritis, Reports Hx Musculoskeletal Trauma Psychiatric Medical History: Reports: Hx Depression Past Surgical History: Reports: Other - plastic facial - Immunizations Immunizations up to date: Yes Hx Diphtheria, Pertussis, Tetanus Vaccination: Yes - unknown Review of Systems - Review of Systems Notes: REVIEW OF SYSTEMS: CONSTITUTIONAL : Denies recent illness. Denies recent unintentional weight loss. Denies fever, chills, or sweats. EENT: Denies eye, ear, throat, or mouth pain, discharge, or symptoms. Denies nasal or sinus congestion. CARDIOVASCULAR: Denies chest pain. RESPIRATORY: Denies shortness of breath, cough, congestion, difficulty breathing, or wheezing. GASTROINTESTINAL: Denies nausea, vomiting, and diarrhea. Denies abdominal pain. Denies constipation. GENITOURINARY: Denies difficulty urinating, burning, blood in urine, urgency or frequency. MUSCULOSKELETAL: See HPI. SKIN: Denies rash, itchiness, or lesions HEMATOLOGIC : Denies easy bruising or bleeding. LYMPHATIC: Denies swollen, painful, enlarged glands. NEUROLOGICAL: Denies no numbness or tingling denies weakness. Denies headache. Denies altered mental status. Denies alteration in speech. PSYCHIATRIC: Denies stress, anxiety, alteration in sleep patterns, or depression. All other systems reviewed and negative. Physical Exam - Vital signs Vitals: Temp Pulse Resp BP Pulse Ox 98.8 F 93 16 116/79 99 08/28/19 10:55 08/28/19 10:55 08/28/19 10:55 08/28/19 10:55 08/28/19 10:55 - Notes Notes: PHYSICAL EXAMINATION: GENERAL: Appears well, healthy, well-nourished, no acute distress. HEAD: Normocephalic, atraumatic. EYES: PERRL, conjunctiva normal, all extraocular movements intact, sclera nonicteric ENT: Dry mucous membranes. NECK: Supple, no noticeable swelling, redness, rash. Normal range of motion. LUNGS: Equal breath sounds bilaterally and clear to auscultation. No wheezes rales or rhonchi. CARDIOVASCULAR: S1-S2, regular rate, regular rhythm. Radial pulses 2+, normal. ABDOMEN: Normoactive bowel sounds. Soft, nontender, no guarding, no rebound tenderness, and no masses palpated. EXTREMITIES: Decreased range of motion to left lower extremity due to pain. NEUROLOGICAL: Moves all extremities upon command. Strength 3/5 in LLE. Strength 5 out of 5 in all other extremities. PSYCH: Normal mood, normal affect. SKIN: Warm, dry. No rash, lesions, ulcerations noted. Normal skin turgor. Course - Re-evaluation Re-evalutation: 08/28/19 16:34 Patient's hematology improved with IV fluids. I suspect patient may be had an acute infection last week. Panic membranes are clear. Patient denies any sore throat, fever, or any other symptoms. At this time, I feel the patient is stable for discharge. I highly advised that he see physical therapy for his chronic back pain. I will give him Robaxin. Follow-up precautions were given. Verbal discharge instructions were given to the patient. They verbalized understanding. They are stable for discharge. - Vital Signs Vital signs: Temp Pulse Resp BP Pulse Ox 98.0 F 93 16 99/72 L 98 08/28/19 15:01 08/28/19 10:55 08/28/19 15:08/28/19 15:08/28/19 15:01 - Laboratory Result Diagrams: 08/28/19 16:14 08/28/19 11:37 Laboratory results interpreted by me: 08/28/19 08/28/19 11:37 16:14 WBC 22.9 H 16.0 H RBC 5.58 H Lymph % (Auto) 7.3 L [place] % (Auto) 1.5 L Absolute Neuts (auto) 14.4 H Seg Neutrophils % 89.9 H Seg Neuts % (Manual) 82 H Band Neutrophils % 1 L Lymphocytes % (Manual) 6 L Abs Neuts (Manual) 19.0 H Abs Monocytes (Manual) 2.3 H Discharge - Discharge Clinical Impression: Chronic back pain Qualifiers: Back pain location: low back pain Back pain laterality: left Sciatica presence: with sciatica Sciatica laterality: sciatica of left side Qualified Code(s): M54.42 - Lumbago with sciatica, left side; G89.29 - Other chronic pain Chest pain Qualifiers: Chest pain type: unspecified Qualified Code(s): R07.9 - Chest pain, unspecified Condition: Stable Disposition: HOME, SELF-CARE Additional Instructions: You were seen today in the emergency department for your chronic back pain and chest pain. Her chest pain work-up was normal. Your labs showed that you had an elevated white blood cell count, but this is most likely due to dehydration. Please follow-up with your primary care provider in regards to this visit. I highly recommend that you go to physical therapy for your chronic back pain. You are also being sent home with Robaxin, muscle relaxer to help with your pain. Follow-up with [facility] for surgery as needed. Prescriptions: Methocarbamol [Robaxin 500 mg Tablet] 1,000 mg PO BIDP PRN #60 tablet PRN Reason: Forms: Return to Work Referrals: [facility] [Provider Group] - Follow up as needed
[2019-08-28 12:37] LABS: ABSOLUTE LYMPHOCYTES# (MANUAL) 1.4 10^3/uL (0.5-4.7); ABSOLUTE MONOCYTES # (MANUAL) 2.3 10^3/uL (0.1-1.4); BAND NEUTROPHILS % (MANUAL) 1 % (3-5); BASOPHILS % (MANUAL) 0 % (0-2); EOSINOPHILS % (MANUAL) 1 % (0-6); LYMPHOCYTES % (MANUAL) 6 % (13-45); MONOCYTES % (MANUAL) 10 % (3-13); PLATELET COMMENT ADEQUATE; RBC MORPHOLOGY COMMENT NORMO-CYTIC/CHROMIC; SEGMENTED NEUTROPHILS % (MAN) 82 % (42-78); TOTAL CELLS COUNTED 100; TOXIC GRANULATION 1+
--- NOTE | 2019-08-28 12:53 | RADIOLOGY REPORT (SQ) ---
EXAM DESCRIPTION: L SPINE WHOLE COMPLETED DATE/TIME: 08/28/2019 11:12 am REASON FOR STUDY: low back and left hip COMPARISON: None. NUMBER OF VIEWS: Five views including obliques. TECHNIQUE: AP, lateral, oblique, and sacral radiographic images acquired of the lumbar spine. LIMITATIONS: None. FINDINGS: MINERALIZATION: Normal. SEGMENTATION: Normal. No transitional anatomy. ALIGNMENT: Normal. VERTEBRAE: Maintained height. No fracture or worrisome bone lesion. DISCS: Preserved height. No significant osteophytes or end plate irregularity. POSTERIOR ELEMENTS: Pedicles and facets are intact. No pars defect or posterior arch defects. HARDWARE: None in the spine. PARASPINAL SOFT TISSUES: Normal. PELVIS: Intact as visualized. No fractures or worrisome bone lesions. SI joints intact. OTHER: No other significant finding. IMPRESSION: No radiographic abnormality of the lumbar spine. TECHNICAL DOCUMENTATION: JOB ID: [id number] [employer]- All Rights Reserved Reading location - IP/workstation name: [email or web address]
--- NOTE | 2019-08-28 12:53 | RADIOLOGY REPORT (SQ) ---
EXAM DESCRIPTION: CHEST 2 VIEWS COMPLETED DATE/TIME: 08/28/2019 11:12 am REASON FOR STUDY: chest pain COMPARISON: 05/08/2019 EXAM PARAMETERS: NUMBER OF VIEWS: two views TECHNIQUE: Digital Frontal and Lateral radiographic views of the chest acquired. RADIATION DOSE: NA LIMITATIONS: none FINDINGS: LUNGS AND PLEURA: No opacities, masses or pneumothorax. No pleural effusion. MEDIASTINUM AND HILAR STRUCTURES: No masses or contour abnormalities. HEART AND VASCULAR STRUCTURES: Heart normal size. No evidence for failure. BONES: No acute findings. HARDWARE: None in the chest. OTHER: No other significant finding. IMPRESSION: NO ACUTE RADIOGRAPHIC FINDING IN THE CHEST. TECHNICAL DOCUMENTATION: JOB ID: [id number] [employer]- All Rights Reserved Reading location - IP/workstation name: [email or web address]
[2019-08-28] MEDS ORDERED: DEXAMETHASONE SOD PHOS INJ 10 MG/1 ML VIAL IM ONE (12:59)
[2019-08-28] MEDS ORDERED: KETOROLAC TROMETHAMINE 60 MG/2 ML SDV IM ONE (12:59)
[2019-08-28] MEDS ORDERED: NORMAL SALINE 1000 ML 1,000 ML IV ONE (13:00)
[2019-08-28 13:02] LABS: APPEARANCE,URINE CLEAR; BILIRUBIN,URINE NEGATIVE (NEGATIVE); COLOR,URINE YELLOW; GLUCOSE, URINE NEGATIVE (NEGATIVE); KETONES,URINE NEGATIVE (NEGATIVE); PROTEIN,URINE NEGATIVE (NEGATIVE); URINE SPECIFIC GRAVITY 1.018; UROBILINOGEN,URINE NEGATIVE mg/dL (<2.0)
--- NOTE | 2019-08-28 13:50 | EKG REPORT ---
SEVERITY:- NORMAL ECG - SINUS RHYTHM : Confirmed by: Parker Hernandez MD 28-Aug-2019 13:49:54
[2019-08-28] MEDS ORDERED: HYDROMORPHONE HCL INJ/PF 2 MG/ML AMPULE IM ONE (15:33)
[2019-08-28 16:21] LABS: ABSOLUTE EOSINOPHILS # (AUTO) 0.2 10^3/uL (0.0-0.6); ABSOLUTE LYMPHOCYTES (AUTO) 1.2 10^3/uL (0.5-4.7); ABSOLUTE MONOCYTES (AUTO) 0.2 10^3/uL (0.1-1.4); ABSOLUTE NEUT (AUTO) 14.4 10^3/uL (1.7-8.2); BASOPHILS % (AUTO) 0.1 % (0-2); EOSINOPHILS % (AUTO) 1.2 % (0-6); HEMATOCRIT 43.7 % (37.9-51.0); HEMOGLOBIN 14.8 g/dL (13.5-17.0); LYMPHOCYTES % (AUTO) 7.3 % (13-45); MEAN CORPUSCULAR HEMOGLOBIN 29.6 pg (27.0-33.4); MEAN CORPUSCULAR HGB CONC 33.9 g/dL (32.0-36.0); MEAN CORPUSCULAR VOLUME 87 fl (80-97); MONOCYTES % (AUTO) 1.5 % (3-13); PLATELET COUNT 157 10^3/uL (150-450); RED BLOOD COUNT 5.02 10^6/uL (4.35-5.55); SEGMENTED NEUTROPHILS % (AUTO) 89.9 % (42-78); TOTAL CELLS COUNTED % (AUTO) 100 %
[2019-08-28 17:10] VITALS: BP 114/66
== END 2019-08-28 17:10 | disposition home or self-care (01) ==
LOC: ER 10:29
DX: M54.42 Lumbago with sciatica, left side (principal); G89.29 Other chronic pain; R07.9 Chest pain, unspecified; M25.552 Pain in left hip; M79.605 Pain in left leg; M51.36 Other intervertebral disc degeneration, lumbar region; Z79.899 Other long term (current) drug therapy; F17.200 Nicotine dependence, unspecified, uncomplicated; J45.909 Unspecified asthma, uncomplicated
CPT/HCPCS: 93005; 99285; 96372; 96360; 36415; 83690; 85025; 80053; 81001; 84484; 71046; 72110; 93010; J1885; J1170; J7030; J1100

== ENCOUNTER 2019-09-15 22:01 | Emergency (ER) | payer BC, OTHER ==
[2019-09-15] MEDS ORDERED: ONDANSETRON 4 MG TAB.RAPDIS PO ONE (22:36)
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
[2019-09-16] MEDS ORDERED: HYDROCODONE/ACETAMINOPHEN 5-325 MG (6 TAB/ER DISP) PO PRN (02:19)
[2019-09-16] MEDS ORDERED: HYDROCODONE/ACETAMINOPHEN 5-325 MG TABLET PO ONE (02:19)
--- NOTE | 2019-09-16 02:39 | ER Document Report ---
Entered by ELIZA PATRICIO SCRIBE 09/16/19 0221 Acting as scribe for:GABY BRICENO IV, MD ED General - General Chief Complaint: Jaw Pain Stated Complaint: JAW INJURY/JAW PAIN Time Seen by Provider: 09/15/19 22:34 Mode of Arrival: Ambulatory Information source: Patient Notes: This 28 year old male patient presents to the ED today with complaints of jaw pain that began around 2030 last night after playing with his dog. Patient states that his dog jumped on him and head butted him under his chin. Patient reports nausea, but denies dyspnea or difficulty swallowing. TRAVEL OUTSIDE OF THE [place] IN LAST 30 DAYS: No - Related Data Allergies/Adverse Reactions: cefaclor [From [facility]] Adverse Reaction (Verified 03/03/19 16:24) Urticaria Past Medical History - General Information source: Patient - Social History Smoking Status: Unknown if Ever Smoked Cigarette use (# per day): No Chew tobacco use (# tins/day): No Smoking Education Provided: No Frequency of alcohol use: Rare Drug Abuse: None Family History: Reviewed & Not Pertinent Patient has suicidal ideation: No Patient has homicidal ideation: No Pulmonary Medical History: Reports: Hx Asthma Musculoskeletal Medical History: Reports Hx Arthritis, Reports Hx Musculoskeletal Trauma Psychiatric Medical History: Reports: Hx Depression Past Surgical History: Reports: Other - plastic facial - Immunizations Immunizations up to date: Yes Hx Diphtheria, Pertussis, Tetanus Vaccination: Yes - unknown Review of Systems - Review of Systems Constitutional: No symptoms reported EENT: See HPI, Other - Jaw pain Cardiovascular: No symptoms reported Respiratory: No symptoms reported Gastrointestinal: See HPI, Nausea Male Genitourinary: No symptoms reported Musculoskeletal: No symptoms reported Skin: No symptoms reported Hematologic/Lymphatic: No symptoms reported Neurological/Psychological: No symptoms reported -: Yes All other systems reviewed and negative Physical Exam - Vital signs Vitals: Temp Pulse Resp BP Pulse Ox 98.1 F 81 16 124/85 98 09/15/19 22:26 09/15/19 22:26 09/15/19 22:26 09/15/19 22:26 09/15/19 22:26 - General General appearance: Alert - HEENT Head: Normocephalic, Atraumatic Eyes: Normal Pupils: PERRL Notes: Tender to palpate in left TMJ. Mild swelling to this area appreciated. No crep itus or step-off. Patient is able to open his mouth evenly on both sides and talk in full sentences. Intraoral exam reveals no evidence of tooth fracture or buccal laceration. - Respiratory Respiratory status: No respiratory distress Chest status: Nontender Breath sounds: Normal Chest palpation: Normal - Cardiovascular Rhythm: Regular Heart sounds: Normal auscultation Murmur: No - Abdominal Inspection: Normal Distension: No distension Bowel sounds: Normal Tenderness: Nontender Organomegaly: No organomegaly - Back Back: Normal, Nontender - Extremities General upper extremity: Normal inspection General lower extremity: Normal inspection - Neurological Neuro grossly intact: Yes - Psychological Associated symptoms: Normal affect, Normal mood - Skin Skin Temperature: Warm Skin Moisture: Dry Skin Color: Normal Course - Vital Signs Vital signs: Temp Pulse Resp BP Pulse Ox 98.2 F 61 16 111/78 97 09/16/19 01:03 09/16/19 01:03 09/16/19 01:03 09/16/19 01:03 09/16/19 01:03 Discharge - Discharge Clinical Impression: Facial contusion Qualifiers: Encounter type: initial encounter Qualified Code(s): S00.83XA - Contusion of other part of head, initial encounter Condition: Good Disposition: HOME, SELF-CARE Additional Instructions: Return to the Emergency Department without delay if any worse. Contusion Your injury has resulted in a contusion -- a crushing of the deep tissues. No injury to important structures was detected during the physician's exam. Contusions vary in the amount of pain they cause, and in the length of time required for healing. Typically, the area will become bruised, and will remain painful to touch for two or three weeks. However, most patients are back to working and playing within a few days. After the initial period of rest and cold-packs, your symptoms (together with the doctor's recommendations) will determine how rapidly you can get back to full activity. Usually this means "do what feels okay, but don't do things that hurt." If re-examination was recommended, it's important to follow up as instructed. Call the doctor or return any time if pain increases, if swelling becomes severe, if you develop numbness or weakness in an injured extremity, or if any other alarming symptoms occur. HOME CARE INSTRUCTIONS & INFORMATION: Thank you for choosing us for your medical needs. We hope you're satisfied with the care you received. After you leave, you must properly care for your problem and, at the same time, observe its progress. Any condition can change. Some illnesses can change rapidly over hours or days. If your condition worsens, return to the Emergency Department or see your physician promptly. ABOUT YOUR X-RAYS AND EKG'S: If you had an EKG or X-rays taken, they have been read by the Emergency Physician. The X-rays and EKG's will also be read by a Radiologist or Automotive Glass Mechanic within 24 hours. If discrepancies are noted, you will be notified by telephone. Please be certain the ED has a correct telephone number & address where you can be reached. Also, realize that some fractures or abnormalities do not show up on initial X-rays. If your symptoms continue, see your physician. ABOUT YOUR LABORATORY TEST: If you had laboratory tests, the results have been reviewed by the Emergency Physician. Some test results (for example cultures) may not be available for several days. You will be contacted if any test result shows you need additional treatment. Please be certain the ED has a correct telephone number and address where you can be reached. ABOUT YOUR MEDICATIONS: You will receive instructions on how to take your medicine on the prescription label you receive. Additional information may be provided by the Pharmacy. If you have questions afterwards, call the ED for clarification or further instructions. Some prescribed medications may cause drowsiness. Do not perform tasks such as driving a car or operating machinery without consulting your Pharmacist. If you feel you need a refill of pain medication, your condition will need re-evaluation. Please do not call for a refill of any medication. ABOUT YOUR SIGNATURE: Signature of this document acknowledges to followin. Understanding that you received emergency treatment and that you may be released before al medical problems are known or treated. Please be certain the ED has a correct phone number & address where you can be reached. 2. Acknowledgement that you will arrange for follow-up care as recommended. 3. Authorization for the Emergency Physician to provide information to your follow-up Physician in order to maximize your care. AT ANY TIME, IF YOUR SYMPTOMS CHANGE SIGNIFICANTLY OR WORSEN OR YOU DEVELOP NEW SYMPTOMS, RETURN TO THE EMERGENCY DEPARTMENT IMMEDIATELY FOR RE-EVALUATION. OUR GOAL IS TO PROVIDE EXCELLENT MEDICAL CARE! WE HOPE THAT WE HAVE MET YOUR EXPECTATIONS DURING YOUR EMERGENCY DEPARTMENT VISIT AND THAT YOU FEEL YOU HAVE RECEIVED EXCELLENT CARE! Prescriptions: Hydrocodone/Acetaminophen [[place] 5-325 mg Tablet] 1 tab PO Q6HP PRN #15 tablet PRN Reason: pain Forms: Return to Work I personally performed the services described in the documentation, reviewed and edited the documentation which was dictated to the scribe in my presence, and it accurately records my words and actions.
[2019-09-16 02:51] VITALS: BP 121/76
== END 2019-09-16 02:51 | disposition home or self-care (01) ==
LOC: ER 22:01
DX: S00.83XA Contusion of other part of head, initial encounter (principal); R68.84 Jaw pain; W22.8XXA Striking against or struck by other objects, initial encounter; Z88.1 Allergy status to other antibiotic agents; J45.909 Unspecified asthma, uncomplicated
CPT/HCPCS: 70110; S0119; 99283

== ENCOUNTER → 2020-07-10 | Outpatient (CLI) | payer BC ==
--- NOTE | 2020-07-10 14:54 | NEURO WORKBENCH EEG REPORT ---
EEG Report Patient: Ramirez Blair ID: [id number] Referring Doctor: Shay Mitchell MD DOS: 07/10/2020 Medications: None History This is a 29 year old left handed male with a history of migraines, seizures since June 2019 after head injury; his last seizure was two weeks ago; on no medication since March 2020. This EEG was requested for seizures. EEG Interpretation This EEG was recorded in the awake, drowsy, and sleep states. The awake EEG is characterized by a well-organized background with a well-developed and reactive posterior dominant rhythm of 10 Hz. The remainder of the background was characterized by a combination of alpha with some beta frequencies. Drowsiness was characterized by slowing of the background rhythms. Vertex waves and sleep spindles were seen in the midline head regions. Photic stimulation resulted in a good driving response. Hyperventilation resulted in generalized slowing of the background. There were no epileptiform abnormalities. The EKG showed a regular rhythm. EEG Classification * Normal EEG Impression This EEG is within normal limits for age. INTERPRETING NEUROLOGIST: Cintia Villafuerte MD, [facility] Board Certified in Neurology, with special qualification in Child Neurology, and in Clinical Neurophysiology [facility]
== END ==
LOC: NEURO 12:38
PROVIDERS: ATTEND Pediatrics
DX: R56.9 Unspecified convulsions (principal)
CPT/HCPCS: 95819